=== PATIENT | male | born 1965 | race Caucasian/White ===

== ENCOUNTER 2020-08-02 10:52 | Inpatient (IN) ==
[2020-08-02] MEDS ORDERED: SODIUM CHLORIDE 0.9% 500 ML IV STA (11:39)
[2020-08-02 11:58] LABS: Appearance Urine Clear (Clear); Bilirubin Urine Negative (Negative); Blood Urine Negative (Negative); Color Urine Dark Yellow; Glucose Urine UA Negative (Negative); Ketones Urine Negative (Negative); Leukocyte Esterase Urine Negative (Negative); Nitrite Urine Negative (Negative); Protein Urine Negative (Negative); Specific Gravity Urine 1.018 (1.000-1.030); Urobilinogen Urine Positive (Negative); pH Urine 6.5 (4.5-7.5)
[2020-08-02 12:01] LABS: Basophils # (auto) 0.01 K/uL (0-0.2); Basophils % (auto) 0.1 %; Eosinophils # (auto) 0.05 K/uL (0-0.5); Eosinophils % (auto) 0.7 %; Hematocrit (blood only) 42.9 % (42-52); Hemoglobin 14.7 g/dL (14.0-18.0); Immature Granulocytes # (auto) 0.01 K/uL (0.00-0.02); Immature Granulocytes % (auto) 0.1 %; Lymphocytes # (auto) 0.59 K/uL (1.2-3.4); Lymphocytes % (auto) 8.8 %; Mean Corpuscular Hemoglobin 34.9 pg (25-34); Mean Corpuscular Hgb Conc 34.3 g/dL (32-36); Mean Corpuscular Volume 101.9 fL (80-100); Mean Platelet Volume 9.6 fL (7.4-10.4); Monocytes # (auto) 0.62 K/uL (0.11-0.59); Monocytes % (auto) 9.2 %; Neutrophils # (auto) 5.43 K/uL (1.4-6.5); Neutrophils % (auto) 81.1 %; Platelet Count 249 K/uL (130-400); RDW Standard Deviation 48.5 fL (36.4-46.3); Red Blood Count 4.21 M/uL (4.7-6.1); White Blood Count 6.71 K/uL (4.8-10.8)
[2020-08-02] MEDS ORDERED: HYDROmorphone INJ 0.5 MG/0.5 ML SYR IV STA ×2 (12:11→12:48)
[2020-08-02] MEDS ORDERED: ONDANSETRON INJ 2 MG/ML 2 ML VIAL IV STA (12:11)
[2020-08-02 12:12] LABS: Albumin Level 3.7 gm/dl (3.4-5.0); BUN Creatinine Ratio 13.7 (10-20); Calcium 9.8 mg/dl (8.5-10.1); Creatinine Clr Calc Pharmacy 85.6 ml/min; Est GFR (African American) 90.1; Est GFR (Non-African American) 77.7; Potassium 3.7 mmol/L (3.5-5.1)
[2020-08-02 12:15] LABS: Bilirubin,Total 2.7 mg/dl (0.2-1); Globulin 3.6 gm/dl (2.5-4.0); Total Protein 7.3 gm/dl (6.4-8.2)
[2020-08-02] MEDS ORDERED: OPTIRAY 300 100mL IV ONE (13:16)
--- NOTE | 2020-08-02 13:40 | CT Scan Report ---
CT abd pelvis IV con only CLINICAL HISTORY: Epigastric pain COMPARISON STUDY: None. TECHNIQUE: Patient was scanned in a dynamic helical fashion during intravenous administration of 89 c c of Optiray 300 A dose lowering technique was utilized adhering to the principles of ALARA. CT DOSE: 511.12 mGy.cm FINDINGS: Lower chest: There are bibasilar atelectatic changes. Liver: There is mild hepatic steatosis. No focal hepatic masses are visualized. There is minimal duct al prominence. Gallbladder: Mildly distended. There is mild gallbladder wall thickening. No calculi are visualized o n CT scanning. There is borderline common bile duct enlargement. There is borderline common bile duct wall thickening. Spleen: Normal in size and attenuation. Pancreas: Unremarkable. Adrenal glands: Unremarkable. Kidneys: There is symmetric renal cortical enhancement. The kidneys are normal in size without hydron ephrosis. Bowel: There are no transition zones indicate bowel obstruction. There is no evidence of acute divert iculitis. The appendix is not visualized with certainty. There are no findings to indicate acute appe ndicitis. Peritoneum: There is trace free pelvic fluid. There is no free intraperitoneal air. Vasculature: The abdominal aorta is normal in course and caliber. Adenopathy: None. Pelvic viscera: The bladder, and pelvic viscera are unremarkable. Skeletal structures: No destructive osseous lesions are seen. IMPRESSION: 1. No evidence of bowel obstruction. No evidence of free air 2. Mild gallbladder distention, and mild gallbladder wall thickening. Borderline common bile duct enl argement and wall thickening. Minimally prominent central intrahepatic biliary ducts. Clinical correl ation with regards to cholecystitis is recommended. A biliary ultrasound should be considered in foll ow-up. ACT 112: Negative or not required by law. Electronically signed by: Jacob Jose M.D. 08/02/2020 1:38 PM
--- NOTE | 2020-08-02 15:36 | Electrocardiogram Report ---
Test Reason : Blood Pressure : / mmHG Vent. Rate : 049 BPM Atrial Rate : 049 BPM P-R Int : 156 ms QRS Dur : 092 ms QT Int : 432 ms P-R-T Axes : 060 011 004 degrees QTc Int : 390 ms Sinus bradycardia Prominent U waves(consider hypokalemia,drug effect, etc.) Abnormal ECG No previous ECGs available Confirmed by Montez Eden ([id number]) on 08/02/2020 3:35:41 PM Referred By: Confirmed By:Montez Eden
--- NOTE | 2020-08-02 15:43 | Ultrasound Report ---
ULTRASOUND RIGHT UPPER QUADRANT ABDOMEN CLINICAL HISTORY: Right upper quadrant abdominal pain. COMPARISON STUDY: Abdominal CT performed the same day 08/02/2020. TECHNIQUE: Real-time, grayscale, and color flow sonography of the right upper quadrant of the abdomen was performed. Images are reviewed in the transverse and longitudinal planes. FINDINGS: Liver: The liver is mildly enlarged and demonstrates heterogeneously increased echotexture consistent with hepatic steatosis. There is no intrahepatic biliary ductal dilatation. The main portal vein is patent. Gallbladder: The gallbladder is is distended. The gallbladder wall is mildly thickened and edematous, measuring up to 4 mm. No shadowing gallstones are identified. A sonographic Gastelum's sign is reporte dly absent; however, the patient received analgesia. The common bile duct measures up to 0.3 cm in di ameter. Pancreas: Visualized portions of the pancreatic head and body are normal in appearance. Right kidney: Survey images of the right kidney demonstrate normal size and echotexture. There is no hydronephrosis. Ascites: There is trace prostatic ascites. IMPRESSION: 1. Abnormal gallbladder as above. Although no shadowing gallstones are identified, findings are emmie rning for acute cholecystitis. Clinical and laboratory correlation will be required. If clinically wa rranted a nuclear hepatobiliary scan could be considered for further assessment. 2. Hepatomegaly and hepatic steatosis. 3. Trace perihepatic ascites. ACT 112: Negative or not required by law. Electronically signed by: Leif Granda M.D. 08/02/2020 3:42 PM
[2020-08-02] MEDS ORDERED: PIPERACILLIN/TAZOBACTAM 4.5 GM/120 ML BAG IV ONE (15:56)
[2020-08-02] MEDS ORDERED: PIPERACILL/TAZOBAC CONSULT ACTIVE PRN ×2 (15:56→19:19)
--- NOTE | 2020-08-02 16:49 | History & Physical Report ---
Date of Service August 02, 2020 Assessment & Plan (1) Acute cholecystitis: Presents with acute right upper quadrant pain, elevated LFTs and obstructive pattern, and borderline dilated CBD and dilated intrahepatic biliary ducts With evidence of acute cholecystitis both on CT abdomen/pelvis and RUQ US. -Admit to medical/surgical floor for further evaluation and treatment -Check MRCP to rule out choledocholithiasis which is suspected -Continue IV Zosyn -Consult GI as may need ERCP-not emergent at this time as there is no signs of ascending cholangitis-GI was notified personally by me -Consult surgery to evaluate for cholecystectomy -Follow LFTs, CBC, BMP -Pain control with IV Dilaudid as needed -Keep n.p.o. -Start maintenance fluids with LR at 100 mL's per hour He is typically very active, walks many miles per week and can easily go up and down flight of stairs without any chest pain or shortness of breath. 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 Initially, he waited to see if it would go away and tried to eat some breakfast but then it got much worse and became severe. Pain is nonradiating, feels like a fist punching into his gut, and was associated with sweating, but no nausea or vomiting. He had a bowel movement this morning that he reports was "dry" and unusual for him but no blood. He denies any fevers or chills. He has no prior history of gallbladder or pancreas problems. He does drink 2 or 3 alcoholic drinks every day. In the ER, he was found to have elevated LFTs and an obstructive pattern, normal lipase, and CT of the abdomen/pelvis showed mildly distended gallbladder with mild gallbladder wall thickening and borderline CBD enlargement with borderline CBD wall thickening, no cholelithiasis noted, and mildly prominent central intrahepatic biliary ducts. Gallbladder ultrasound showed distended gallbladder with gallbladder wall thickening, no gallstones, and CBD was only 3 mm in diameter, and trace perihepatic ascites. In the ER, he received IV Dilaudid x2 doses, 1 L normal saline, and IV Zofran, as well as IV Zosyn. He will be admitted for acute cholecystitis with suspected choledocholithiasis. Allergies Allergy/AdvReac Type Severity Reaction Status Date / Time No Known Allergies Allergy Unverified 08/02/20 14:15 Home Medications Medication Instructions Recorded Confirmed Type atorvastatin 40 mg PO HS 08/02/20 08/02/20 History loratadine 10 mg PO DAILY PRN 08/02/20 08/02/20 History milk thistle 0 mg PO DAILY 08/02/20 08/02/20 History multivitamin 1 tab PO DAILY 08/02/20 08/02/20 History selenium 100 mcg PO DAILY 08/02/20 08/02/20 History turmeric 400 mg PO DAILY 08/02/20 08/02/20 History valacyclovir 500 mg PO UD 08/02/20 08/02/20 History Past Med/Surg History Medical History (Updated 08/02/20 @ 18:10 by Melba Berkowitz MD) Hyperlipidemia Recurrent cold sores Seasonal allergies Surgical History History of ankle surgery Family History Mother , Age 64 Cirrhosis with alcoholism Social History (Updated 08/02/20 @ 18:05 by Melba Berkowitz MD) Smoking Status: Never smoker Hx Alcohol Use: Yes Alcohol type: beer and hard liquor Alcohol type Comment: 2- 3 drinks daily Alcohol Intake Frequency: 4 or More x per/Week Hx Substance Use: No marital status: Feels Safe at Home: Yes Review of Systems Review of Systems: All systems reviewed & are unremarkable except as noted in HPI & below Physical Exam Constitutional: WD/WN, vitals as above Eyes: + anicteric sclerae ENMT: external ear and nose normal, oropharynx normal Neck: trachea midline, no thyromegaly Respiratory: normal respiratory effort, lungs clear to auscultation Cardiovascular: RRR, no murmur, no edema Chest (Breasts): Chest: normal inspection of chest Gastrointestinal (Abdomen): Inspection/Auscultation: abdomen normal to inspection and normal bowel sounds; abdomen not distended Percussion/Palpation: + abdomen tender (in RUQ w/o guarding or rebound) and abdo men soft; no guarding and abdomen not rigid Musculoskeletal: Extremities: extremities normal to inspection; no cyanosis and no clubbing Skin: no rashes, warm and dry Neurologic: moves all extremities and awake; no focal motor deficits Psychiatric: A+Ox3, euthymic affect Lymphatic: no lymphedema Results & Data Results & Data ([facility]) Vital Signs (Past 12 Hours) Vital Signs Temp Pulse Resp BP Pulse Ox 08/02/20 14:31 51 L 17 136/92 99 08/02/20 14:30 63 22 98 08/02/20 14:01 54 L 16 96 08/02/20 14:00 51 L 22 141/93 H 96 08/02/20 13:31 52 L 15 93 08/02/20 13:30 51 L 16 129/88 94 08/02/20 13:01 46 L 10 L 99 08/02/20 13:00 44 L 10 L 170/96 H 100 08/02/20 12:31 46 L 20 169/109 H 94 08/02/20 12:30 46 L 17 100 08/02/20 12:25 54 L 14 178/102 H 99 08/02/20 12:24 54 L 27 H 175/108 H 100 08/02/20 12:00 52 L 14 100 08/02/20 11:38 54 L 16 92 08/02/20 11:00 36.4 C L 57 L 16 154/91 H 99 Laboratory Results 08/02/20 08/02/20 08/02/20 Range/Units 16:22 16:22 11:30 WBC (4.8-10.8) K/uL RBC (4.7-6.1) M/uL Hgb (14.0-18.0) g/dL Hct (42-52) % MCV (80-100) fL MCH (25-34) pg MCHC (32-36) g/dL RDW Std Deviation (36.4-46.3) fL RDW Coeff of Chris (11.5-14.5) % Plt Count (130-400) K/uL MPV (7.4-10.4) fL Immature Gran % (Auto) % Neut % (Auto) % Lymph % (Auto) % Ada % (Auto) % Eos % (Auto) % Baso % (Auto) % Neut # (Auto) (1.4-6.5) K/uL Lymph # (Auto) (1.2-3.4) K/uL Ada # (Auto) (0.11-0.59) K/uL Eos # (Auto) (0-0.5) K/uL Baso # (Auto) (0-0.2) K/uL Immature Gran # (Auto) (0.00-0.02) K/uL Sodium (136-145) mmol/L Potassium (3.5-5.1) mmol/L Chloride (98-107) mmol/L Carbon Dioxide (21-32) mmol/L Anion Gap (3-11) BUN (7-18) mg/dl Creatinine (0.6-1.4) mg/dl Est Cr Clr Drug Dosing ml/min Est GFR ( Amer) Est GFR (Non-Af Amer) BUN/Creatinine Ratio (10-20) Glucose (70-99) mg/dl Calcium (8.5-10.1) mg/dl Total Bilirubin (0.2-1) mg/dl AST (15-37) U/L ALT (12-78) U/L Alkaline Phosphatase (45-117) U/L Troponin I < 0.015 (0-0.045) ng/ml Total Protein (6.4-8.2) gm/dl Albumin (3.4-5.0) gm/dl Globulin (2.5-4.0) gm/dl Albumin/Globulin Ratio (0.9-2) Lipase (73-393) U/L Urine Color Urine Appearance (Clear) Urine pH (4.5-7.5) Ur Specific Irving (1.000-1.030) Urine Protein (Negative) Urine Glucose (UA) (Negative) Urine Ketones (Negative) Urine Blood (Negative) Urine Nitrite (Negative) Urine Bilirubin (Negative) Urine Urobilinogen (Negative) Ur Leukocyte Esterase (Negative) COVID-19 Eval Order CovFluRsv at [facility] SARS-CoV-2 (PCR) Pending Influenza Type A (PCR) Pending Influenza Type B (PCR) Pending RSV (RT-PCR) Pending 08/02/20 08/02/20 08/02/20 Range/Units 11:30 11:30 11:20 WBC 6.71 (4.8-10.8) K/uL RBC 4.21 L (4.7-6.1) M/uL Hgb 14.7 (14.0-18.0) g/dL Hct 42.9 (42-52) % MCV 101.9 H (80-100) fL MCH 34.9 H (25-34) pg MCHC 34.3 (32-36) g/dL RDW Std Deviation 48.5 H (36.4-46.3) fL RDW Coeff of Chris 13.0 (11.5-14.5) % Plt Count 249 (130-400) K/uL MPV 9.6 (7.4-10.4) fL Immature Gran % (Auto) 0.1 % Neut % (Auto) 81.1 % Lymph % (Auto) 8.8 % Ada % (Auto) 9.2 % Eos % (Auto) 0.7 % Baso % (Auto) 0.1 % Neut # (Auto) 5.43 (1.4-6.5) K/uL Lymph # (Auto) 0.59 L (1.2-3.4) K/uL Ada # (Auto) 0.62 H (0.11-0.59) K/uL Eos # (Auto) 0.05 (0-0.5) K/uL Baso # (Auto) 0.01 (0-0.2) K/uL Immature Gran # (Auto) 0.01 (0.00-0.02) K/uL Sodium 139 (136-145) mmol/L Potassium 3.7 (3.5-5.1) mmol/L Chloride 103 (98-107) mmol/L Carbon Dioxide 31 (21-32) mmol/L Anion Gap 5.0 (3-11) BUN 15 (7-18) mg/dl Creatinine 1.07 (0.6-1.4) mg/dl Est Cr Clr Drug Dosing 85.6 ml/min Est GFR ( Amer) 90.1 Est GFR (Non-Af Amer) 77.7 BUN/Creatinine Ratio 13.7 (10-20) Glucose 151 H (70-99) mg/dl Calcium 9.8 (8.5-10.1) mg/dl Total Bilirubin 2.7 H (0.2-1) mg/dl AST 496 H (15-37) U/L ALT 520 H (12-78) U/L Alkaline Phosphatase 308 H (45-117) U/L Troponin I (0-0.045) ng/ml Total Protein 7.3 (6.4-8.2) gm/dl Albumin 3.7 (3.4-5.0) gm/dl Globulin 3.6 (2.5-4.0) gm/dl Albumin/Globulin Ratio 1.0 (0.9-2) Lipase 75 (73-393) U/L Urine Color Dark Yellow Urine Appearance Clear (Clear) Urine pH 6.5 (4.5-7.5) Ur Specific Irving 1.018 (1.000-1.030) Urine Protein Negative (Negative) Urine Glucose (UA) Negative (Negative) Urine Ketones Negative (Negative) Urine Blood Negative (Negative) Urine Nitrite Negative (Negative) Urine Bilirubin Negative (Negative) Urine Urobilinogen Positive H (Negative) Ur Leukocyte Esterase Negative (Negative) COVID-19 Eval Order SARS-CoV-2 (PCR) Influenza Type A (PCR) Influenza Type B (PCR) RSV (RT-PCR) Diagnostic Findings Abdomen/Pelvis CT 08/02/20 12:12 CT abd pelvis IV con only CLINICAL HISTORY: Epigastric pain COMPARISON STUDY: None. TECHNIQUE: Patient was scanned in a dynamic helical fashion during intravenous administration of 89 cc of Optiray 300 A dose lowering technique was utilized adhering to the principles of ALARA. CT DOSE: 511.12 mGy.cm FINDINGS: Lower chest: There are bibasilar atelectatic changes. Liver: There is mild hepatic steatosis. No focal hepatic masses are visualized. There is minimal ductal prominence. Gallbladder: Mildly distended. There is mild gallbladder wall thickening. No calculi are visualized on CT scanning. There is borderline common bile duct enlargement. There is borderline common bile duct wall thickening. Spleen: Normal in size and attenuation. Pancreas: Unremarkable. Adrenal glands: Unremarkable. Kidneys: There is symmetric renal cortical enhancement. The kidneys are normal in size without hydronephrosis. Bowel: There are no transition zones indicate bowel obstruction. There is no evidence of acute diverticulitis. The appendix is not visualized with certainty. There are no findings to indicate acute appendicitis. Peritoneum: There is trace free pelvic fluid. There is no free intraperitoneal air. Vasculature: The abdominal aorta is normal in course and caliber. Adenopathy: None. Pelvic viscera: The bladder, and pelvic viscera are unremarkable. Skeletal structures: No destructive osseous lesions are seen. IMPRESSION: 1. No evidence of bowel obstruction. No evidence of free air 2. Mild gallbladder distention, and mild gallbladder wall thickening. Borderline common bile duct enlargement and wall thickening. Minimally prominent central intrahepatic biliary ducts. Clinical correlation with regards to cholecystitis is recommended. A biliary ultrasound should be considered in follow-up. ACT 112: Negative or not required by law. Electronically signed by: Jacob Jose M.D. 08/02/2020 1:38 PM Gallbladder Ultrasound 08/02/20 13:45 ULTRASOUND RIGHT UPPER QUADRANT ABDOMEN CLINICAL HISTORY: Right upper quadrant abdominal pain. COMPARISON STUDY: Abdominal CT performed the same day 08/02/2020. TECHNIQUE: Real-time, grayscale, and color flow sonography of the right upper quadrant of the abdomen was performed. Images are reviewed in the transverse and longitudinal planes. FINDINGS: Liver: The liver is mildly enlarged and demonstrates heterogeneously increased echotexture consistent with hepatic steatosis. There is no intrahepatic biliary ductal dilatation. The main portal vein is patent. Gallbladder: The gallbladder is is distended. The gallbladder wall is mildly thickened and edematous, measuring up to 4 mm. No shadowing gallstones are identified. A sonographic Gastelum's sign is reportedly absent; however, the patient received analgesia. The common bile duct measures up to 0.3 cm in diameter. Pancreas: Visualized portions of the pancreatic head and body are normal in appearance. Right kidney: Survey images of the right kidney demonstrate normal size and echotexture. There is no hydronephrosis. Ascites: There is trace prostatic ascites. IMPRESSION: 1. Abnormal gallbladder as above. Although no shadowing gallstones are identified, findings are concerning for acute cholecystitis. Clinical and laboratory correlation will be required. If clinically warranted a nuclear hepatobiliary scan could be considered for further assessment. 2. Hepatomegaly and hepatic steatosis. 3. Trace perihepatic ascites. ACT 112: Negative or not required by law. Electronically signed by: Leif Granda M.D. 08/02/2020 3:42 PM ECG Additional Comments: ECG on 08/02/2020 at 1135 with sinus bradycardia, rate 49, prominent U waves Code Status & VTE Plan Code Status Full code VTE Prophylaxis Plan VTE Prophylaxis will be ordered: Yes PG Care Time/CCT Total # of Minutes Spent Total Time Spent with Patient: Total time spent is greater than 50% in coordination of care (as documented) at patient's floor/unit and/or counseling patient: Coding Level of Care Code 38389 Initial Inpt Care Lvl 3 Diagnoses Acute cholecystitis K81.0 Elevated LFTs R79.89 Abdominal pain R10.9 Hyperlipidemia E78.5 DVT prophylaxis Z29.9
[2020-08-02 17:10] LABS: Influenza A virus by PCR Negative (Neg); Influenza B virus by PCR Negative (Neg); RSV by PCR Negative (Neg); SARS CoV2 RNA(COVID-19) InHosp NEGATIVE (Negative)
--- NOTE | 2020-08-02 19:24 | Emergency Department Note ---
History of Present Illness General Chief complaint: Abdominal Pain Stated complaint: SEVERE ABDOMINAL PAIN SINCE 6AM Time Seen by Provider: 08/02/20 11:47 History of Present Illness Maximum Pain Intensity: 1 54-year-old male who presents to emergency department with complaint of intermittent and sharp epigastric pain that started this morning at the time of awakening. The patient reports that the pain does occasionally radiate into the back. He denies any pain extending into the chest, shoulder, neck or lower abdomen. The patient reports that he did drink a moderate amount of alcohol last night. He also admits to a history of significant alcohol use. He has a sister who has a history of cirrhosis. The patient denies any personal history of GERD, pancreatitis, hepatitis, kidney stones or other bowel disease. The patient reports that the pain feels better when laying on his back, worse when laying on his stomach. He denies any shortness of breath, significant nausea, f ever, constipation, diarrhea or urinary symptoms. The patient rates his discomfort an 8 out of 10. Home Medications Medication Instructions Recorded Confirmed Type atorvastatin 40 mg PO HS 08/02/20 08/02/20 History loratadine 10 mg PO DAILY PRN 08/02/20 08/02/20 History milk thistle 0 mg PO DAILY 08/02/20 08/02/20 History multivitamin 1 tab PO DAILY 08/02/20 08/02/20 History selenium 100 mcg PO DAILY 08/02/20 08/02/20 History turmeric 400 mg PO DAILY 08/02/20 08/02/20 History valacyclovir 500 mg PO UD 08/02/20 08/02/20 History Allergies Allergy/AdvReac Type Severity Reaction Status Date / Time No Known Allergies Allergy Unverified 08/02/20 14:15 Past Med/Surg History Medical History Acute arthritis Hyperlipidemia Recurrent cold sores Seasonal allergies Surgical History History of ankle surgery Family History Mother , Age 64 Cirrhosis with alcoholism Social History Smoking Status: Never smoker Second Hand Exposure: No; Do You Dip or Chew Tobacco: No; Tobacco Cessation Education Requested by Patient: No Hx Alcohol Use: Yes Alcohol type: wine and hard liquor Alcohol type Comment: 2- 3 drinks daily Alcohol Intake Frequency: 4 or More x per/Week Hx Substance Use: No Preferred Language: Persian Communication Ability: Effective Dispatcher Electric Power Required: No Beliefs That Will Affect Care: None marital status: Current Living Situation: Spouse Other Information That Helps Us Care for You: No Feels Safe at Home: Yes Assistive Devices: Glasses Review of Systems 10 system review was performed and was negative except for pertinent positives and negatives as indicated in history of present illness Physical Exam Vital Signs Vital Signs - 24 hr 08/02/20 11:00 08/02/20 11:38 08/02/20 12:00 Temperature 36.4 C L Temperature Source Temporal Artery Scan Pulse Rate 57 L 54 L 52 L Pulse Rate from SpO2 Sensor 51 L 56 L Respiratory Rate 16 16 14 Blood Pressure 154/91 H Blood Pressure Mean 112 Pulse Oximetry 99 92 100 Sepsis Recent Fever Within 48 Hours No Sepsis New/Unexplained Change in Mental Status N/A Sepsis Action Taken by Nursing No Action Required 08/02/20 12:24 08/02/20 12:25 08/02/20 12:30 Temperature Temperature Source Pulse Rate 54 L 54 L 46 L Pulse Rate from SpO2 Sensor 54 L 54 L 47 L Respiratory Rate 27 H 14 17 Blood Pressure 175/108 H 178/102 H Blood Pressure Mean 130 127 Pulse Oximetry 100 99 100 Sepsis Recent Fever Within 48 Hours Sepsis New/Unexplained Change in Mental Status Sepsis Action Taken by Nursing 08/02/20 12:31 08/02/20 13:00 08/02/20 13:01 Temperature Temperature Source Pulse Rate 46 L 44 L 46 L Pulse Rate from SpO2 Sensor 47 L 44 L 46 L Respiratory Rate 20 10 L 10 L Blood Pressure 169/109 H 170/96 H Blood Pressure Mean 129 120 Pulse Oximetry 94 100 99 Sepsis Recent Fever Within 48 Hours Sepsis New/Unexplained Change in Mental Status Sepsis Action Taken by Nursing 08/02/20 13:30 08/02/20 13:31 08/02/20 14:00 Temperature Temperature Source Pulse Rate 51 L 52 L 51 L Pulse Rate from SpO2 Sensor 50 L 52 L 51 L Respiratory Rate 16 15 22 Blood Pressure 129/88 141/93 H Blood Pressure Mean 101 109 Pulse Oximetry 94 93 96 Sepsis Recent Fever Within 48 Hours Sepsis New/Unexplained Change in Mental Status Sepsis Action Taken by Nursing 08/02/20 14:01 08/02/20 14:30 08/02/20 14:31 Temperature Temperature Source Pulse Rate 54 L 63 51 L Pulse Rate from SpO2 Sensor 56 L 63 51 L Respiratory Rate 16 22 17 Blood Pressure 136/92 Blood Pressure Mean 106 Pulse Oximetry 96 98 99 Sepsis Recent Fever Within 48 Hours Sepsis New/Unexplained Change in Mental Status Sepsis Action Taken by Nursing 08/02/20 14:32 08/02/20 16:21 08/02/20 16:22 Temperature Temperature Source Pulse Rate 50 L 46 L 48 L Pulse Rate from SpO2 Sensor 51 L Respiratory Rate 17 15 13 Blood Pressure 129/92 Blood Pressure Mean 104 Pulse Oximetry 97 Sepsis Recent Fever Within 48 Hours Sepsis New/Unexplained Change in Mental Status Sepsis Action Taken by Nursing 08/02/20 16:30 08/02/20 16:31 08/02/20 17:00 Temperature Temperature Source Pulse Rate 49 L 53 L 46 L Pulse Rate from SpO2 Sensor Respiratory Rate 19 19 27 H Blood Pressure 130/89 Blood Pressure Mean 102 Pulse Oximetry Sepsis Recent Fever Within 48 Hours Sepsis New/Unexplained Change in Mental Status Sepsis Action Taken by Nursing 08/02/20 17:01 08/02/20 17:02 08/02/20 17:30 Temperature Temperature Source Pulse Rate 53 L 45 L 47 L Pulse Rate from SpO2 Sensor Respiratory Rate 21 20 24 Blood Pressure 136/96 138/89 Blood Pressure Mean 109 105 Pulse Oximetry Sepsis Recent Fever Within 48 Hours Sepsis New/Unexplained Change in Mental Status Sepsis Action Taken by Nursing 08/02/20 17:31 Temperature Temperature Source Pulse Rate 44 L Pulse Rate from SpO2 Sensor Respiratory Rate 17 Blood Pressure Blood Pressure Mean Pulse Oximetry Sepsis Recent Fever Within 48 Hours Sepsis New/Unexplained Change in Mental Status Sepsis Action Taken by Nursing CONSTITUTIONAL: Healthy and well nourished. Alert and oriented X 3. Patient appears in moderately severe discomfort. HEENT: Normocephalic, atraumatic. Pupils equal, round and reactive. No scleral icterus or conjunctival injection/pallor. NECK: Full active range of motion without discomfort. LYMPHATICS: No cervical chain adenopathy. RESPIRATORY: Clear to auscultation bilaterally with no wheezing, crackles, rhonchi or stridor. CARDIOVASCULAR: Regular rate and rhythm with no murmurs, rubs or gallops. GASTROINTESTINAL: Bowel sounds present in all quadrants. Examination shows epigastric tenderness to palpation. Negative McBurney's point tenderness. Negative Gastelum sign. Negative CVA tenderness. No abdominal rigidity, guarding or rebound. No fluid wave. MUSCULOSKELETAL: Full range of motion of all joints without discomfort. INTEGUMENTARY: No rash or other significant dermatologic conditions noted. HEMATOLOGIC: No ecchymosis or petechiae. PSYCHIATRIC: Positive affect. NEUROLOGIC: No focal neurologic deficits noted. Course Course Patient history and physical exam were performed. Nurses notes were reviewed. Vital signs were reviewed, showing a triage blood pressure of 169/109. Patient is also bradycardic at 46 bpm. IV access was established, and labs were drawn. The patient was hydrated with a liter normal saline, and administered IV Dilau did and Zofran. An ECG was performed showing a sinus bradycardia. The patient was placed on security monitor while in the emergency department. Review of labs shows a relatively normal CBC, BMP, lipase and troponin. Further review shows elevated liver transaminases with an AST of 496, ALT 520, alkaline phosphatase of 308 and total bilirubin of 2.7. An initial CT with IV contrast of the abdomen and pelvis showed evidence for mild gallbladder distention and wall thickening, along with borderline, bile duct enlargement and wall thickening. No other acute intra-abdominal findings such as bowel obstruction or free air was noted. After returning from CT, the patient did request additional an algesics, and was administered additional IV Dilaudid which significantly helped to control his pain. At this point, I did recommend gallbladder ultrasound, with the patient in agreement. Ultrasound was suggestive of acute cholecystitis. Findings were discussed with the patient. At this point, I did discuss the case with general surgery (Dr. Franklin), who recommended hospitalist admission for MRCP. The patient was in agreement with admission. He was ordered and administered IV Zosyn. He reported continued adequate pain control [facility] Please see further dictations for further treatment and final disposition. Administered Medications Piperacillin Sod/Tazobactam (Sod 3.375 gm/ Dextrose) 115 mls @ 28.75 mls/hr IV Q8H [facility]; Protocol Stop: 08/12/20 20:59 Last Admin: 08/02/20 20:15 Dose: 28.8 mls/hr Documented by: [id number] Lactated Ringer's (Lr) 1,000 mls @ 100 mls/hr IV .Q10H JAY Stop: 09/01/20 19:18 Last Admin: 08/02/20 20:13 Dose: 100 mls/hr Documented by: [id number] Discontinued Medications Hydromorphone HCl (Hydromorphone Inj 0.5 Mg/0.5 Ml Syr) 0.5 mg IV NOW STA Stop: 08/02/20 12:12 Last Admin: 08/02/20 12:21 Dose: 0.5 mg Documented by: [id number] Hydromorphone HCl (Hydromorphone Inj 0.5 Mg/0.5 Ml Syr) 0.5 mg IV NOW STA Stop: 08/02/20 12:49 Last Admin: 08/02/20 12:51 Dose: 0.5 mg Documented by: [id number] Sodium Chloride (Nss) 500 mls @ 999 mls/hr IV .Q31M STA Stop: 08/02/20 12:09 Last Infusion: 08/02/20 12:22 Dose: 0 mls/hr Documented by: [id number] Admin: 08/02/20 11:49 Dose: 999 mls/hr Documented by: [id number] Piperacillin Sod/Tazobactam Sod (Zosyn) 4.5 gm in 120 mls @ 240 mls/hr IV NOW ONE Stop: 08/02/20 16:25 Last Infusion: 08/02/20 17:09 Dose: 0 mls/hr Documented by: [id number] Admin: 08/02/20 16:22 Dose: 240 mls/hr Documented by: [id number] Ioversol (Optiray 300 100ml) 89 ml IV ONCE ONE Stop: 08/02/20 13:17 Last Admin: 08/02/20 13:18 Dose: 89 ml Documented by: [id number] Ondansetron HCl (Ondansetron Inj 2 Mg/Ml 2 Ml Vial) 4 mg IV NOW STA Stop: 08/02/20 12:12 Last Admin: 08/02/20 12:20 Dose: 4 mg Documented by: [id number] Medical Decision Making Medical Records Attestation: I reviewed the patient's medical records. Home Medications Current Medication List: was personally reviewed by me Laboratory Data Attestation: I reviewed the patient's lab results. Result diagrams: 08/02/20 11:30 08/02/20 11:30 Lab Results 08/02/20 08/02/20 08/02/20 Range/Units 11:20 11:30 11:30 WBC 6.71 (4.8-10.8) K/uL RBC 4.21 L (4.7-6.1) M/uL Hgb 14.7 (14.0-18.0) g/dL Hct 42.9 (42-52) % MCV 101.9 H (80-100) fL MCH 34.9 H (25-34) pg MCHC 34.3 (32-36) g/dL RDW Std Deviation 48.5 H (36.4-46.3) fL RDW Coeff of Chris 13.0 (11.5-14.5) % Plt Count 249 (130-400) K/uL MPV 9.6 (7.4-10.4) fL Immature Gran % (Auto) 0.1 % Neut % (Auto) 81.1 % Lymph % (Auto) 8.8 % [place] % (Auto) 9.2 % Eos % (Auto) 0.7 % Baso % (Auto) 0.1 % Neut # (Auto) 5.43 (1.4-6.5) K/uL Lymph # (Auto) 0.59 L (1.2-3.4) K/uL [place] # (Auto) 0.62 H (0.11-0.59) K/uL Eos # (Auto) 0.05 (0-0.5) K/uL Baso # (Auto) 0.01 (0-0.2) K/uL Immature Gran # (Auto) 0.01 (0.00-0.02) K/uL Sodium 139 (136-145) mmol/L Potassium 3.7 (3.5-5.1) mmol/L Chloride 103 (98-107) mmol/L Carbon Dioxide 31 (21-32) mmol/L Anion Gap 5.0 (3-11) BUN 15 (7-18) mg/dl Creatinine 1.07 (0.6-1.4) mg/dl Est Cr Clr Drug Dosing 85.6 ml/min Est GFR ( Amer) 90.1 Est GFR (Non-Af Amer) 77.7 BUN/Creatinine Ratio 13.7 (10-20) Glucose 151 H (70-99) mg/dl Calcium 9.8 (8.5-10.1) mg/dl Total Bilirubin 2.7 H (0.2-1) mg/dl AST 496 H (15-37) U/L ALT 520 H (12-78) U/L Alkaline Phosphatase 308 H (45-117) U/L Troponin I (0-0.045) ng/ml Total Protein 7.3 (6.4-8.2) gm/dl Albumin 3.7 (3.4-5.0) gm/dl Globulin 3.6 (2.5-4.0) gm/dl Albumin/Globulin Ratio 1.0 (0.9-2) Lipase 75 (73-393) U/L Urine Color Dark Yellow Urine Appearance Clear (Clear) Urine pH 6.5 (4.5-7.5) Ur Specific Sage 1.018 (1.000-1.030) Urine Protein Negative (Negative) Urine Glucose (UA) Negative (Negative) Urine Ketones Negative (Negative) Urine Blood Negative (Negative) Urine Nitrite Negative (Negative) Urine Bilirubin Negative (Negative) Urine Urobilinogen Positive H (Negative) Ur Leukocyte Esterase Negative (Negative) COVID-19 Eval Order SARS-CoV-2 (PCR) (Negative) Influenza Type A (PCR) (Neg) Influenza Type B (PCR) (Neg) RSV (RT-PCR) (Neg) 08/02/20 08/02/20 08/02/20 Range/Units 11:30 16:22 16:22 WBC (4.8-10.8) K/uL RBC (4.7-6.1) M/uL Hgb (14.0-18.0) g/dL Hct (42-52) % MCV (80-100) fL MCH (25-34) pg MCHC (32-36) g/dL RDW Std Deviation (36.4-46.3) fL RDW Coeff of Chris (11.5-14.5) % Plt Count (130-400) K/uL MPV (7.4-10.4) fL Immature Gran % (Auto) % Neut % (Auto) % Lymph % (Auto) % [place] % (Auto) % Eos % (Auto) % Baso % (Auto) % Neut # (Auto) (1.4-6.5) K/uL Lymph # (Auto) (1.2-3.4) K/uL [place] # (Auto) (0.11-0.59) K/uL Eos # (Auto) (0-0.5) K/uL Baso # (Auto) (0-0.2) K/uL Immature Gran # (Auto) (0.00-0.02) K/uL Sodium (136-145) mmol/L Potassium (3.5-5.1) mmol/L Chloride (98-107) mmol/L Carbon Dioxide (21-32) mmol/L Anion Gap (3-11) BUN (7-18) mg/dl Creatinine (0.6-1.4) mg/dl Est Cr Clr Drug Dosing ml/min Est GFR ( Amer) Est GFR (Non-Af Amer) BUN/Creatinine Ratio (10-20) Glucose (70-99) mg/dl Calcium (8.5-10.1) mg/dl Total Bilirubin (0.2-1) mg/dl AST (15-37) U/L ALT (12-78) U/L Alkaline Phosphatase (45-117) U/L Troponin I < 0.015 (0-0.045) ng/ml Total Protein (6.4-8.2) gm/dl Albumin (3.4-5.0) gm/dl Globulin (2.5-4.0) gm/dl Albumin/Globulin Ratio (0.9-2) Lipase (73-393) U/L Urine Color Urine Appearance (Clear) Urine pH (4.5-7.5) Ur Specific Sage (1.000-1.030) Urine Protein (Negative) Urine Glucose (UA) (Negative) Urine Ketones (Negative) Urine Blood (Negative) Urine Nitrite (Negative) Urine Bilirubin (Negative) Urine Urobilinogen (Negative) Ur Leukocyte Esterase (Negative) COVID-19 Eval Order CovFluRsv at [facility] SARS-CoV-2 (PCR) NEGATIVE (Negative) Influenza Type A (PCR) Negative (Neg) Influenza Type B (PCR) Negative (Neg) RSV (RT-PCR) Negative (Neg) Imaging Data Attestation: I personally reviewed and interpreted this imaging study as fol lows: My Impression: My interpretation of a CT with IV contrast of the abdomen and pelvis does show an abnormal gallbladder and common bile duct, concerning for possible acute cholecystitis. Additional findings on CT imaging does not suggest or free air. Gallbladder ultrasound is concerning for acute cholecystitis. Radiologist reports were also reviewed. Radiologist's Impression: Abdomen/Pelvis CT 08/02/20 12:12 CT abd pelvis IV con only CLINICAL HISTORY: Epigastric pain COMPARISON STUDY: None. TECHNIQUE: Patient was scanned in a dynamic helical fashion during intravenous administration of 89 cc of Optiray 300 A dose lowering technique was utilized adhering to the principles of ALARA. CT DOSE: 511.12 mGy.cm FINDINGS: Lower chest: There are bibasilar atelectatic changes. Liver: There is mild hepatic steatosis. No focal hepatic masses are visualized. There is minimal ductal prominence. Gallbladder: Mildly distended. There is mild gallbladder wall thickening. No calculi are visualized on CT scanning. There is borderline common bile duct enlargement. There is borderline common bile duct wall thickening. Spleen: Normal in size and attenuation. Pancreas: Unremarkable. Adrenal glands: Unremarkable. Kidneys: There is symmetric renal cortical enhancement. The kidneys are normal in size without hydronephrosis. Bowel: There are no transition zones indicate bowel obstruction. There is no evidence of acute diverticulitis. The appendix is not visualized with certainty. There are no findings to indicate acute appendicitis. Peritoneum: There is trace free pelvic fluid. There is no free intraperitoneal air. Vasculature: The abdominal aorta is normal in course and caliber. Adenopathy: None. Pelvic viscera: The bladder, and pelvic viscera are unremarkable. Skeletal structures: No destructive osseous lesions are seen. IMPRESSION: 1. No evidence of bowel obstruction. No evidence of free air 2. Mild gallbladder distention, and mild gallbladder wall thickening. Borderline common bile duct enlargement and wall thickening. Minimally prominent central intrahepatic biliary ducts. Clinical correlation with regards to cholecystitis is recommended. A biliary ultrasound should be considered in follow-up. ACT 112: Negative or not required by law. Electronically signed by: Jacob Jose M.D. 08/02/2020 1:38 PM Gallbladder Ultrasound 08/02/20 13:45 ULTRASOUND RIGHT UPPER QUADRANT ABDOMEN CLINICAL HISTORY: Right upper quadrant abdominal pain. COMPARISON STUDY: Abdominal CT performed the same day 08/02/2020. TECHNIQUE: Real-time, grayscale, and color flow sonography of the right upper quadrant of the abdomen was performed. Images are reviewed in the transverse and longitudinal planes. FINDINGS: Liver: The liver is mildly enlarged and demonstrates heterogeneously increased echotexture consistent with hepatic steatosis. There is no intrahepatic biliary ductal dilatation. The main portal vein is patent. Gallbladder: The gallbladder is is distended. The gallbladder wall is mildly thickened and edematous, measuring up to 4 mm. No shadowing gallstones are identified. A sonographic Gastelum's sign is reportedly absent; however, the patient received analgesia. The common bile duct measures up to 0.3 cm in diameter. Pancreas: Visualized portions of the pancreatic head and body are normal in appearance. Right kidney: Survey images of the right kidney demonstrate normal size and echotexture. There is no hydronephrosis. Ascites: There is trace prostatic ascites. IMPRESSION: 1. Abnormal gallbladder as above. Although no shadowing gallstones are identified, findings are concerning for acute cholecystitis. Clinical and laboratory correlation will be required. If clinically warranted a nuclear hepatobiliary scan could be considered for further assessment. 2. Hepatomegaly and hepatic steatosis. 3. Trace perihepatic ascites. ACT 112: Negative or not required by law. Electronically signed by: Leif Granda M.D. 08/02/2020 3:42 PM Blood Pressure Blood Pressure Findings: Elevated blood pressure MDM Narrative Patient presents to the emergency department with complaint of epigastric pain that started earlier this morning. Work-up today is highly suggestive of acute cholecystitis. MRCP will need to be performed to rule out common bile duct obstruction. The patient is afebrile and has no leukocytosis to suggest overwhelming infection. Additional laboratory studies are not suggestive of pancreatitis. CT imaging also does not show evidence for diverticulitis, obvious appendicitis or bowel obstruction. No obstructive uropathy is appreciated, and urinalysis is not suggestive of infection. Impression & Plan Acute cholecystitis, Epigastric abdominal pain, History of alcohol use Discharge Plan Visit Data Chief Complaint: Abdominal Pain Stated Complaint: SEVERE ABDOMINAL PAIN SINCE 6AM ED Provider: Cirilo [place] ED Midlevel Provider: Roberto Medel Discharge Problem: Acute cholecystitis, Epigastric abdominal pain, History of alcohol use Patient Disposition: Admitted As Inpatient Discharge Instructions Interventions: ED Discharge Assessment Last Done: 08/02/20 18:37
--- NOTE | 2020-08-02 19:42 | Surgery Consultation ---
Date of Consultation August 02, 2020 Assessment & Plan (1) Epigastric abdominal pain: (2) Acute cholecystitis: pt is a 54 year-old male who was admitted to hospital for acute abdominal with acute cholecystitis and abdominal LFTs, IMP: acute cholecystitis, abnormal LFTS, plan, I agree with that hospitalist treatment plan, MRCP, Consult GI for possible ERCP,repeat labs in morning, will F/U for possible laparoscopic cholecystectomy, pt agrees with the plan, I answered all questions, Present on Admission?: Yes History of Present Illness Attending Physician: Melba Berkowitz MD History of Present Illness Chief Complaint: Abdominal pain Primary Care Provider: NO PCP This patient is a 54-year-old male with a history of hyperlipidemia who traveled here from [place] to supervisor opening and picking his son at [facility] who presents to the ER with right upper quadrant abdominal pain that came on acutely this morning. Initially, he waited to see if it would go away and tried to eat some breakfast but then it got much worse and became severe. Pain is nonradiating, feels like a fist punching into his gut, and was associated with sweating, but no nausea or vomiting. He had a bowel movement this morning that he reports was "dry" and unusual for him but no blood. He denies any fevers or chills. He has no prior history of gallbladder or pancreas problems. He does drink 2 or 3 alcoholic drinks every day. In the ER, he was found to have elevated LFTs and an obstructive pattern, normal lipase, and CT of the abdomen/pelvis showed mildly distended gallbladder with mild gallbladder wall thickening and borderline CBD enlargement with borderline CBD wall thickening, no cholelithiasis noted, and mildly prominent central intrahepatic biliary ducts. Gallbladder ultrasound showed distended gallbladder with gallbladder wall thickening, no gallstones, and CBD was only 3 mm in diameter, and trace perihepatic ascites. In the ER, he received IV Dilaudid x2 doses, 1 L normal saline, and IV Zofran, as well as IV Zosyn. He will be admitted for acute cholecystitis with suspected choledocholithiasis. I ( Jose M Franklin mD ) got a call for consult cholecystitis, I reviewed pt's H/P, labs, CT scan and U/S study with pt, pt is still have some pain on RUQ,pt is going to do MRCP , Allergies Allergy/AdvReac Type Severity Reaction Status Date / Time No Known Allergies Allergy Unverified 08/02/20 14:15 Home Medications Medication Instructions Recorded Confirmed Type atorvastatin 40 mg PO HS 08/02/20 08/02/20 History loratadine 10 mg PO DAILY PRN 08/02/20 08/02/20 History milk thistle 0 mg PO DAILY 08/02/20 08/02/20 History multivitamin 1 tab PO DAILY 08/02/20 08/02/20 History selenium 100 mcg PO DAILY 08/02/20 08/02/20 History turmeric 400 mg PO DAILY 08/02/20 08/02/20 History valacyclovir 500 mg PO UD 08/02/20 08/02/20 History Past Med/Surg History Medical History (Updated 08/02/20 @ 18:10 by Melba Berkowitz MD) Hyperlipidemia Recurrent cold sores Seasonal allergies Surgical History History of ankle surgery Family History Mother , Age 64 Cirrhosis with alcoholism Social History (Updated 08/02/20 @ 18:05 by Melba Berkowitz MD) Smoking Status: Never smoker Hx Alcohol Use: Yes Alcohol type: beer and hard liquor Alcohol type Comment: 2- 3 drinks daily Alcohol Intake Frequency: 4 or More x per/Week Hx Substance Use: No marital status: Feels Safe at Home: Yes Review of Systems Review of Systems: All systems reviewed & are unremarkable except as noted in HPI & below Allergies Allergy/AdvReac Type Severity Reaction Status Date / Time No Known Allergies Allergy Unverified 08/02/20 14:15 Home Medications Medication Instructions Recorded Confirmed Type atorvastatin 40 mg PO HS 08/02/20 08/02/20 History loratadine 10 mg PO DAILY PRN 08/02/20 08/02/20 History milk thistle 0 mg PO DAILY 08/02/20 08/02/20 History multivitamin 1 tab PO DAILY 08/02/20 08/02/20 History selenium 100 mcg PO DAILY 08/02/20 08/02/20 History turmeric 400 mg PO DAILY 08/02/20 08/02/20 History valacyclovir 500 mg PO UD 08/02/20 08/02/20 History Patient History Medical History (Updated 08/02/20 @ 19:29 by Katiuska Wilson RN) Acute arthritis Hyperlipidemia Recurrent cold sores Seasonal allergies Surgical History History of ankle surgery Family History Mother , Age 64 Cirrhosis with alcoholism Social History Smoking Status: Never smoker Second Hand Exposure: No; Do You Dip or Chew Tobacco: No; Tobacco Cessation Education Requested by Patient: No Hx Alcohol Use: Yes Alcohol type: wine and hard liquor Alcohol type Comment: 2- 3 drinks daily Alcohol Intake Frequency: 4 or More x per/Week Hx Substance Use: No Preferred Language: Angolan Communication Ability: Effective E D Tech Required: No Beliefs That Will Affect Care: None marital status: Current Living Situation: Spouse Other Information That Helps Us Care for You: No Feels Safe at Home: Yes Assistive Devices: Glasses Review of Systems Review of Systems: All systems reviewed & are unremarkable except as noted in HPI & below Constitutional: as per Subjective / HPI Eyes: as per Subjective / HPI Ear, Nose, Mouth, Throat: as per Subjective / HPI Respiratory: as per Subjective / HPI Cardiovascular: as per Subjective / HPI Additional Comments: hyperlipidemia Gastrointestinal: as per Subjective / HPI history of alcohol use Genitourinary: + as per Subjective / HPI Musculoskeletal: as per Subjective / HPI Integumentary: as per Subjective / HPI Neurologic: as per Subjective / HPI Psychiatric: as per Subjective / HPI Endocrine: as per Subjective / HPI Hematologic / Lymphatic: as per Subjective / HPI Physical Exam Constitutional: WD/WN, vitals as above well developed and well nourished Eyes: PERRL, conjunctivae normal, anicteric sclerae ENMT: external ear and nose normal, oropharynx normal Neck: trachea midline, no thyromegaly Respiratory: normal respiratory effort, lungs clear to auscultation Cardiovascular: RRR, no murmur, no edema Rate/Rhythm: regular rate and regular rhythm Gastrointestinal (Abdomen): Percussion/Palpation: + abdomen tender and abdomen soft mild tenderness at RUQ, no rebound pain, no distendBS + Musculoskeletal: no cyanosis or clubbing, extremities motor strength 5/5 Skin: no rashes, warm and dry Neurologic: awake Psychiatric: Orientation: alert and oriented x 3 Results & Data ([facility]) Vital Signs (Past 12 Hours) Vital Signs Temp Pulse Pulse Resp BP BP Pulse Ox 08/02/20 19:19 36.8 C 48 L 16 149/95 H 98 08/02/20 18:31 54 L 17 141/92 H 08/02/20 18:30 54 L 23 08/02/20 18:01 45 L 13 08/02/20 18:00 46 L 17 136/89 08/02/20 17:31 44 L 17 08/02/20 17:30 47 L 24 138/89 08/02/20 17:02 45 L 20 08/02/20 17:01 53 L 21 136/96 08/02/20 17:00 46 L 27 H 08/02/20 16:31 53 L 19 130/89 08/02/20 16:30 49 L 19 08/02/20 16:22 48 L 13 08/02/20 16:21 46 L 15 129/92 08/02/20 14:32 50 L 17 97 08/02/20 14:31 51 L 17 136/92 99 08/02/20 14:30 63 22 98 08/02/20 14:01 54 L 16 96 08/02/20 14:00 51 L 22 141/93 H 96 08/02/20 13:31 52 L 15 93 08/02/20 13:30 51 L 16 129/88 94 08/02/20 13:01 46 L 10 L 99 08/02/20 13:00 44 L 10 L 170/96 H 100 08/02/20 12:31 46 L 20 169/109 H 94 08/02/20 12:30 46 L 17 100 08/02/20 12:25 54 L 14 178/102 H 99 08/02/20 12:24 54 L 27 H 175/108 H 100 08/02/20 12:00 52 L 14 100 08/02/20 11:38 54 L 16 92 08/02/20 11:00 36.4 C L 57 L 16 154/91 H 99 Laboratory Results Abnormal lab results 08/02/20 08/02/20 08/02/20 Range/Units 11:20 11:30 11:30 RBC 4.21 L (4.7-6.1) M/uL MCV 101.9 H (80-100) fL MCH 34.9 H (25-34) pg RDW Std Deviation 48.5 H (36.4-46.3) fL Lymph # (Auto) 0.59 L (1.2-3.4) K/uL [place] # (Auto) 0.62 H (0.11-0.59) K/uL Glucose 151 H (70-99) mg/dl Total Bilirubin 2.7 H (0.2-1) mg/dl AST 496 H (15-37) U/L ALT 520 H (12-78) U/L Alkaline Phosphatase 308 H (45-117) U/L Urine Urobilinogen Positive H (Negative) Diagnostic Findings ULTRASOUND RIGHT UPPER QUADRANT ABDOMEN CLINICAL HISTORY: Right upper quadrant abdominal pain. COMPARISON STUDY: Abdominal CT performed the same day 08/02/2020. TECHNIQUE: Real-time, grayscale, and color flow sonography of the right upper quadrant of the abdomen was performed. Images are reviewed in the transverse and longitudinal planes. FINDINGS: Liver: The liver is mildly enlarged and demonstrates heterogeneously increased echotexture consistent with hepatic steatosis. There is no intrahepatic biliary ductal dilatation. The main portal vein is patent. Gallbladder: The gallbladder is is distended. The gallbladder wall is mildly thickened and edematous, measuring up to 4 mm. No shadowing gallstones are identified. A sonographic Gastelum's sign is reportedly absent; however, the patient received analgesia. The common bile duct measures up to 0.3 cm in diameter. Pancreas: Visualized portions of the pancreatic head and body are normal in appearance. Right kidney: Survey images of the right kidney demonstrate normal size and echotexture. There is no hydronephrosis. Ascites: There is trace prostatic ascites. IMPRESSION: 1. Abnormal gallbladder as above. Although no shadowing gallstones are identified, findings are concerning for acute cholecystitis. Clinical and laboratory correlation will be required. If clinically warranted a nuclear hepatobiliary scan could be considered for further assessment. 2. Hepatomegaly and hepatic steatosis. 3. Trace perihepatic ascites. CT abd pelvis IV con only CLINICAL HISTORY: Epigastric pain COMPARISON STUDY: None. TECHNIQUE: Patient was scanned in a dynamic helical fashion during intravenous administration of 89 cc of Optiray 300 A dose lowering technique was utilized adhering to the principles of ALARA. CT DOSE: 511.12 mGy.cm FINDINGS: Lower chest: There are bibasilar atelectatic changes. Liver: There is mild hepatic steatosis. No focal hepatic masses are visualized. There is minimal ductal prominence. Gallbladder: Mildly distended. There is mild gallbladder wall thickening. No calculi are visualized on CT scanning. There is borderline common bile duct enlargement. There is borderline common bile duct wall thickening. Spleen: Normal in size and attenuation. Pancreas: Unremarkable. Adrenal glands: Unremarkable. Kidneys: There is symmetric renal cortical enhancement. The kidneys are normal in size without hydronephrosis. Bowel: There are no transition zones indicate bowel obstruction. There is no evidence of acute diverticulitis. The appendix is not visualized with certainty. There are no findings to indicate acute appendicitis. Peritoneum: There is trace free pelvic fluid. There is no free intraperitoneal air. Vasculature: The abdominal aorta is normal in course and caliber. Adenopathy: None. Pelvic viscera: The bladder, and pelvic viscera are unremarkable. Skeletal structures: No destructive osseous lesions are seen. IMPRESSION: 1. No evidence of bowel obstruction. No evidence of free air 2. Mild gallbladder distention, and mild gallbladder wall thickening. Borderline common bile duct enlargement and wall thickening. Minimally prominent central intrahepatic biliary ducts. Clinical correlation with regards to cholecystitis is recommended. A biliary ultrasound should be considered in follow-up.
[2020-08-02] MEDS: LACTATED RINGER'S 1,000 ML IV SCH (20:13)
[2020-08-02] MEDS: PIPERACILLIN/TAZOBACTAM 3.375 GM in DEXTROSE 5% 100 ML IV SCH (20:15)
--- NOTE | 2020-08-02 20:22 | Magnetic Resonance Report ---
MRCP CLINICAL HISTORY: Right upper quadrant abdominal pain. Abnormal CT and ultrasound. COMPARISON STUDY: Abdominal CT and abdominal ultrasound performed the same day 08/02/2020. TECHNIQUE: Abdominal MRCP is performed utilizing various T2-weighted sequences in the axial and coron al planes. IV contrast was not administered for this examination. 3-D reformats are created and asses sed. FINDINGS: The gallbladder is distended. The gallbladder wall is thickened and edematous and there is trace cecilia cholecystic fluid. No gallstones are identified within the gallbladder lumen. There is mild intrahepa tic biliary ductal dilatation. The common bile duct at the hepatic hilum measures up to [address] There is an apparent filling defect within the midportion of the common bile duct (coronal image #72). The distal common duct appears normal in caliber at the ampulla. This could represent choledoc holithiasis or stricture. The intra and extrahepatic bile ducts demonstrate a mildly beaded appearanc e. The pancreatic duct is normal in caliber. The liver is mildly enlarged and steatotic. The unenhanced spleen, adrenal glands, kidneys, and pancr eas are grossly normal. The abdominal aorta is normal in caliber. There is no evidence of bowel obstr uction. There is trace perihepatic ascites. The bony structures are intact as imaged. No pleural effu alyssia is identified. IMPRESSION: 1. Abnormal gallbladder, typical in appearance for acute cholecystitis. 2. There is mild intra and extrahepatic biliary ductal dilatation. 3. There is an apparent filling defect within the midportion of the common bile duct which could repr esent choledocholithiasis or stricture. Choledocholithiasis is favored. Surgical or endoscopic assess ment is recommended. 4. The intra and extrahepatic bile ducts are slightly beaded in appearance. This is nonspecific and o f indeterminant significance. Electronically signed by: Leif Granda M.D. 08/02/2020 8:21 PM
[2020-08-03] MEDS: PIPERACILLIN/TAZOBACTAM 3.375 GM in DEXTROSE 5% 100 ML IV SCH ×3 (06:00→22:29)
[2020-08-03] MEDS: LACTATED RINGER'S 1,000 ML IV SCH ×3 (06:01→22:30)
[2020-08-03] MEDS ORDERED: MIDAZOLAM HCL 1 MG/ML 2ML VIAL ONE (07:07)
[2020-08-03] MEDS ORDERED: LIDOCAINE HCL 2% 2 ML VIAL/AMP(20MG/ML) INFIL ONE (07:07)
[2020-08-03] MEDS ORDERED: SUCCINYLCHOLINE CHLORIDE 20 MG/ML 10 ML VIAL IV ONE (07:07)
[2020-08-03] MEDS ORDERED: fentaNYL citrate 100 MCG/2 ML VIAL ONE (07:07)
[2020-08-03] MEDS ORDERED: PROPOFOL IV EMULSION 10 MG/ML 20 ML VIAL IV ONE (07:07)
[2020-08-03] MEDS ORDERED: ONDANSETRON INJ 2 MG/ML 2 ML VIAL ONE (07:07)
[2020-08-03] MEDS ORDERED: ROCURONIUM BROMIDE 10 MG/ML 5 ML VIAL IV ONE (07:07)
--- NOTE | 2020-08-03 07:27 | Gastrointestinal Consultation ---
Date of Consultation August 03, 2020 Assessment & Plan (1) Epigastric abdominal pain: (2) Elevated LFTs: (3) Choledocholithiasis: ERCP today to further evaluate the MRCP findings. Patient was explained in detail regarding risks, benefits, limitations and alternatives of the above endoscopic procedure. Risks of intravenous sedation used for procedure were also explained. Risks include, but not limited to perforation, bleeding, infection, respiratory distress, cardiac arrest and . Patient is also aware about the possibility of missed lesion. Patient's questions were answered. The patient verbalized understanding the information and agreed to undergo the procedure. History of Present Illness Attending Physician: Melba Berkowitz MD 54 years old male patient presented to the hospital with epigastric abdominal pain, sharp, radiates to his back, constant, associated with nausea but no vomiting. No diarrhea or constipation. No fever. Reports alcohol use. Denies fever or chills. Imaging showed findings of acute cholecystitis but no clear stones. MRCP showed ?choledocholithiasis Vs stricture. Labs showed elevated LFTs, ALT>AST and obstructive jaundice. Allergies Allergy/AdvReac Type Severity Reaction Status Date / Time No Known Allergies Allergy Unverified 08/02/20 14:15 Home Medications Medication Instructions Recorded Confirmed Type atorvastatin 40 mg PO HS 08/02/20 08/02/20 History loratadine 10 mg PO DAILY PRN 08/02/20 08/02/20 History milk thistle 0 mg PO DAILY 08/02/20 08/02/20 History multivitamin 1 tab PO DAILY 08/02/20 08/02/20 History selenium 100 mcg PO DAILY 08/02/20 08/02/20 History turmeric 400 mg PO DAILY 08/02/20 08/02/20 History valacyclovir 500 mg PO UD 08/02/20 08/02/20 History Patient History Medical History Acute arthritis Hyperlipidemia Recurrent cold sores Seasonal allergies Surgical History History of ankle surgery Family History Mother , Age 64 Cirrhosis with alcoholism Social History Smoking Status: Never smoker Second Hand Exposure: No; Do You Dip or Chew Tobacco: No; Tobacco Cessation Education Requested by Patient: No Hx Alcohol Use: Yes Alcohol type: wine and hard liquor Alcohol type Comment: 2- 3 drinks daily Alcohol Intake Frequency: 4 or More x per/Week Hx Substance Use: No Preferred Language: Senegalese Communication Ability: Effective Computer Bookkeeper Required: No Beliefs That Will Affect Care: None marital status: Current Living Situation: Spouse Other Information That Helps Us Care for You: No Feels Safe at Home: Yes Assistive Devices: Glasses Review of Systems Constitutional: no fever, no chills, no fatigue and no weight loss Eyes: no eye pain and no worsening vision Ear, Nose, Mouth, Throat: no tinnitus, no dizziness, no nasal discharge and no epistaxis Respiratory: no cough, no dyspnea, no dyspnea on exertion and no wheezing Cardiovascular: no chest pain, no orthopnea, no palpitations and no edema Gastrointestinal: as per Subjective / HPI Musculoskeletal: no stiffness and no myalgia Neurologic: no localized weakness, no paralysis, no tremor(s) and no headache(s) Endocrine: no polydipsia and no polyuria Hematologic / Lymphatic: no easy bleeding and no night sweats Physical Exam Constitutional: + well hydrated, cooperative and comfortable Eyes: PERRL, conjunctivae normal, anicteric sclerae ENMT: external ear and nose normal, oropharynx normal Neck: normal visual inspection and trachea midline Respiratory: normal respiratory effort, lungs clear to auscultation Auscultation: no wheezes Cardiovascular: RRR, no murmur, no edema Gastrointestinal (Abdomen): normal bowel sounds, soft, nontender, no hepatosplenomegaly Musculoskeletal: no cyanosis or clubbing, extremities motor strength 5/5 Skin: no rashes, warm and dry Neurologic: awake; no focal motor deficits Motor/Sensory: no tremor Results & Data ([facility]) Vital Signs (Past 12 Hours) Vital Signs Temp Pulse Resp BP Pulse Ox 08/02/20 23:20 36.8 C 49 L 16 142/84 H 97 Laboratory Results Laboratory Results - last 24 hr 08/02/20 08/02/20 08/02/20 11:20 11:30 11:30 WBC 6.71 RBC 4.21 L Hgb 14.7 Hct 42.9 MCV 101.9 H MCH 34.9 H MCHC 34.3 RDW Std Deviation 48.5 H RDW Coeff of Chris 13.0 Plt Count 249 MPV 9.6 Immature Gran % (Auto) 0.1 Neut % (Auto) 81.1 Lymph % (Auto) 8.8 [place] % (Auto) 9.2 Eos % (Auto) 0.7 Baso % (Auto) 0.1 Neut # (Auto) 5.43 Lymph # (Auto) 0.59 L [place] # (Auto) 0.62 H Eos # (Auto) 0.05 Baso # (Auto) 0.01 Immature Gran # (Auto) 0.01 Sodium 139 Potassium 3.7 Chloride 103 Carbon Dioxide 31 Anion Gap 5.0 BUN 15 Creatinine 1.07 Est Cr Clr Drug Dosing 85.6 Est GFR ( Amer) 90.1 Est GFR (Non-Af Amer) 77.7 BUN/Creatinine Ratio 13.7 Glucose 151 H Calcium 9.8 Total Bilirubin 2.7 H AST 496 H ALT 520 H Alkaline Phosphatase 308 H Troponin I Total Protein 7.3 Albumin 3.7 Globulin 3.6 Albumin/Globulin Ratio 1.0 Lipase 75 Urine Color Dark Yellow Urine Appearance Clear Urine pH 6.5 Ur Specific [place] 1.018 Urine Protein Negative Urine Glucose (UA) Negative Urine Ketones Negative Urine Blood Negative Urine Nitrite Negative Urine Bilirubin Negative Urine Urobilinogen Positive H Ur Leukocyte Esterase Negative COVID-19 Eval Order SARS-CoV-2 (PCR) Influenza Type A (PCR) Influenza Type B (PCR) RSV (RT-PCR) 08/02/20 08/02/20 08/02/20 11:30 16:22 16:22 WBC RBC Hgb Hct MCV MCH MCHC RDW Std Deviation RDW Coeff of Chris Plt Count MPV Immature Gran % (Auto) Neut % (Auto) Lymph % (Auto) [place] % (Auto) Eos % (Auto) Baso % (Auto) Neut # (Auto) Lymph # (Auto) [place] # (Auto) Eos # (Auto) Baso # (Auto) Immature Gran # (Auto) Sodium Potassium Chloride Carbon Dioxide Anion Gap BUN Creatinine Est Cr Clr Drug Dosing Est GFR ( Amer) Est GFR (Non-Af Amer) BUN/Creatinine Ratio Glucose Calcium Total Bilirubin AST ALT Alkaline Phosphatase Troponin I < 0.015 Total Protein Albumin Globulin Albumin/Globulin Ratio Lipase Urine Color Urine Appearance Urine pH Ur Specific [place] Urine Protein Urine Glucose (UA) Urine Ketones Urine Blood Urine Nitrite Urine Bilirubin Urine Urobilinogen Ur Leukocyte Esterase COVID-19 Eval Order CovFluRsv at [facility] SARS-CoV-2 (PCR) NEGATIVE Influenza Type A (PCR) Negative Influenza Type B (PCR) Negative RSV (RT-PCR) Negative
--- NOTE | 2020-08-03 07:27 | Anesthesiology Consultation ---
Date of Service August 03, 2020 Assessment & Plan Chart Review Chart Review: Acceptable Risk for Surgery Consults Requested none ASA ASA2 Proposed Anesthesia Anesthesia Type: General Risk / Benefits Reviewed With: PT / POA / Parent / Guardian, Accepts Plan and Informed Consent Obtained History Surgery Operation Date: 08/03/20 07:30 Proposed Procedures p Endoscopic Retrograde Cholangiopancreato - Asuncion Menendez MD Height/Weight Height: 6 ft Weight: 87.5 kg Allergies Allergy/AdvReac Type Severity Reaction Status Date / Time No Known Allergies Allergy Unverified 08/02/20 14:15 Medications Home Medications Medication Instructions Recorded Confirmed Last Taken atorvastatin 40 mg PO HS 08/02/20 08/02/20 08/01/20 loratadine 10 mg PO DAILY PRN 08/02/20 08/02/20 08/02/20 milk thistle 0 mg PO DAILY 08/02/20 08/02/20 08/02/20 multivitamin 1 tab PO DAILY 08/02/20 08/02/20 08/02/20 selenium 100 mcg PO DAILY 08/02/20 08/02/20 08/02/20 turmeric 400 mg PO DAILY 08/02/20 08/02/20 08/02/20 valacyclovir 500 mg PO UD 08/02/20 08/02/20 07/31/20 Active Medications Generic Name Dose Route Start Last Admin Trade Name Freq PRN Reason Stop Dose Admin Piperacillin Sod/Tazobactam 115 mls @ 28.75 mls/hr 08/02/20 21:00 08/03/20 06:00 Sod 3.375 gm/ Dextrose IV 08/12/20 20:59 28.8 mls/hr Q8H JAY Administration Protocol Lactated Ringer's 1,000 mls @ 100 mls/hr 08/02/20 19:19 08/03/20 06:01 Lr IV 09/01/20 19:18 100 mls/hr .Q10H JAY Administration Past Medical History Medical History Acute arthritis Hyperlipidemia Recurrent cold sores Seasonal allergies Exercise / Class Metabolic Activity II 4-5 Yardwork/Stairs/Walk up hill Past Family History Family History Mother , Age 64 Cirrhosis with alcoholism Past Surgical History Surgical History History of ankle surgery Past Anesthesia History No Hx of Anesthesia Complications and No Family Hx of Anesthesia Complications History of PONV No Hx of PONV and No Hx of Motion Sickness Social History Smoking Status: Never smoker Do You Dip or Chew Tobacco: No Hx Alcohol Use: Yes Alcohol type: wine and hard liquor alcohol intake frequency: 0-2 drinks per day Hx Substance Use: No Physical Exam Vital Signs Last Vital Signs Temp 98.2 F 08/02/20 23:20 Pulse 49 L 08/02/20 23:20 Resp 16 08/02/20 23:20 BP 142/84 H 08/02/20 23:20 Pulse Ox 97 08/02/20 23:20 ENMT Mouth: no dentition abnormality Thyromental Distance: > or= 3.5 Finger Breadths Mallampati Class: II Neck normal visual inspection Respiratory normal respiratory effort Auscultation: lungs clear to auscultation bilaterally Cardiovascular Rate/Rhythm: regular rate and regular rhythm Testing Laboratory Results 08/02/20 11:30 08/02/20 11:30 Urine Color Dark Yellow 08/02/20 11:20 Urine Appearance Clear (Clear) 08/02/20 11:20 Urine pH 6.5 (4.5-7.5) 08/02/20 11:20 Ur Specific [place] 1.018 (1.000-1.030) 08/02/20 11:20 Urine Protein Negative (Negative) 08/02/20 11:20 Urine Glucose (UA) Negative (Negative) 08/02/20 11:20 Urine Ketones Negative (Negative) 08/02/20 11:20 Urine Nitrite Negative (Negative) 08/02/20 11:20 Ur Leukocyte Esterase Negative (Negative) 08/02/20 11:20
[2020-08-03] MEDS ORDERED: ONDANSETRON INJ 2 MG/ML 2 ML VIAL IV PRN (07:29)
[2020-08-03] MEDS ORDERED: ePHEDrine sulfate 50 MG/ML AMP IV PRN (07:29)
[2020-08-03] MEDS ORDERED: ATROPINE SULFATE 0.1 MG/ML 10ML SYR IV PRN (07:29)
[2020-08-03] MEDS ORDERED: fentaNYL citrate 100 MCG/2 ML VIAL IV PRN (07:29)
[2020-08-03] MEDS ORDERED: INDOMETHACIN 50 MG SUPP PR ONE (07:38)
--- NOTE | 2020-08-03 08:58 | Operative Report ---
Post Operative Report Pre & Post Diagnosis Operation Date: 08/03/20 07:30 Pre-Op Diagnosis: Epigastric abdominal pain, Elevated LFTs, Choledocholithiasis Post-Op Diagnosis: Epigastric abdominal pain, Elevated LFTs, Choledocholithiasis I identified the patient and participated in the time-out.: Yes Procedure Operation Date: 08/03/20 07:30 Actual Procedures p Endoscopic Retrograde Cholangiopancreatography(Not Applicable) - Asuncion Menendez MD Surgeon Asuncion Menendez MD Proofsheet Corrector None Estimated Blood Loss 0 Findings See Below (Biliary strictures suggestive of PSC) Specimens Biliary cytology brush Description of Procedure ERCP I attest to the content of the Intraoperative Record and any orders documented therein. Any exceptions are noted below.
--- NOTE | 2020-08-03 09:17 | Anesthesiology Progress Note ---
Date of Service August 03, 2020 Anesthesia Post Procedure Vital Signs Vital Signs: Temp Pulse Pulse Resp BP BP Pulse Ox 08/02/20 23:20 98.2 F 49 L 16 142/84 H 97 08/02/20 19:19 98.2 F 48 L 16 149/95 H 98 08/02/20 18:31 54 L 17 141/92 H 08/02/20 18:30 54 L 23 08/02/20 18:01 45 L 13 08/02/20 18:00 46 L 17 136/89 08/02/20 17:31 44 L 17 08/02/20 17:30 47 L 24 138/89 08/02/20 17:02 45 L 20 08/02/20 17:01 53 L 21 136/96 08/02/20 17:00 46 L 27 H 08/02/20 16:31 53 L 19 130/89 08/02/20 16:30 49 L 19 08/02/20 16:22 48 L 13 08/02/20 16:21 46 L 15 129/92 08/02/20 14:32 50 L 17 97 08/02/20 14:31 51 L 17 136/92 99 08/02/20 14:30 63 22 98 08/02/20 14:01 54 L 16 96 08/02/20 14:00 51 L 22 141/93 H 96 08/02/20 13:31 52 L 15 93 08/02/20 13:30 51 L 16 129/88 94 08/02/20 13:01 46 L 10 L 99 08/02/20 13:00 44 L 10 L 170/96 H 100 08/02/20 12:31 46 L 20 169/109 H 94 08/02/20 12:30 46 L 17 100 08/02/20 12:25 54 L 14 178/102 H 99 08/02/20 12:24 54 L 27 H 175/108 H 100 08/02/20 12:00 52 L 14 100 08/02/20 11:38 54 L 16 92 08/02/20 11:00 97.5 F L 57 L 16 154/91 H 99 Pain Intensity Abdomen: Pain Intensity: 7 Transfer of Care Handoff Completed per policy Notes Mental Status: alert / awake / arousable and participated in evaluation Patient Amnestic to Procedure: Yes Nausea / Vomiting: adequately controlled Pain: adequately controlled Airway Patency, RR, SpO2: stable & adequate BP & HR: stable & adequate Hydration State: stable & adequate Anesthetic Complications: no major complications apparent and Pt Satisfied with anesthetic care
--- NOTE | 2020-08-03 09:24 | GI REPORT ---
Patient Name: Prem Anna Procedure Date: 08/03/2020 7:34 AM Date of : 1965 Admit Type: Inpatient Age: 54 Gender: Male Attending MD: Asuncion Menendez MD Procedure: ERCP Providers: Asuncion Menendez MD Referring MD: Melba Berkowitz Md Indications: Abnormal MRCP, Jaundice Medicines: General Anesthesia Complications: No immediate complications. Estimated Blood Loss: Estimated blood loss: none. Procedure: Pre-Anesthesia Assessment: - Prior to the procedure, a History and Physical was performed, and patient medications, allergies and sensitivities were reviewed. The patient's tolerance of previous anesthesia was reviewed. - The risks and benefits of the procedure and the sedation options and risks were discussed with the patient. All questions were answered and informed consent was obtained. - Patient identification and proposed procedure were verified prior to the procedure by the physician and the nurse. The procedure was verified in the procedure room. - Pre-procedure physical examination revealed no contraindications to sedation. After obtaining informed consent, the scope was passed under direct vision. Throughout the procedure, the patient's blood pressure, pulse, and oxygen saturations were monitored continuously. The Scope was introduced through the mouth, and advanced to the duodenum and used to inject contrast into the bile duct. The ERCP was accomplished without difficulty. The patient tolerated the procedure well. Findings: The director of consumer marketing film was normal. The esophagus was successfully intubated under direct vision. The scope was advanced to a normal major papilla in the descending duodenum without detailed examination of the pharynx, larynx and associated structures, and upper GI tract. The upper GI tract was grossly normal. The ventral pancreatic duct was inadvertently cannulated. The guidewire was kept in place to utilize a double wire technique for biliary cannulation. A 0.025 inch x 270 cm angled Visiglide wire was passed into the biliary tree. The Fusion OMNI sphincterotome was passed over the guidewire and the bile duct was then deeply cannulated. Contrast was injected. I personally interpreted the bile duct images. Ductal flow of contrast was adequate. Image quality was adequate. Contrast extended to the main bile duct. Opacification of the entire biliary tree was successful. The maximum diameter of the ducts was 6 mm. The lower third of the main bile duct and the left main hepatic duct contained dominant strictures. The entire left and right intrahepatic branches contained multiple stenoses with beading pattern. Biliary sphincterotomy was made with a monofilament traction (standard) sphincterotome using ERBE electrocautery. There was no post-sphincterotomy bleeding. Cells for cytology were obtained by brushing in the lower third of the main bile duct. The lower third of the main bile duct was successfully dilated with a 4 mm balloon and a 6 mm balloon dilator. The left main duct could not be cannulated despite using an angled Visiglide 2 guidewire. The biliary tree was swept with a 12 mm balloon starting at the bifurcation. A few small black stones were removed. No stones remained. The biliary tree was irrigated with saline and contrast was flushed out of the ducts. Indomethacin 100 mg was given via suppository to decrease the risk of post-ERCP pancreatitis (PEP). No stents were placed. 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 Cells for cytology obtained by brushing. The stricture was dilated with a 6 mm dilation balloon. - Choledocholithiasis was found. Complete removal was accomplished by biliary sphincterotomy and balloon extraction. Recommendation: - [facility] care. - Await cytology results. - Repeat ERCP in 2 months to treat the left main duct stricture, may consider a spyglass exam or EUS based on the results of the cytology from today. - Perform a colonoscopy electively as OP. - Proceed with cholecystectomy as the stricture is likely involving the cystic duct take off which explains his cholecystitis. - Complete a 10 days course of PO ABx. - Monitor LFTs. Asuncion Menendez MD 08/03/2020 9:24:23 AM This report has been signed electronically. Note Initiated On: 08/03/2020 7:34 AM Number of Addenda: 0 I attest to the content of the Intraoperative Record and orders documented therein, exceptions below {[id number]}
--- NOTE | 2020-08-03 09:37 | Fluoroscopy Report ---
[place] ERCP biliary ductal CLINICAL HISTORY: ERCP TO BE DONE COMPARISON STUDY: CT of the abdomen and pelvis, MRCP and right upper quadrant ultrasound August 02, 2020 . FLUOROSCOPY TIME: 4 minutes and 5 seconds. FLUOROSCOPIC IMAGES: 19 FINDINGS: Fluoroscopy was provided during ERCP. There is cannulation of the common bile duct. Multipl e filling defects within the common bile duct reflect choledocholithiasis. Balloon sweep through the common bile duct was performed. Note is made of multifocal irregularity of the intra and extra hepati c bile ducts with a beaded appearance. IMPRESSION: 1. Fluoroscopy provided during ERCP. 2. Choledocholithiasis. In addition, multifocal irregularity of the intra and extrahepatic bile ducts suggestive of strictures with associated dilatation of intrahepatic bile ducts. The findings raise t he possibility of primary sclerosing cholangitis. ACT 112: Negative or not required by law. Electronically signed by: Ladarius Donohue M.D. 08/03/2020 9:35 AM
[2020-08-03 10:27] LABS: Basophils # (auto) 0.01 K/uL (0-0.2); Basophils % (auto) 0.2 %; Eosinophils # (auto) 0.04 K/uL (0-0.5); Eosinophils % (auto) 0.9 %; Hematocrit (blood only) 43.2 % (42-52); Hemoglobin 14.7 g/dL (14.0-18.0); Immature Granulocytes # (auto) 0.01 K/uL (0.00-0.02); Immature Granulocytes % (auto) 0.2 %; Lymphocytes # (auto) 0.44 K/uL (1.2-3.4); Lymphocytes % (auto) 9.5 %; Mean Corpuscular Hemoglobin 35.8 pg (25-34); Mean Corpuscular Volume 105.1 fL (80-100); Mean Platelet Volume 9.6 fL (7.4-10.4); Monocytes # (auto) 0.21 K/uL (0.11-0.59); Monocytes % (auto) 4.5 %; Neutrophils # (auto) 3.93 K/uL (1.4-6.5); Neutrophils % (auto) 84.7 %; Platelet Count 243 K/uL (130-400); RDW Coefficient of Variation 12.9 % (11.5-14.5); RDW Standard Deviation 49.6 fL (36.4-46.3); Red Blood Count 4.11 M/uL (4.7-6.1); White Blood Count 4.64 K/uL (4.8-10.8)
[2020-08-03 11:08] LABS: Albumin Level 3.3 gm/dl (3.4-5.0); BUN Creatinine Ratio 9.8 (10-20); Bilirubin Direct 4.8 mg/dl (0-0.2); Creatinine Clr Calc Pharmacy 81.8 ml/min; Est GFR (African American) 85.3; Est GFR (Non-African American) 73.6; Magnesium 2.1 mg/dl (1.8-2.4); Potassium 4.6 mmol/L (3.5-5.1)
[2020-08-03 11:19] LABS: Bilirubin,Total 6.4 mg/dl (0.2-1); Total Protein 6.6 gm/dl (6.4-8.2)
--- NOTE | 2020-08-03 12:11 | Communication Note ---
Date of Service: August 03, 2020 I spoke to the patient's and updated her about the findings and plan of care.
--- NOTE | 2020-08-03 12:24 | Hospitalist Progress Note ---
Date of Service August 03, 2020 Assessment & Plan (1) Acute cholecystitis: Presents with acute right upper quadrant pain, elevated LFTs in obstructive pattern, and borderline dilated CBD and dilated intrahepatic biliary ducts With evidence of acute cholecystitis both on CT abdomen/pelvis and RUQ US. No evidence of cholangitis on admission -Admitted to medical/surgical floor for further evaluation and treatment -MRCP suspicious for filling defects in the CBD, and confirms acute cholecystitis -Now status post ERCP-shows multiple biliary tree strictures, main duct dilated and 2 small black stones were removed GI suspects possible PSC, also with cystic duct stricture likely cause of acute cholecystitis -Continue IV Zosyn and convert to p.o. antibiotics after cholecystectomy for total of 10 days-we will use Cipro and Flagyl -Consult surgery to evaluate for cholecystectomy-tentatively planned for Wednesday -LFTs significantly up today with bilirubin up to 6, mostly direct-expect this will trend down tomorrow now that obstruction has improved He remains afebrile -Follow LFTs, CBC, BMP -Pain control with IV Dilaudid as needed-no longer having pain -Clear liquids diet today and n.p.o. after midnight -Continue maintenance fluids with LR at 100 mL's per hour He is typically very active, walks many miles per week and can easily go up and down flight of stairs without any chest pain or shortness of breath. He is at average risk for perioperative cardiovascular complications and should proceed with surgery if needed (2) Biliary stricture: As above, GI suspects PSC Will need close outpatient follow-up with GI and PCP once he is discharged as he lives in [place] CD burned for him which has all of his imaging studies including the fluoroscopy from the ERCP on it Need to rule out secondary causes of cholangitis as well, may need liver biopsy -Also recommended he discontinue all outpatient supplements at this time including milk thistle (3) Choledocholithiasis: As above (4) Elevated LFTs: As above, in obstructive pattern Follow LFTs in the morning (5) Abdominal pain: As above, IV Dilaudid as needed Now resolved (6) Hyperlipidemia: Continue to hold home statin (7) DVT prophylaxis: SCDs only for now because of need for procedure tomorrow Disposition-continued stay medical/surgical floor Full code Admission and Anticipated Discharge Date Admission Date: August 02, 2020 Subjective Patient had ERCP this morning which showed multiple strictures in the biliary tract which was dilated in the main duct and also a couple small stones were swept out. GI physician called me and stated that the appearance of what he saw is consistent with PSC. The patient had concerns about this and we discussed the possibility of this diagnosis and the need for outpatient GI follow-up. He is agreeable to staying for cholecystectomy. He denies any abdominal pain, no nausea. No blood in the stool. He has had a colonoscopy in the past which she was told was normal. He denies any chest pains or shortness of breath. Review of Systems Review of Systems: All systems reviewed & are unremarkable except as noted in HPI & below Physical Exam Constitutional: WD/WN, vitals as above Eyes: + scleral abnormality (Scleral icterus) Neck: trachea midline, no thyromegaly Respiratory: normal respiratory effort, lungs clear to auscultation Cardiovascular: RRR, no murmur, no edema Chest (Breasts): Chest: normal inspection of chest Gastrointestinal (Abdomen): Inspection/Auscultation: abdomen normal to ins pection and normal bowel sounds; abdomen not distended Musculoskeletal: Extremities: extremities normal to inspection; no cyanosis and no clubbing Skin: no rashes, warm and dry + jaundice Neurologic: moves all extremities and awake; no focal motor deficits Psychiatric: A+Ox3, euthymic affect Lymphatic: no lymphedema Results & Data Results & Data ([facility]) Vital Signs (Past 12 Hours) Vital Signs Temp Pulse Pulse Resp BP Pulse Ox 08/03/20 10:55 36.8 C 46 L 16 138/90 94 08/03/20 10:29 36.8 C 46 L 16 140/90 94 08/03/20 10:00 36.7 C 41 L 16 151/90 H 98 08/03/20 09:41 43 L 16 151/94 H 99 08/03/20 09:32 43 L 16 145/96 H 94 08/03/20 09:25 43 L 16 152/94 H 96 08/03/20 09:15 42 L 14 154/94 H 100 08/03/20 09:06 36.3 C L 68 16 129/94 98 Laboratory Results 08/03/20 08/03/20 08/03/20 Range/Units 10:01 10:01 10:01 WBC 4.64 L (4.8-10.8) K/uL RBC 4.11 L (4.7-6.1) M/uL Hgb 14.7 (14.0-18.0) g/dL Hct 43.2 (42-52) % MCV 105.1 H (80-100) fL MCH 35.8 H (25-34) pg MCHC 34.0 (32-36) g/dL RDW Std Deviation 49.6 H (36.4-46.3) fL RDW Coeff of Chris 12.9 (11.5-14.5) % Plt Count 243 (130-400) K/uL MPV 9.6 (7.4-10.4) fL Immature Gran % (Auto) 0.2 % Neut % (Auto) 84.7 % Lymph % (Auto) 9.5 % [place] % (Auto) 4.5 % Eos % (Auto) 0.9 % Baso % (Auto) 0.2 % Neut # (Auto) 3.93 (1.4-6.5) K/uL Lymph # (Auto) 0.44 L (1.2-3.4) K/uL [place] # (Auto) 0.21 (0.11-0.59) K/uL Eos # (Auto) 0.04 (0-0.5) K/uL Baso # (Auto) 0.01 (0-0.2) K/uL Immature Gran # (Auto) 0.01 (0.00-0.02) K/uL Sodium 140 (136-145) mmol/L Potassium 4.6 D (3.5-5.1) mmol/L Chloride 105 (98-107) mmol/L Carbon Dioxide 33 H (21-32) mmol/L Anion Gap 2.0 L (3-11) BUN 11 (7-18) mg/dl Creatinine 1.12 (0.6-1.4) mg/dl Est Cr Clr Drug Dosing 81.8 ml/min Est GFR ( Amer) 85.3 Est GFR (Non-Af Amer) 73.6 BUN/Creatinine Ratio 9.8 L (10-20) Glucose 132 H (70-99) mg/dl Calcium 9.0 (8.5-10.1) mg/dl Magnesium 2.1 (1.8-2.4) mg/dl Total Bilirubin 6.4 H D (0.2-1) mg/dl Direct Bilirubin 4.8 H (0-0.2) mg/dl AST 915 H (15-37) U/L ALT 1025 H (12-78) U/L Alkaline Phosphatase 307 H (45-117) U/L Troponin I (0-0.045) ng/ml Total Protein 6.6 (6.4-8.2) gm/dl Albumin 3.3 L (3.4-5.0) gm/dl Lipase 170 (73-393) U/L COVID-19 Eval Order SARS-CoV-2 (PCR) (Negative) Hepatitis C Ab Screen Pending Influenza Type A (PCR) (Neg) Influenza Type B (PCR) (Neg) RSV (RT-PCR) (Neg) 08/02/20 08/02/20 08/02/20 Range/Units 16:22 16:22 11:30 WBC (4.8-10.8) K/uL RBC (4.7-6.1) M/uL Hgb (14.0-18.0) g/dL Hct (42-52) % MCV (80-100) fL MCH (25-34) pg MCHC (32-36) g/dL RDW Std Deviation (36.4-46.3) fL RDW Coeff of Chris (11.5-14.5) % Plt Count (130-400) K/uL MPV (7.4-10.4) fL Immature Gran % (Auto) % Neut % (Auto) % Lymph % (Auto) % [place] % (Auto) % Eos % (Auto) % Baso % (Auto) % Neut # (Auto) (1.4-6.5) K/uL Lymph # (Auto) (1.2-3.4) K/uL [place] # (Auto) (0.11-0.59) K/uL Eos # (Auto) (0-0.5) K/uL Baso # (Auto) (0-0.2) K/uL Immature Gran # (Auto) (0.00-0.02) K/uL Sodium (136-145) mmol/L Potassium (3.5-5.1) mmol/L Chloride (98-107) mmol/L Carbon Dioxide (21-32) mmol/L Anion Gap (3-11) BUN (7-18) mg/dl Creatinine (0.6-1.4) mg/dl Est Cr Clr Drug Dosing ml/min Est GFR ( Amer) Est GFR (Non-Af Amer) BUN/Creatinine Ratio (10-20) Glucose (70-99) mg/dl Calcium (8.5-10.1) mg/dl Magnesium (1.8-2.4) mg/dl Total Bilirubin (0.2-1) mg/dl Direct Bilirubin (0-0.2) mg/dl AST (15-37) U/L ALT (12-78) U/L Alkaline Phosphatase (45-117) U/L Troponin I < 0.015 (0-0.045) ng/ml Total Protein (6.4-8.2) gm/dl Albumin (3.4-5.0) gm/dl Lipase (73-393) U/L COVID-19 Eval Order CovFluRsv at [facility] SARS-CoV-2 (PCR) NEGATIVE (Negative) Hepatitis C Ab Screen Influenza Type A (PCR) Negative (Neg) Influenza Type B (PCR) Negative (Neg) RSV (RT-PCR) Negative (Neg) PG Care Time/CCT Total # of Minutes Spent Total Time Spent with Patient: Total time spent is greater than 50% in coordination of care (as documented) at patient's floor/unit and/or counseling patient: Coding Level of Care Code 16419 Subseq Hosp Care Lvl 3 Diagnoses Acute cholecystitis K81.0 Biliary stricture K83.1 Choledocholithiasis K80.50 Elevated LFTs R79.89 Abdominal pain R10.9 Hyperlipidemia E78.5 DVT prophylaxis Z29.9
[2020-08-03] MEDS: HYDROmorphone INJ 0.5 MG/0.5 ML SYR IV PRN ×3 (14:21→23:34)
--- NOTE | 2020-08-03 15:51 | Progress Note ---
Date of Service S/P ERCP, pt is still have some epigastric pain, no nausea, no vomiting, no fever, I reviewed ERCP finding, (T) bilirubin 6 today, August 03, 2020 Assessment & Plan (1) Epigastric abdominal pain: (2) Acute cholecystitis: pt is a 54 year-old male who was admitted to hospital for acute abdominal with acute cholecystitis and abdominal LFTs, IMP: acute cholecystitis, abnormal LFTS, plan, I agree with that hospitalist treatment plan, MRCP, Consult GI for possible ERCP,repeat labs in morning, will F/U for possible laparoscopic cholecystectomy, pt agrees with the plan, I answered all questions, 08/03/2020 3:52PM S/P ERCP, (t)bilirubin 6.4, I recommend to do laparoscopic cholecystectomy possible open or cholangiogram on 08/05/2020, base pt has many years use alcohol history possible early cirrhosis, D/W benefits, risks and alternatives of the surgery, the risks- infection, bleeding, injury CBD, or bowel, biliary leak, pt understood, he agrees with the surgery,he signed consent, I answered all questions, NPO after MN on Wednesday, Admission and Anticipated Discharge Date Admission Date: August 02, 2020 Subjective Patient had ERCP this morning which showed multiple strictures in the biliary tract which was dilated in the main duct and also a couple small stones were swept out. GI physician called me and stated that the appearance of what he saw is consistent with PSC. The patient had concerns about this and we discussed the possibility of this diagnosis and the need for outpatient GI follow-up. He is agreeable to staying for cholecystectomy. He denies any abdominal pain, no nausea. No blood in the stool. He has had a colonoscopy in the past which she was told was normal. He denies any chest pains or shortness of breath. Review of Systems Constitutional: as per Subjective / HPI Eyes: as per Subjective / HPI Ear, Nose, Mouth, Throat: as per Subjective / HPI Respiratory: as per Subjective / HPI Cardiovascular: as per Subjective / HPI Additional Comments: hyperlipidemia Gastrointestinal: as per Subjective / HPI history of alcohol use Genitourinary: + as per Subjective / HPI Musculoskeletal: as per Subjective / HPI Integumentary: as per Subjective / HPI Neurologic: as per Subjective / HPI Psychiatric: as per Subjective / HPI Endocrine: as per Subjective / HPI Hematologic / Lymphatic: as per Subjective / HPI Physical Exam Constitutional: WD/WN, vitals as above well developed and well nourished Eyes: PERRL, conjunctivae normal, anicteric sclerae ENMT: external ear and nose normal, oropharynx normal Neck: trachea midline, no thyromegaly Respiratory: normal respiratory effort, lungs clear to auscultation Cardiovascular: RRR, no murmur, no edema Rate/Rhythm: regular rate and regular rhythm Gastrointestinal (Abdomen): Percussion/Palpation: + abdomen tender and abdomen soft Musculoskeletal: no cyanosis or clubbing, extremities motor strength 5/5 Skin: no rashes, warm and dry Neurologic: awake Psychiatric: Orientation: alert and oriented x 3 Results & Data ([facility]) Vital Signs (Past 12 Hours) Vital Signs Temp Pulse Pulse Resp BP Pulse Ox 08/03/20 13:21 36.6 C 55 L 16 130/79 96 08/03/20 10:55 36.8 C 46 L 16 138/90 94 08/03/20 10:29 36.8 C 46 L 16 140/90 94 08/03/20 10:00 36.7 C 41 L 16 151/90 H 98 08/03/20 09:41 43 L 16 151/94 H 99 08/03/20 09:32 43 L 16 145/96 H 94 08/03/20 09:25 43 L 16 152/94 H 96 08/03/20 09:15 42 L 14 154/94 H 100 08/03/20 09:06 36.3 C L 68 16 129/94 98 Laboratory Results Abnormal lab results 08/03/20 08/03/20 Range/Units 10:01 10:01 WBC 4.64 L (4.8-10.8) K/uL RBC 4.11 L (4.7-6.1) M/uL MCV 105.1 H (80-100) fL MCH 35.8 H (25-34) pg RDW Std Deviation 49.6 H (36.4-46.3) fL Lymph # (Auto) 0.44 L (1.2-3.4) K/uL Carbon Dioxide 33 H (21-32) mmol/L Anion Gap 2.0 L (3-11) BUN/Creatinine Ratio 9.8 L (10-20) Glucose 132 H (70-99) mg/dl Total Bilirubin 6.4 H D (0.2-1) mg/dl Direct Bilirubin 4.8 H (0-0.2) mg/dl AST 915 H (15-37) U/L ALT 1025 H (12-78) U/L Alkaline Phosphatase 307 H (45-117) U/L Albumin 3.3 L (3.4-5.0) gm/dl Diagnostic Findings ERCP:Impression: - Cholangiogram findings suggestive of PSC with dominant stricture at lower third of the main bile duct. Cells for cytology obtained by brushing. The stricture was dilated with a 6 mm dilation balloon. - Choledocholithiasis was found. Complete removal was accomplished by biliary sphincterotomy and balloon extraction. Recommendation: - Return patient to [facility] for ongoing care. - Await cytology results. - Repeat ERCP in 2 months to treat the left main duct stricture, may consider a spyglass exam or EUS based on the results of the cytology from today. - Perform a colonoscopy electively as OP. - Proceed with cholecystectomy as the stricture is likely involving the cystic duct take off which explains his cholecystitis. - Complete a 10 days course of PO ABx. - Monitor LFTs.
[2020-08-03] MEDS ORDERED: HYDROmorphone INJ 0.5 MG/0.5 ML SYR IV STA (16:20)
[2020-08-03] MEDS ORDERED: HYDROmorphone INJ 1 MG/ML SYRINGE IV STA (20:16)
--- NOTE | 2020-08-03 20:24 | Communication Note ---
Date of Service: August 03, 2020 Messaged by nursing to see patient at bedside. Complaining of 12/10 abdominal pain uncontrolled with 0.5 mg IV dilaudid Q4. Says previously pain medication was helping pain but has not improved after last dose given about half an hour ago. Describing pain as sharp epigastric/RUQ, radiating to back, expanding across more abdominal space than previously. No pain after eating breakfast or lunch earlier today. Unable to find comfortable position, all movement causes pain,unable to deeply inspire due to pain. PE: Abd: taught due to pain, no bowel sounds, grossly TTP, +rebound, - guarding, pain improved with laying on back and bending knees to decrease abdominal pressure Card: RRR, no MRG. EKG at bedside sinus mireya w/o ST segment changes, minimal change from previous. Nursing communicated with surgeon Dr. Franklin who said it may be post-ERCP complication and recommended CT be ordered by hospitalist. Stat CT A/P with IV con ordered, 1 mg IV dilaudid for pain control.
[2020-08-03] MEDS ORDERED: OPTIRAY 300 100mL IV ONE (20:32)
[2020-08-03] MEDS ORDERED: LACTATED RINGER'S 1,000 ML IV ONE (20:51)
[2020-08-03 20:56] LABS: Eosinophils # (auto) 0.01 K/uL (0-0.5); Eosinophils % (auto) 0.1 %; Hematocrit (blood only) 44.2 % (42-52); Hemoglobin 15.2 g/dL (14.0-18.0); Immature Granulocytes # (auto) 0.02 K/uL (0.00-0.02); Immature Granulocytes % (auto) 0.2 %; Lymphocytes # (auto) 0.59 K/uL (1.2-3.4); Lymphocytes % (auto) 7.3 %; Mean Corpuscular Hemoglobin 35.1 pg (25-34); Mean Corpuscular Volume 102.1 fL (80-100); Mean Platelet Volume 9.5 fL (7.4-10.4); Monocytes # (auto) 0.59 K/uL (0.11-0.59); Monocytes % (auto) 7.3 %; Neutrophils # (auto) 6.82 K/uL (1.4-6.5); Neutrophils % (auto) 85.1 %; Platelet Count 231 K/uL (130-400); RDW Coefficient of Variation 12.7 % (11.5-14.5); RDW Standard Deviation 47.6 fL (36.4-46.3); Red Blood Count 4.33 M/uL (4.7-6.1); White Blood Count 8.03 K/uL (4.8-10.8)
[2020-08-03 21:03] LABS: Mean Corpuscular Hgb Conc 34.4 g/dL (32-36)
[2020-08-03] MEDS: HYDROmorphone INJ 1 MG/ML SYRINGE IV SCH (21:48)
[2020-08-03] MEDS: ONDANSETRON INJ 2 MG/ML 2 ML VIAL IV PRN (22:40)
[2020-08-04] MEDS: HYDROmorphone INJ 1 MG/ML SYRINGE IV SCH ×5 (00:14→08:03)
[2020-08-04] MEDS: LACTATED RINGER'S 1,000 ML IV SCH ×4 (03:33→21:33)
[2020-08-04] MEDS: PIPERACILLIN/TAZOBACTAM 3.375 GM in DEXTROSE 5% 100 ML IV SCH ×3 (05:07→21:33)
[2020-08-04] MEDS: HYDROmorphone INJ 0.5 MG/0.5 ML SYR IV PRN (05:12)
[2020-08-04 06:35] LABS: Basophils # (auto) 0.01 K/uL (0-0.2); Basophils % (auto) 0.1 %; Hematocrit (blood only) 45.1 % (42-52); Hemoglobin 15.3 g/dL (14.0-18.0); Immature Granulocytes # (auto) 0.01 K/uL (0.00-0.02); Immature Granulocytes % (auto) 0.1 %; Lymphocytes # (auto) 0.39 K/uL (1.2-3.4); Mean Corpuscular Hemoglobin 35.7 pg (25-34); Mean Corpuscular Hgb Conc 33.9 g/dL (32-36); Mean Corpuscular Volume 105.4 fL (80-100); Mean Platelet Volume 9.5 fL (7.4-10.4); Monocytes # (auto) 0.68 K/uL (0.11-0.59); Monocytes % (auto) 8.8 %; Neutrophils # (auto) 6.65 K/uL (1.4-6.5); Platelet Count 231 K/uL (130-400); RDW Coefficient of Variation 12.9 % (11.5-14.5); RDW Standard Deviation 50.1 fL (36.4-46.3); Red Blood Count 4.28 M/uL (4.7-6.1); White Blood Count 7.74 K/uL (4.8-10.8)
--- NOTE | 2020-08-04 06:59 | Progress Note ---
Date of Service pt had epigastric pain yesterday, pt had CT scan -finding- acute pancreatitis, lipase 10,000. now pt feels better, less abdominal pain, no nausea, no vomiting, no fever, August 04, 2020 Assessment & Plan (1) Epigastric abdominal pain: (2) Acute cholecystitis: pt is a 54 year-old male who was admitted to hospital for acute abdominal with acute cholecystitis and abdominal LFTs, IMP: acute cholecystitis, abnormal LFTS, plan, I agree with that hospitalist treatment plan, MRCP, Consult GI for possible ERCP,repeat labs in morning, will F/U for possible laparoscopic cholecystectomy, pt agrees with the plan, I answered all questions, 08/03/2020 3:52PM S/P ERCP, (t)bilirubin 6.4, I recommend to do laparoscopic cholecystectomy possible open or cholangiogram on 08/05/2020, base pt has many years use alcohol history possible early cirrhosis, D/W benefits, risks and alternatives of the surgery, the risks- infection, bleeding, injury CBD, or bowel, biliary leak, pt understood, he agrees with the surgery,he signed consent, I answered all questions, NPO after MN on 08/04/2020 7:00AM acute pancreatitis, conservative treatment, NPO, iv fluid, control pain, cancer cholecystectomy surgery now, wait until lipase close normal, may resume surgery other option transfer pt to his [place] hospital for further treatment, repeat labs in morning, will F/U Admission and Anticipated Discharge Date Admission Date: August 02, 2020 Subjective Patient had ERCP this morning which showed multiple strictures in the biliary tract which was dilated in the main duct and also a couple small stones were swept out. GI physician called me and stated that the appearance of what he saw is consistent with PSC. The patient had concerns about this and we discussed the possibility of this diagnosis and the need for outpatient GI follow-up. He is agreeable to staying for cholecystectomy. He denies any abdominal pain, no nausea. No blood in the stool. He has had a colonoscopy in the past which she was told was normal. He denies any chest pains or shortness of breath. Review of Systems Constitutional: as per Subjective / HPI Eyes: as per Subjective / HPI Ear, Nose, Mouth, Throat: as per Subjective / HPI Respiratory: as per Subjective / HPI Cardiovascular: as per Subjective / HPI Additional Comments: hyperlipidemia Gastrointestinal: as per Subjective / HPI history of alcohol use Genitourinary: + as per Subjective / HPI Musculoskeletal: as per Subjective / HPI Integumentary: as per Subjective / HPI Neurologic: as per Subjective / HPI Psychiatric: as per Subjective / HPI Endocrine: as per Subjective / HPI Hematologic / Lymphatic: as per Subjective / HPI Physical Exam Constitutional: WD/WN, vitals as above well developed and well nourished Eyes: PERRL, conjunctivae normal, anicteric sclerae ENMT: external ear and nose normal, oropharynx normal Neck: trachea midline, no thyromegaly Respiratory: normal respiratory effort, lungs clear to auscultation Cardiovascular: RRR, no murmur, no edema Rate/Rhythm: regular rate and regular rhythm Gastrointestinal (Abdomen): Percussion/Palpation: + abdomen tender and abdomen soft mild tenderness at epigastric area, no rebound pain, no distend Musculoskeletal: no cyanosis or clubbing, extremities motor strength 5/5 Skin: no rashes, warm and dry Neurologic: awake Psychiatric: Orientation: alert and oriented x 3 Results & Data ([facility]) Vital Signs (Past 12 Hours) Vital Signs Temp Pulse Resp BP Pulse Ox 08/04/20 00:10 37.1 C 96 H 18 103/65 92 08/03/20 19:31 36.7 C 59 L 22 157/102 H 94 Laboratory Results Abnormal lab results 08/03/20 08/03/20 08/03/20 Range/Units 10:01 10:01 20:40 WBC 4.64 L (4.8-10.8) K/uL RBC 4.11 L (4.7-6.1) M/uL MCV 105.1 H (80-100) fL MCH 35.8 H (25-34) pg RDW Std Deviation 49.6 H (36.4-46.3) fL Neut # (Auto) (1.4-6.5) K/uL Lymph # (Auto) 0.44 L (1.2-3.4) K/uL [place] # (Auto) (0.11-0.59) K/uL Carbon Dioxide 33 H (21-32) mmol/L Anion Gap 2.0 L (3-11) BUN/Creatinine Ratio 9.8 L (10-20) Glucose 132 H (70-99) mg/dl Total Bilirubin 6.4 H D (0.2-1) mg/dl Direct Bilirubin 4.8 H (0-0.2) mg/dl AST 915 H (15-37) U/L ALT 1025 H (12-78) U/L Alkaline Phosphatase 307 H (45-117) U/L Lactate Dehydrogenase 276 H (87-241) U/L Albumin 3.3 L (3.4-5.0) gm/dl Lipase (73-393) U/L 08/03/20 08/03/20 08/04/20 Range/Units 20:43 20:43 06:25 WBC (4.8-10.8) K/uL RBC 4.33 L 4.28 L (4.7-6.1) M/uL MCV 102.1 H 105.4 H (80-100) fL MCH 35.1 H 35.7 H (25-34) pg RDW Std Deviation 47.6 H 50.1 H (36.4-46.3) fL Neut # (Auto) 6.82 H 6.65 H (1.4-6.5) K/uL Lymph # (Auto) 0.59 L 0.39 L (1.2-3.4) K/uL [place] # (Auto) 0.68 H (0.11-0.59) K/uL Carbon Dioxide (21-32) mmol/L Anion Gap (3-11) BUN/Creatinine Ratio (10-20) Glucose (70-99) mg/dl Total Bilirubin (0.2-1) mg/dl Direct Bilirubin (0-0.2) mg/dl AST (15-37) U/L ALT (12-78) U/L Alkaline Phosphatase (45-117) U/L Lactate Dehydrogenase (87-241) U/L Albumin (3.4-5.0) gm/dl Lipase 48443 H (73-393) U/L Diagnostic Findings CT scan 08/03/2020, acute pancreatitis,
[2020-08-04 07:04] LABS: BUN Creatinine Ratio 13.5 (10-20); Bilirubin Direct 3.1 mg/dl (0-0.2); Calcium 9.1 mg/dl (8.5-10.1); Creatinine Clr Calc Pharmacy 105.3 ml/min; Est GFR (African American) 112.6; Est GFR (Non-African American) 97.2; Potassium 4.2 mmol/L (3.5-5.1)
[2020-08-04 07:17] LABS: Bilirubin,Total 4.3 mg/dl (0.2-1)
--- NOTE | 2020-08-04 07:37 | CT Scan Report ---
CT SCAN OF THE ABDOMEN AND PELVIS WITH IV CONTRAST CLINICAL HISTORY: Generalized abdominal pain status post ERCP. COMPARISON STUDY: Abdominal CT dated 08/02/2020. MRCP dated 08/02/2020. TECHNIQUE: Following the IV administration of 84 cc of Optiray 300, CT scan of the abdomen and pelvi s is performed from the lung bases to the proximal femora. Images are reviewed in the axial, sagittal , and coronal planes. IV contrast was administered without complication. A dose lowering technique wa s utilized adhering to the principles of ALARA. CT DOSE: 472.26 mGy.cm FINDINGS: Lung bases: The heart is normal in size and without pericardial effusion. The lung bases are clear no ting dependent atelectasis. Liver: The contrast-enhanced liver is normal in size, contour, and attenuation. There is mild intrahe patic biliary ductal dilatation. The hepatic veins and portal veins are patent. Gallbladder: The gallbladder is mildly distended and filled with IV contrast. Noting scattered foci o f atherosclerotic calcification there is mild wall thickening and enhancement of the common bile duct . Spleen: Normal in size and attenuation. Pancreas: The pancreas is mildly enlarged and edematous. There is peripancreatic stranding and fluid consistent with acute pancreatitis. The gland enhances homogeneously. The splenic vein is patent. No organized peripancreatic fluid collection is identified. Adrenal glands: Unremarkable. Kidneys: The contrast enhanced kidneys are normal in size and without hydronephrosis. The kidneys enh ance symmetrically. Abdominal vasculature: The abdominal aorta is normal in course and caliber. Bowel: There is no bowel obstruction. The appendix is normal as visualized. Peritoneum: There is a small volume of abdominopelvic ascites. No intraperitoneal free air is identif ied. Lymphadenopathy: None. Pelvic viscera: The bladder wall appears mildly thickened. The prostate and seminal vesicles are norm al as imaged. Skeletal structures: There is mild lumbosacral spondylosis. A benign-appearing and expansile fat atte nuation lesion in the right iliac wing is unchanged and may resent a hemangioma. A hemangioma is also seen in the body of L1. No lytic or blastic lesions are seen. IMPRESSION: 1. Findings are consistent with acute pancreatitis. Correlate with clinical findings and serum amylas e/lipase levels. 2. The pancreas enhances homogeneously. No organized peripancreatic fluid collection is identified. 3. The gallbladder is mildly distended and filled with contrast consistent with recent ERCP. 4. Mild wall thickening and enhancement of the wall of the common bile duct is nonspecific and may be related to recent procedure. 5. Mild intrahepatic biliary ductal dilatation persists. 6. Small volume of abdominopelvic ascites. 7. The bladder wall appears mildly thickened. Correlate with clinical findings and urinalysis. 8. Additional findings as above. ACT 112: Negative or not required by law. Electronically signed by: Leif Granda M.D. 08/04/2020 7:36 AM
--- NOTE | 2020-08-04 09:56 | Hospitalist Progress Note ---
Date of Service August 04, 2020 Assessment & Plan (1) Acute cholecystitis: Presents with acute right upper quadrant pain, elevated LFTs in obstructive pattern, and borderline dilated CBD and dilated intrahepatic biliary ducts With evidence of acute cholecystitis both on CT abdomen/pelvis and RUQ US. No evidence of cholangitis on admission -Admitted to medical/surgical floor for further evaluation and treatment -MRCP suspicious for filling defects in the CBD, and confirms acute cholecystitis -Now status post ERCP-shows multiple biliary tree strictures, main duct dilated and 2 small black stones were removed GI suspects possible PSC, also with cystic duct stricture likely cause of acute cholecystitis -Continue IV Zosyn and convert to p.o. antibiotics after cholecystectomy for total of 10 days-we will use Cipro and Flagyl on discharge -Consult surgery to evaluate for cholecystectomy-tentatively planned for Wednesday -LFTs were significantly up with bilirubin up to 6, and now all trending downward now that CBD duct dilated and stones removed He remains afebrile -Follow LFTs, CBC, BMP in AM -Pain control with IV Dilaudid as needed -NPO today for pancreatitis as below and keep n.p.o. after midnight -Continue IV fluids with LR at 125 mL's per hour-decrease rate as below for decreasing BS at bases He is typically very active, walks many miles per week and can easily go up and down flight of stairs without any chest pain or shortness of breath. He is at average risk for perioperative cardiovascular complications and should proceed with surgery (2) Biliary stricture: As above, GI suspects PSC Will need close outpatient follow-up with GI and PCP once he is discharged as he lives in [place] CD burned for him which has all of his imaging studies including the fluoroscopy from the ERCP on it Need to rule out secondary causes of cholangitis as well, may need liver biopsy -Also recommended he discontinue all outpatient supplements at this time including milk thistle -check CHRISTOPHER, Anti-smooth muscle AB, Anti-mitochondrial AB in AM (3) Choledocholithiasis: As above (4) Post-ERCP acute pancreatitis: Had severe epigastric pain and found to have post-ERCP pancreatitis on evening of 08/03 Improving continue IV dilaudid prn Was on LR at 200mLs/hr all night, now with diminished BS at bases--> decrease LR to 125mLs lipase 10k--> 6k today, follow lipase, LFTs in AM (5) Elevated LFTs: As above, in obstructive pattern, now improving Follow LFTs in the morning (6) Abdominal pain: As above, secondary to acute aissatou, choledocholithiasis, and now pancreatitis -continue IV Dilaudid as needed (7) Hyperlipidemia: Continue to hold home statin until LFTs normalized as outpt (8) Macrocytosis without anemia: MCV 105 but not anemic COuld be due to EtOH use-has 2-3 drinks daily COuld be liver disease as above check B12, folate in AM (9) DVT prophylaxis: SCDs only for now because of need for procedure tomorrow Disposition-continued stay medical/surgical floor Full code Admission and Anticipated Discharge Date Admission Date: August 02, 2020 Subjective Pt had episode of severe abd pain last night in upper abdomen and was down on his hands and knees on floor in severe pain and couldn't get up, couldn't speak. He also had urinary retention last night and again currently when I saw him and was about to get straight cathed for the second time. He reports being fearful that the pain will return. He had repeat urgent CT scan which showed pancreatitis, secondary to ERCP. Currently feels like it's hard to take a deep breath because it causes pain and hiccups. But denies SOB. Has not moved his bowels since the day of admission. Review of Systems Review of Systems: All systems reviewed & are unremarkable except as noted in HPI & below Physical Exam Constitutional: WD/WN, vitals as above Eyes: + scleral abnormality (Scleral icterus) Neck: trachea midline, no thyromegaly Respiratory: normal respiratory effort Auscultation: + diminished lung sounds (at bases); no crackles and no wheezes Cardiovascular: RRR, no murmur, no edema Extremities: no calf tenderness Chest (Breasts): Chest: normal inspection of chest Gastrointestinal (Abdomen): Inspection/Auscultation: abdomen normal to inspection and normal bowel sounds; abdomen not distended Percussion/Palpation: + abdomen tender (in RUQ w/o guarding or rebound) and abdomen soft; no guarding and abdomen not rigid Musculoskeletal: Extremities: extremities normal to inspection; no cyanosis and no clubbing Skin: no rashes, warm and dry + jaundice Neurologic: moves all extremities and awake; no focal motor deficits Psychiatric: A+Ox3, euthymic affect Lymphatic: no lymphedema Results & Data Results & Data ([facility]) Vital Signs (Past 12 Hours) Vital Signs Temp Pulse Resp BP Pulse Ox 08/04/20 07:42 37.1 C 74 16 147/99 H 93 08/04/20 00:10 37.1 C 96 H 18 103/65 92 Laboratory Results 08/04/20 08/04/20 08/04/20 Range/Units 06:53 06:25 06:25 WBC (4.8-10.8) K/uL RBC (4.7-6.1) M/uL Hgb (14.0-18.0) g/dL Hct (42-52) % MCV (80-100) fL MCH (25-34) pg MCHC (32-36) g/dL RDW Std Deviation (36.4-46.3) fL RDW Coeff of Chris (11.5-14.5) % Plt Count (130-400) K/uL MPV (7.4-10.4) fL Immature Gran % (Auto) % Neut % (Auto) % Lymph % (Auto) % Bowie % (Auto) % Eos % (Auto) % Baso % (Auto) % Neut # (Auto) (1.4-6.5) K/uL Lymph # (Auto) (1.2-3.4) K/uL Bowie # (Auto) (0.11-0.59) K/uL Eos # (Auto) (0-0.5) K/uL Baso # (Auto) (0-0.2) K/uL Immature Gran # (Auto) (0.00-0.02) K/uL Sodium 138 (136-145) mmol/L Potassium 4.2 (3.5-5.1) mmol/L Chloride 102 (98-107) mmol/L Carbon Dioxide 31 (21-32) mmol/L Anion Gap 5.0 (3-11) BUN 12 (7-18) mg/dl Creatinine 0.87 (0.6-1.4) mg/dl Est Cr Clr Drug Dosing 105.3 ml/min Est GFR ( Amer) 112.6 Est GFR (Non-Af Amer) 97.2 BUN/Creatinine Ratio 13.5 (10-20) Glucose 136 H (70-99) mg/dl Lactate 1.0 (0.4-2.0) mmol/L Calcium 9.1 (8.5-10.1) mg/dl Total Bilirubin 4.3 H (0.2-1) mg/dl Direct Bilirubin 3.1 H (0-0.2) mg/dl AST 457 H (15-37) U/L ALT 809 H (12-78) U/L Alkaline Phosphatase 238 H (45-117) U/L Total Protein 6.0 L (6.4-8.2) gm/dl Albumin 3.0 L (3.4-5.0) gm/dl Lipase 6444 H (73-393) U/L 08/04/20 Range/Units 06:25 WBC 7.74 (4.8-10.8) K/uL RBC 4.28 L (4.7-6.1) M/uL Hgb 15.3 (14.0-18.0) g/dL Hct 45.1 (42-52) % MCV 105.4 H (80-100) fL MCH 35.7 H (25-34) pg MCHC 33.9 (32-36) g/dL RDW Std Deviation 50.1 H (36.4-46.3) fL RDW Coeff of Chris 12.9 (11.5-14.5) % Plt Count 231 (130-400) K/uL MPV 9.5 (7.4-10.4) fL Immature Gran % (Auto) 0.1 % Neut % (Auto) 86.0 % Lymph % (Auto) 5.0 % Bowie % (Auto) 8.8 % Eos % (Auto) 0.0 % Baso % (Auto) 0.1 % Neut # (Auto) 6.65 H (1.4-6.5) K/uL Lymph # (Auto) 0.39 L (1.2-3.4) K/uL Bowie # (Auto) 0.68 H (0.11-0.59) K/uL Eos # (Auto) 0.00 (0-0.5) K/uL Baso # (Auto) 0.01 (0-0.2) K/uL Immature Gran # (Auto) 0.01 (0.00-0.02) K/uL Sodium (136-145) mmol/L Potassium (3.5-5.1) mmol/L Chloride (98-107) mmol/L Carbon Dioxide (21-32) mmol/L Anion Gap (3-11) BUN (7-18) mg/dl Creatinine (0.6-1.4) mg/dl Est Cr Clr Drug Dosing ml/min Est GFR ( Amer) Est GFR (Non-Af Amer) BUN/Creatinine Ratio (10-20) Glucose (70-99) mg/dl Lactate (0.4-2.0) mmol/L Calcium (8.5-10.1) mg/dl Total Bilirubin (0.2-1) mg/dl Direct Bilirubin (0-0.2) mg/dl AST (15-37) U/L ALT (12-78) U/L Alkaline Phosphatase (45-117) U/L Total Protein (6.4-8.2) gm/dl Albumin (3.4-5.0) gm/dl Lipase (73-393) U/L PG Care Time/CCT Total # of Minutes Spent Total Time Spent with Patient: Total time spent is greater than 50% in coordination of care (as documented) at patient's floor/unit and/or counseling patient: Coding Level of Care Code 26355 Subseq Hosp Care Lvl 3 Diagnoses Acute cholecystitis K81.0 Biliary stricture K83.1 Choledocholithiasis K80.50 Post-ERCP acute pancreatitis K91.89; K85.90 Elevated LFTs R79.89 Abdominal pain R10.9 Hyperlipidemia E78.5 Macrocytosis without anemia D75.89 DVT prophylaxis Z29.9
[2020-08-04] MEDS: HYDROmorphone INJ 1 MG/ML SYRINGE IV PRN ×5 (10:43→22:25)
--- NOTE | 2020-08-04 11:47 | Electrocardiogram Report ---
Test Reason : Blood Pressure : / mmHG Vent. Rate : 053 BPM Atrial Rate : 053 BPM P-R Int : 152 ms QRS Dur : 092 ms QT Int : 458 ms P-R-T Axes : 002 020 009 degrees QTc Int : 429 ms Sinus bradycardia U-waves present; r/o electrolyte imbalance Otherwise normal ECG When compared with ECG of 02-AUG-2020 11:35, No significant change was found Confirmed by Chace Ospina [id number]) on 08/04/2020 11:46:33 AM Referred By: REFERRED SELF Confirmed By:Chace Ospina
--- NOTE | 2020-08-04 11:48 | Gastroenterology Progress Note ---
Date of Service August 04, 2020 Assessment & Plan Admission and Anticipated Discharge Date Admission Date: August 02, 2020 Subjective Patient was bulmaro and examined today, developed sharp abdominal pain last night and labd and CT scan suggestive of mild post ERCP pancreatitis. Today he feels much better, pain is well controlled and feels slightly hungry. Vitals normal with no SIRS. Labs: LFTs improving and trending down. Recommend: Continue IV Hydration, decrease to 175 cc/hr for now and may decrease the rate further if any signs of respiratory changes. Pain control. Lap aissatou once pancreatitis resolved. Patient will follow up at [place] once discharged . Results & Data ([facility]) Vital Signs (Past 12 Hours) Vital Signs Temp Pulse Resp BP Pulse Ox 08/04/20 07:42 37.1 C 74 16 147/99 H 93 08/04/20 00:10 37.1 C 96 H 18 103/65 92
[2020-08-05] MEDS: ACETAMINOPHEN 325 MG TAB PO PRN ×3 (00:08→21:54)
[2020-08-05] MEDS: HYDROmorphone INJ 0.5 MG/0.5 ML SYR IV PRN ×2 (00:41→03:50)
[2020-08-05] MEDS ORDERED: FUROSEMIDE 20 MG in SYRINGE 0 ML IV ONE (01:45)
[2020-08-05] MEDS: PIPERACILLIN/TAZOBACTAM 3.375 GM in DEXTROSE 5% 100 ML IV SCH ×3 (05:25→20:57)
[2020-08-05] MEDS: LACTATED RINGER'S 1,000 ML IV SCH ×3 (05:26→20:37)
[2020-08-05] MEDS: HYDROmorphone INJ 1 MG/ML SYRINGE IV PRN ×5 (05:49→21:54)
[2020-08-05 06:22] LABS: Basophils # (auto) 0.01 K/uL (0-0.2); Basophils % (auto) 0.1 %; Eosinophils # (auto) 0.01 K/uL (0-0.5); Eosinophils % (auto) 0.1 %; Hematocrit (blood only) 45.8 % (42-52); Hemoglobin 15.7 g/dL (14.0-18.0); Immature Granulocytes # (auto) 0.02 K/uL (0.00-0.02); Immature Granulocytes % (auto) 0.2 %; Lymphocytes # (auto) 0.65 K/uL (1.2-3.4); Lymphocytes % (auto) 6.5 %; Mean Corpuscular Hgb Conc 34.3 g/dL (32-36); Mean Platelet Volume 9.9 fL (7.4-10.4); Monocytes # (auto) 1.19 K/uL (0.11-0.59); Monocytes % (auto) 11.9 %; Neutrophils # (auto) 8.16 K/uL (1.4-6.5); Neutrophils % (auto) 81.2 %; Platelet Count 212 K/uL (130-400); RDW Standard Deviation 49.2 fL (36.4-46.3); Red Blood Count 4.49 M/uL (4.7-6.1); White Blood Count 10.04 K/uL (4.8-10.8)
[2020-08-05 07:03] LABS: BUN Creatinine Ratio 13.8 (10-20); Bilirubin Direct 4.8 mg/dl (0-0.2); Bilirubin,Total 7.3 mg/dl (0.2-1); Calcium 9.2 mg/dl (8.5-10.1); Creatinine Clr Calc Pharmacy 99.6 ml/min; Est GFR (African American) 108.1; Est GFR (Non-African American) 93.3; Magnesium 1.7 mg/dl (1.8-2.4); Phosphorus 2.8 mg/dl (2.5-4.9); Potassium 3.5 mmol/L (3.5-5.1); Total Protein 6.4 gm/dl (6.4-8.2)
[2020-08-05] MEDS: ONDANSETRON INJ 2 MG/ML 2 ML VIAL IV PRN ×2 (07:59→18:30)
--- NOTE | 2020-08-05 08:28 | Gastroenterology Progress Note ---
Date of Service August 05, 2020 Assessment & Plan (1) Biliary stricture: 54 year old male admitted with acute cholecystitis, biliary obstruction s/p ERCP w/ exam concerning for PSC with dominant stricture at lower third of the main bile duct (cytology pending), choledocholithiasis s/p biliary sphincterotomy and balloon extraction, post-procedure imaging concerning for peripancreatic stranding and fluid consistent with acute pancreatitis w/o fluid collection - Treat the pancreatitis - LR 150/200 mL hr - Antiemetics PRN - Analgesia PRN - NPO for bowel rest - Biliary stricture, choledocholithiasis - Await cytology results - Complete a 10 days course of PO ABx. - Monitor LFTs. - Cholecystitis - Proceed with cholecystectomy as the stricture is likely involving the cystic duct take off which explains his cholecystitis. - Establish with GI and hepatology back home - Repeat ERCP in 2 months to treat the left main duct stricture, may consider a spyglass exam or EUS basedon the results of the cytology from today. - Perform a colonoscopy electively as OP. Admission and Anticipated Discharge Date Admission Date: August 02, 2020 Supervising Physician Co-Signing Physician Notes Attending attestation I have seen, examined this patient, and agree with the findings and above by our mid-level provider ADALI Chun, with the following additions - patient with acute onset of pain with obstructive jaundice - Choledocholithiasis identified with mild intra and extra hepatic concerns for PSC - Mild PEP - Continue IVF - Continue Pain control - Blood and urine Cx's given fever - Will follow - Avoid advancing diet while pain is signficant Subjective Pt was seen and evaluated, chart reviewed. Pain somewhat improved on scheduled analgesia. No nausea,vomiting. Last BM was about 2/3 days ago. Some gas. Fever overnight. Cytology pending. + family history of celiac in sister + family history of cirrhosis in mother etiology unknown - no reported family history of ulcerative colitis or crohns CTAP 2020: Findings are consistent with acute pancreatitis. Correlate with clinical findings and serum amylase/lipase levels.The pancreas enhances homogeneously. No organized peripancreatic fluid collection is identified. The gallbladder is mildly distended and filled with contrast consistent with recent ERCP. Mild wall thickening and enhancement of the wall of the common bile duct is nonspecific and may be related to recent procedure.Mild intrahepatic biliary ductal dilatation persists.Small volume of abdominopelvic ascites. The bladder wall appears mildly thickened. Correlate with clinical findings and urinalysis. Additional findings as above. MRCP 2020: . Abnormal gallbladder, typical in appearance for acute cholecystitis. There is mild intra and extrahepatic biliary ductal dilatation.There is an apparent filling defect within the midportion of the common bile duct which could represent choledocholithiasis or stricture. Choledocholithiasis is favored. Surgical or endoscopic assessment is recommended.The intra and extrahepatic bile ducts are slightly beaded in appearance. This is nonspecific and of indeterminant significance. ABD US 2020: Abnormal gallbladder as above. Although no shadowing gallstones are identified, findings are concerning for acute cholecystitis. Clinical and laboratory correlation will be required. If clinically warranted a nuclear hepatobiliary scan could be considered for further assessment.Hepatomegaly and hepatic steatosis.Trace perihepatic ascites. CTAP 2020: No evidence of bowel obstruction. No evidence of free air Mild gallbladder distention, and mild gallbladder wall thickening. Borderline common bile duct enlargement and wall thickening. Minimally prominent central intrahepatic biliary ducts. Clinical correlation with regards to cholecystitis is recommended. A biliary ultrasound should be considered in follow-up. ERCP 2020: Cholangiogram findings suggestive of PSC with dominant stricture at lower third of the main bile duct. Cells for cytology obtained by brushing. The stricture was dilated with a 6 mm dilation balloon. - Choledocholithiasis was found. Complete removal was accomplished by biliary sphincterotomy and balloon extraction. Review of Systems Review of Systems: All systems reviewed & are unremarkable except as noted in HPI & below Still reports generalized abdominal pain, improved on schedueld analgesia. No nausea/vomiting. No black or bloody stools. No BM in 2/3 days Physical Exam Constitutional: well developed, well nourished, average body habitus and healthy appearing; no acute distress Eyes: PERRL and reactive pupils; sclerae not anicteric Neck: trachea midline Respiratory: normal respiratory effort, lungs clear to auscultation normal respiratory effort; no respiratory distress, no labored breathing and no cough Auscultation: no diminished lung sounds, no crackles and no wheezes Cardiovascular: RRR, no murmur, no edema Heart Sounds: normal S1; no murmur and no cardiac rub Gastrointestinal (Abdomen): Inspection/Auscultation: abdomen normal to inspection and normal bowel sounds; abdomen not distended Percussion/Palpation: + abdomen tender and abdomen soft; no guarding, abdomen not rigid, no abdominal mass and no ascites Skin: no rashes, warm and dry + jaundice Results & Data ([facility]) Vital Signs (Past 12 Hours) Vital Signs Temp Pulse Resp BP Pulse Ox 08/05/20 07:38 37.5 C 93 H 16 132/85 92 08/05/20 05:40 96 08/05/20 03:46 37.4 C 08/05/20 01:36 38.2 C H 08/05/20 00:02 38.6 C H 92 08/05/20 00:00 83 L 08/04/20 23:17 37.9 C H 90 16 157/91 H 84 L Laboratory Results 08/05/20 08/05/20 08/05/20 Range/Units 06:00 06:00 06:00 WBC (4.8-10.8) K/uL RBC (4.7-6.1) M/uL Hgb (14.0-18.0) g/dL Hct (42-52) % MCV (80-100) fL MCH (25-34) pg MCHC (32-36) g/dL RDW Std Deviation (36.4-46.3) fL RDW Coeff of Chris (11.5-14.5) % Plt Count (130-400) K/uL MPV (7.4-10.4) fL Immature Gran % (Auto) % Neut % (Auto) % Lymph % (Auto) % [place] % (Auto) % Eos % (Auto) % Baso % (Auto) % Neut # (Auto) (1.4-6.5) K/uL Lymph # (Auto) (1.2-3.4) K/uL [place] # (Auto) (0.11-0.59) K/uL Eos # (Auto) (0-0.5) K/uL Baso # (Auto) (0-0.2) K/uL Immature Gran # (Auto) (0.00-0.02) K/uL Sodium 134 L (136-145) mmol/L Potassium 3.5 D (3.5-5.1) mmol/L Chloride 97 L (98-107) mmol/L Carbon Dioxide 31 (21-32) mmol/L Anion Gap 6.0 (3-11) BUN 13 (7-18) mg/dl Creatinine 0.92 (0.6-1.4) mg/dl Est Cr Clr Drug Dosing 99.6 ml/min Est GFR ( Amer) 108.1 Est GFR (Non-Af Amer) 93.3 BUN/Creatinine Ratio 13.8 (10-20) Glucose 115 H (70-99) mg/dl Calcium 9.2 (8.5-10.1) mg/dl Phosphorus 2.8 (2.5-4.9) mg/dl Magnesium 1.7 L (1.8-2.4) mg/dl Total Bilirubin 7.3 H D (0.2-1) mg/dl Direct Bilirubin 4.8 H D (0-0.2) mg/dl AST 230 H (15-37) U/L ALT 582 H (12-78) U/L Alkaline Phosphatase 204 H (45-117) U/L Total Protein 6.4 (6.4-8.2) gm/dl Albumin 3.0 L (3.4-5.0) gm/dl Lipase 2428 H (73-393) U/L Vitamin B12 Pending Folate Pending CHRISTOPHER Screen Pending Anti-Mitochondrial Ab Pending Anti-Smooth Muscle Ab Pending 08/05/20 Range/Units 06:00 WBC 10.04 (4.8-10.8) K/uL RBC 4.49 L (4.7-6.1) M/uL Hgb 15.7 (14.0-18.0) g/dL Hct 45.8 (42-52) % MCV 102.0 H (80-100) fL MCH 35.0 H (25-34) pg MCHC 34.3 (32-36) g/dL RDW Std Deviation 49.2 H (36.4-46.3) fL RDW Coeff of Chris 13.0 (11.5-14.5) % Plt Count 212 (130-400) K/uL MPV 9.9 (7.4-10.4) fL Immature Gran % (Auto) 0.2 % Neut % (Auto) 81.2 % Lymph % (Auto) 6.5 % [place] % (Auto) 11.9 % Eos % (Auto) 0.1 % Baso % (Auto) 0.1 % Neut # (Auto) 8.16 H (1.4-6.5) K/uL Lymph # (Auto) 0.65 L (1.2-3.4) K/uL [place] # (Auto) 1.19 H (0.11-0.59) K/uL Eos # (Auto) 0.01 (0-0.5) K/uL Baso # (Auto) 0.01 (0-0.2) K/uL Immature Gran # (Auto) 0.02 (0.00-0.02) K/uL Sodium (136-145) mmol/L Potassium (3.5-5.1) mmol/L Chloride (98-107) mmol/L Carbon Dioxide (21-32) mmol/L Anion Gap (3-11) BUN (7-18) mg/dl Creatinine (0.6-1.4) mg/dl Est Cr Clr Drug Dosing ml/min Est GFR ( Amer) Est GFR (Non-Af Amer) BUN/Creatinine Ratio (10-20) Glucose (70-99) mg/dl Calcium (8.5-10.1) mg/dl Phosphorus (2.5-4.9) mg/dl Magnesium (1.8-2.4) mg/dl Total Bilirubin (0.2-1) mg/dl Direct Bilirubin (0-0.2) mg/dl AST (15-37) U/L ALT (12-78) U/L Alkaline Phosphatase (45-117) U/L Total Protein (6.4-8.2) gm/dl Albumin (3.4-5.0) gm/dl Lipase (73-393) U/L Vitamin B12 Folate CHRISTOPHER Screen Anti-Mitochondrial Ab Anti-Smooth Muscle Ab
[2020-08-05] MEDS ORDERED: MAGNESIUM SULFATE / D5W 1 GM/100 ML BAG IV ONE (08:30)
[2020-08-05 08:39] LABS: Folate (Folic Acid) 17.7 ng/ml (>5.38)
--- NOTE | 2020-08-05 11:17 | Hospitalist Progress Note ---
Date of Service August 05, 2020 Assessment & Plan (1) Acute cholecystitis: Presents with acute right upper quadrant pain, elevated LFTs in obstructive pattern, and borderline dilated CBD and dilated intrahepatic biliary ducts With evidence of acute cholecystitis both on CT abdomen/pelvis and RUQ US. MRCP suspicious for filling defects in the CBD, and confirms acute cholecystitis. s/p ERCP 08/03 - shows multiple biliary tree strictures, main duct dilated and 2 small black stones were removed GI suspects possible PSC, also with cystic duct stricture likely cause of acute cholecystitis - Continue IV Zosyn and convert to p.o. antibiotics after cholecystectomy for total of 10 days - we will use Cipro and Flagyl on discharge - Discussed with Dr Franklin at bedside. NPO for pancreatitis and possible repeat ERCP vs. cholecystectomy tomorrow pending repeat LFTs in AM. If bilirubin uptrending may need repeat ERCP prior to cholecystectomy. - Continue IV fluids with LR at 125 mL's per hour-decrease rate as below for decreasing BS at bases He is typically very active, walks many miles per week and can easily go up and down flight of stairs without any chest pain or shortness of breath. He is at average risk for perioperative cardiovascular complications and should proceed with surgery (2) Biliary stricture: As above, GI suspects PSC Will need close outpatient follow-up with GI and PCP once he is discharged as he lives in [place] CD burned for him which has all of his imaging studies including the fluoroscopy from the ERCP on it -Also recommended he discontinue all outpatient supplements at this time including milk thistle - CHRISTOPHER, Anti-smooth muscle AB, Anti-mitochondrial AB pending (3) Choledocholithiasis: As above (4) Post-ERCP acute pancreatitis: Had severe epigastric pain and found to have post-ERCP pancreatitis on evening of 08/03 Improving continue IV dilaudid prn Decreased LR to 125mLs lipase 10k -> 2428 today, follow lipase, LFTs in AM (5) Urinary retention: Pike cath placed 08/04 due to urinary retention. Bladder scan recorded at 516 ml prior to this. Suspect related to opiate pain medication and will avoid tamsulosin at this time as likely can be successfully removed later in the hospitalization. (6) Hypoxia: Notably hypoxic overnight. Given Lasix 20mg IV. Will get CXR Chest CTAB today. Will get CXR as no baseline taken on admission however suspect any pulmonary edema was related to urinary retention. (7) Elevated LFTs: as above (8) Abdominal pain: As above, secondary to acute aissatou, choledocholithiasis, and now pancreatitis -continue IV Dilaudid as needed (9) Hyperlipidemia: Continue to hold home statin until LFTs normalized as outpt (10) Macrocytosis without anemia: MCV 105 but not anemic Suspect secondary to EtOH use-has 2-3 drinks daily B12 and folate levels normal (11) DVT prophylaxis: SCDs only for now because of need for procedure tomorrow Disposition-continued stay medical/surgical floor Full code Admission and Anticipated Discharge Date Admission Date: August 02, 2020 Subjective Continued abdominal pain, severity 4/10, febrile overnight 38.6 and hypoxic at 84% on room air. Concern for fluid overload although no CXR taken and patient given furosemide 20mg IV overnight. +ve 7343ml this admission. Bilirubin increased to 7.3 from 4.3 post ERCP performed on 08/03. Lipase continues to downtrend. Review of Systems Review of Systems: All systems reviewed & are unremarkable except as noted in HPI & below Physical Exam Constitutional: WD/WN, vitals as above Eyes: sclerae not anicteric and normal pupil size Neck: trachea midline Respiratory: normal respiratory effort, lungs clear to auscultation Cardiovascular: RRR, no murmur, no edema Gastrointestinal (Abdomen): Inspection/Auscultation: normal bowel sounds Percussion/Palpation: + abdomen tender (RUQ) and abdomen soft; no guarding and abdomen not rigid Musculoskeletal: no cyanosis or clubbing, extremities motor strength 5/5 Skin: no rashes, warm and dry Psychiatric: A+Ox3, euthymic affect Results & Data Results & Data ([facility]) Vital Signs (Past 12 Hours) Vital Signs Temp Pulse Resp BP Pulse Ox 08/05/20 07:38 37.5 C 93 H 16 132/85 92 08/05/20 05:40 96 08/05/20 03:46 37.4 C 08/05/20 01:36 38.2 C H 08/05/20 00:02 38.6 C H 92 08/05/20 00:00 83 L PG Care Time/CCT Total # of Minutes Spent Total Time Spent with Patient: Total time spent is greater than 50% in coordination of care (as documented) at patient's floor/unit and/or counseling patient: Coding Level of Care Code 12816 Subseq Hosp Care Lv 3 Diagnoses Acute cholecystitis K81.0 Biliary stricture K83.1 Choledocholithiasis K80.50 Post-ERCP acute pancreatitis K91.89; K85.90 Urinary retention R33.9 Hypoxia R09.02 Elevated LFTs R79.89 Abdominal pain R10.11 Abdominal location: right upper quadrant Hyperlipidemia E78.5 Hyperlipidemia type: unspecified Macrocytosis without anemia D75.89 DVT prophylaxis Z29.9 (1) Abdominal pain Abdominal location: right upper quadrant Qualified Code(s): R10.11 - Right upper quadrant pain (2) Hyperlipidemia Hyperlipidemia type: unspecified Qualified Code(s): E78.5 - Hyperlipidemia, unspecified
--- NOTE | 2020-08-05 11:40 | Surgery Progress Note ---
Date of Service August 05, 2020 Assessment & Plan (1) Acute cholecystitis: pt is a 54 year-old male who was admitted to hospital for acute abdominal with acute cholecystitis and abdominal LFTs. S/p ERCO with biliary ductal baloon dilatation and stone extraction, NO STENT Placement, biopsies obtained (awaiting results) Concern for PSC given distal 1/3 of common duct stricture. Acute cholecystitis likely due to stricture of cystic duct T. bili up to 7.3 (4.3 yesterday) d. marion up to 4.8 (3.1 yesterday) Improvement of LFTS Lipase improved to 2428 (post ERCP pancreatitis , lipase 10,000 08/03/20) Plan: Given elevation of t. bili and lipase still elevated (but improved) would like to hold off on cholecystectomy today. Continue current IV antibiotics and pain management repeat am labs to evaluate t. bili, lfts, lipase Discussed with GI, plan is to repeat labs tomorrow, did not feel he was clinically ready for cholecystectomy today, awaiting biopsy results. Likely will not stent if biopsies still pending but will await repeat t.bili results tomorrow. Continue medical management Dr. Franklin has seen and examined pt, agrees with above. Admission and Anticipated Discharge Date Admission Date: August 02, 2020 Subjective feeling better in regards to pain but still present GI was concerned about increasing t. bili per patient but no plans for anything today Physical Exam Constitutional: well developed and well nourished; no acute distress Eyes: Icteric sclerae Respiratory: normal respiratory effort; no respiratory distress Gastrointestinal (Abdomen): Inspection/Auscultation: abdomen normal to inspection; abdomen not distended Percussion/Palpation: + abdomen tender (ruq/epigastric) and abdomen soft; no guarding and abdomen not rigid Skin: no rashes, warm and dry + jaundice Psychiatric: A+Ox3, euthymic affect Results & Data ([facility]) Vital Signs (Past 12 Hours) Vital Signs Temp Pulse Resp BP Pulse Ox 08/05/20 07:38 37.5 C 93 H 16 132/85 92 08/05/20 05:40 96 08/05/20 03:46 37.4 C 08/05/20 01:36 38.2 C H 08/05/20 00:02 38.6 C H 92 08/05/20 00:00 83 L Laboratory Results 08/05/20 08/05/20 08/05/20 Range/Units 06:00 06:00 06:00 WBC (4.8-10.8) K/uL RBC (4.7-6.1) M/uL Hgb (14.0-18.0) g/dL Hct (42-52) % MCV (80-100) fL MCH (25-34) pg MCHC (32-36) g/dL RDW Std Deviation (36.4-46.3) fL RDW Coeff of Chris (11.5-14.5) % Plt Count (130-400) K/uL MPV (7.4-10.4) fL Immature Gran % (Auto) % Neut % (Auto) % Lymph % (Auto) % [place] % (Auto) % Eos % (Auto) % Baso % (Auto) % Neut # (Auto) (1.4-6.5) K/uL Lymph # (Auto) (1.2-3.4) K/uL [place] # (Auto) (0.11-0.59) K/uL Eos # (Auto) (0-0.5) K/uL Baso # (Auto) (0-0.2) K/uL Immature Gran # (Auto) (0.00-0.02) K/uL Sodium 134 L (136-145) mmol/L Potassium 3.5 D (3.5-5.1) mmol/L Chloride 97 L (98-107) mmol/L Carbon Dioxide 31 (21-32) mmol/L Anion Gap 6.0 (3-11) BUN 13 (7-18) mg/dl Creatinine 0.92 (0.6-1.4) mg/dl Est Cr Clr Drug Dosing 99.6 ml/min Est GFR ( Amer) 108.1 Est GFR (Non-Af Amer) 93.3 BUN/Creatinine Ratio 13.8 (10-20) Glucose 115 H (70-99) mg/dl Calcium 9.2 (8.5-10.1) mg/dl Phosphorus 2.8 (2.5-4.9) mg/dl Magnesium 1.7 L (1.8-2.4) mg/dl Total Bilirubin 7.3 H D (0.2-1) mg/dl Direct Bilirubin 4.8 H D (0-0.2) mg/dl AST 230 H (15-37) U/L ALT 582 H (12-78) U/L Alkaline Phosphatase 204 H (45-117) U/L Total Protein 6.4 (6.4-8.2) gm/dl Albumin 3.0 L (3.4-5.0) gm/dl Lipase 2428 H (73-393) U/L Vitamin B12 953 (193-986) pg/ml Folate 17.70 (>5.38) ng/ml CHRISTOPHER Screen Pending Anti-Mitochondrial Ab Pending Anti-Smooth Muscle Ab Pending Hepatitis C Ab Screen (Neg) 08/05/20 08/03/20 Range/Units 06:00 10:01 WBC 10.04 (4.8-10.8) K/uL RBC 4.49 L (4.7-6.1) M/uL Hgb 15.7 (14.0-18.0) g/dL Hct 45.8 (42-52) % MCV 102.0 H (80-100) fL MCH 35.0 H (25-34) pg MCHC 34.3 (32-36) g/dL RDW Std Deviation 49.2 H (36.4-46.3) fL RDW Coeff of Chris 13.0 (11.5-14.5) % Plt Count 212 (130-400) K/uL MPV 9.9 (7.4-10.4) fL Immature Gran % (Auto) 0.2 % Neut % (Auto) 81.2 % Lymph % (Auto) 6.5 % [place] % (Auto) 11.9 % Eos % (Auto) 0.1 % Baso % (Auto) 0.1 % Neut # (Auto) 8.16 H (1.4-6.5) K/uL Lymph # (Auto) 0.65 L (1.2-3.4) K/uL [place] # (Auto) 1.19 H (0.11-0.59) K/uL Eos # (Auto) 0.01 (0-0.5) K/uL Baso # (Auto) 0.01 (0-0.2) K/uL Immature Gran # (Auto) 0.02 (0.00-0.02) K/uL Sodium (136-145) mmol/L Potassium (3.5-5.1) mmol/L Chloride (98-107) mmol/L Carbon Dioxide (21-32) mmol/L Anion Gap (3-11) BUN (7-18) mg/dl Creatinine (0.6-1.4) mg/dl Est Cr Clr Drug Dosing ml/min Est GFR ( Amer) Est GFR (Non-Af Amer) BUN/Creatinine Ratio (10-20) Glucose (70-99) mg/dl Calcium (8.5-10.1) mg/dl Phosphorus (2.5-4.9) mg/dl Magnesium (1.8-2.4) mg/dl Total Bilirubin (0.2-1) mg/dl Direct Bilirubin (0-0.2) mg/dl AST (15-37) U/L ALT (12-78) U/L Alkaline Phosphatase (45-117) U/L Total Protein (6.4-8.2) gm/dl Albumin (3.4-5.0) gm/dl Lipase (73-393) U/L Vitamin B12 (193-986) pg/ml Folate (>5.38) ng/ml CHRISTOPHER Screen Anti-Mitochondrial Ab Anti-Smooth Muscle Ab Hepatitis C Ab Screen Neg (Neg)
--- NOTE | 2020-08-05 20:33 | XRay Report ---
XR chest 1V portable CLINICAL HISTORY: hypoxia COMPARISON STUDY: No previous studies for comparison. FINDINGS: There is no pneumothorax. There is a small left pleural effusion with left basilar opacity. Right basilar opacity favors atelectasis. Cardiac size is at the upper limits of normal. There is no evidence for pulmonary edema. Lung volumes are mildly diminished. IMPRESSION: 1. Small left pleural effusion with left basilar opacity that favors atelectasis. Consolidation could appear similar although is considered less likely. 2. Right basilar opacity consistent with atelectasis. 3. Mildly diminished lung volumes. ACT 112: Negative or not required by law. Electronically signed by: Ladarius Donohue M.D. 08/05/2020 8:31 PM
[2020-08-06] MEDS: HYDROmorphone INJ 1 MG/ML SYRINGE IV PRN ×6 (00:29→20:45)
[2020-08-06] MEDS: LACTATED RINGER'S 1,000 ML IV SCH ×3 (04:28→19:15)
[2020-08-06] MEDS: PIPERACILLIN/TAZOBACTAM 3.375 GM in DEXTROSE 5% 100 ML IV SCH ×3 (04:28→20:45)
[2020-08-06] MEDS: ACETAMINOPHEN 325 MG TAB PO PRN (05:58)
[2020-08-06 06:00] LABS: Basophils # (auto) 0.01 K/uL (0-0.2); Basophils % (auto) 0.1 %; Hemoglobin 13.6 g/dL (14.0-18.0); Immature Granulocytes # (auto) 0.03 K/uL (0.00-0.02); Immature Granulocytes % (auto) 0.3 %; Lymphocytes # (auto) 0.51 K/uL (1.2-3.4); Lymphocytes % (auto) 5.5 %; Mean Corpuscular Volume 102.8 fL (80-100); Mean Platelet Volume 9.4 fL (7.4-10.4); Monocytes # (auto) 1.33 K/uL (0.11-0.59); Monocytes % (auto) 14.4 %; Neutrophils # (auto) 7.36 K/uL (1.4-6.5); Neutrophils % (auto) 79.7 %; Platelet Count 176 K/uL (130-400); RDW Coefficient of Variation 12.9 % (11.5-14.5); Red Blood Count 3.89 M/uL (4.7-6.1); White Blood Count 9.24 K/uL (4.8-10.8)
[2020-08-06 06:43] LABS: Albumin Level 2.4 gm/dl (3.4-5.0); BUN Creatinine Ratio 17.1 (10-20); Bilirubin Direct 2.7 mg/dl (0-0.2); Calcium 8.2 mg/dl (8.5-10.1); Creatinine Clr Calc Pharmacy 109.1 ml/min; Est GFR (African American) 114.2; Est GFR (Non-African American) 98.6; Potassium 3.6 mmol/L (3.5-5.1)
[2020-08-06 06:50] LABS: Bilirubin,Total 4.1 mg/dl (0.2-1); Total Protein 5.7 gm/dl (6.4-8.2)
[2020-08-06] MEDS ORDERED: HYDROCODONE/ACETAMOPHEN 5/325MG TAB PO PRN (10:26)
--- NOTE | 2020-08-06 10:55 | Surgery Progress Note ---
Date of Service August 06, 2020 Assessment & Plan (1) Acute cholecystitis: pt is a 54 year-old male who was admitted to hospital for acute abdominal pain with acute cholecystitis and abdominal LFTs. S/p ERCP with biliary ductal balloon dilatation and stone extraction, NO STENT Placement, biopsies obtained (awaiting results) Concern for PSC given stricture of distal 1/3 of common duct. Developed post ERCP pancreatitis as of note, CT scan with contrast post ERCP showing contrast in gall bladder which proves cystic duct is not obstructed. T. bili, LFTS, and lipase improved today T. bili 7.3--> 4.1 d. marion 4.0 --> 2.7 AST 230 --> 86 ALT 582 --> 320 ALK Phos 206 --> 139 Lipase 2428 --> 346 (post ERCP pancreatitis , lipase 10,000 08/03/20) Plan: Given that patient's pain has improved, clinically improving, and total bilirubin, wbc, and lfts improved do not feel that cholecystectomy is urgent at this time. Patient would like to get back home to [facility] and have further GI/surgery evaluation/management as appropriate. Will trial clear liquids Will add PO Maybeury as needed for pain to assess pain management without IV Pain medication and if pain can be controlled with oral meds for discharge Discontinue Pike catheter to see if patient can void on his own Continue IV antibiotics Continue medical management Dr. Anderson has seen and examined pt, agrees with above. Admission and Anticipated Discharge Date Admission Date: August 02, 2020 Subjective feeling much better today abdominal pain is less severe and more of a discomfort. Is able to move around better without pain and use incentive spirometer without much pain still has catheter in bladder thirsty and a little hungry would like to work towards discharge if gallbladder surgery is not urgent/requir ed to be able to get back home to [place] and have further management/work- up there Physical Exam Constitutional: well developed, well nourished and comfortable; no acute distress Eyes: icteric sclerae Respiratory: normal respiratory effort; no respiratory distress and no labored breathing Gastrointestinal (Abdomen): Inspection/Auscultation: abdomen normal to inspe ction; abdomen not distended and no abdominal wall ecchymosis Percussion/Palpation: abdomen soft; abdomen nontender, no guarding and abdomen not rigid Skin: no rashes, warm and dry Psychiatric: A+Ox3, euthymic affect Results & Data ([facility]) Vital Signs (Past 12 Hours) Vital Signs Temp Pulse Resp BP Pulse Ox 08/06/20 07:07 37.2 C 08/06/20 06:40 38.1 C H 89 18 154/94 H 91 08/06/20 00:36 37.1 C 08/05/20 23:30 37.7 C H 08/05/20 23:18 38.7 C H 91 H 16 144/93 H 91 Laboratory Results 08/06/20 08/06/20 Range/Units 05:45 05:45 WBC 9.24 (4.8-10.8) K/uL RBC 3.89 L (4.7-6.1) M/uL Hgb 13.6 L (14.0-18.0) g/dL Hct 40.0 L (42-52) % MCV 102.8 H (80-100) fL MCH 35.0 H (25-34) pg MCHC 34.0 (32-36) g/dL RDW Std Deviation 48.0 H (36.4-46.3) fL RDW Coeff of Chris 12.9 (11.5-14.5) % Plt Count 176 (130-400) K/uL MPV 9.4 (7.4-10.4) fL Immature Gran % (Auto) 0.3 % Neut % (Auto) 79.7 % Lymph % (Auto) 5.5 % [place] % (Auto) 14.4 % Eos % (Auto) 0.0 % Baso % (Auto) 0.1 % Neut # (Auto) 7.36 H (1.4-6.5) K/uL Lymph # (Auto) 0.51 L (1.2-3.4) K/uL [place] # (Auto) 1.33 H (0.11-0.59) K/uL Eos # (Auto) 0.00 (0-0.5) K/uL Baso # (Auto) 0.01 (0-0.2) K/uL Immature Gran # (Auto) 0.03 H (0.00-0.02) K/uL Sodium 136 (136-145) mmol/L Potassium 3.6 (3.5-5.1) mmol/L Chloride 98 (98-107) mmol/L Carbon Dioxide 33 H (21-32) mmol/L Anion Gap 5.0 (3-11) BUN 14 (7-18) mg/dl Creatinine 0.84 (0.6-1.4) mg/dl Est Cr Clr Drug Dosing 109.1 ml/min Est GFR ( Amer) 114.2 Est GFR (Non-Af Amer) 98.6 BUN/Creatinine Ratio 17.1 (10-20) Glucose 117 H (70-99) mg/dl Calcium 8.2 L (8.5-10.1) mg/dl Total Bilirubin 4.1 H (0.2-1) mg/dl Direct Bilirubin 2.7 H (0-0.2) mg/dl AST 86 H (15-37) U/L ALT 320 H (12-78) U/L Alkaline Phosphatase 139 H (45-117) U/L Total Protein 5.7 L (6.4-8.2) gm/dl Albumin 2.4 L (3.4-5.0) gm/dl Lipase 346 (73-393) U/L
--- NOTE | 2020-08-06 11:08 | Gastroenterology Progress Note ---
Date of Service August 06, 2020 Assessment & Plan (1) Biliary stricture: 54 year old male admitted with acute cholecystitis, biliary obstruction s/p ERCP w/ exam concerning for PSC with dominant stricture at lower third of the main bile duct (cytology pending), choledocholithiasis s/p biliary sphincterotomy and balloon extraction, post-procedure imaging concerning for peripancreatic stranding and fluid consistent with acute pancreatitis w/o fluid collection Clinically improving, discussed with surgery will consider dietary advancement of clear liquids and possible discharge mid-week. Will need close follow up at home with gen-surg and GI - Treat the pancreatitis - LR 150/200 mL hr - Antiemetics PRN - Analgesia PRN - clear liquids - Biliary stricture, choledocholithiasis - Cytology negative - Complete a 10 days course of PO ABX. - Monitor LFTs. - Cholecystitis - Will discuss with general surgery - Establish with GI and hepatology back home - Repeat ERCP in 2 months to treat the left main duct stricture, may consider a spyglass exam or EUS - Perform a colonoscopy electively as OP. Recall as neededThank you for allowing us to participate in the care of this patient. Please call with any acute changes, questions or concerns. Please see addendum below with additional recommendation from my supervising physician. Admission and Anticipated Discharge Date Admission Date: August 02, 2020 Supervising Physician Co-Signing Physician Notes Attending attestation I have seen, examined this patient, and agree with the findings and above by our mid-level provider ADALI Chun, with the following additions Patient improved, in regards to both pain as well as symptomatology. Labs have improved today. Would advance diet minimize analgesia. Will need prompt follow-up as an outpatient locally likely with [facility] for likely PSC. Agree with holding on of cholecystectomy. Subjective Feeling well this AM. Less abd pain. No nausea, vomiting. Passing gas. No bowel movements. LFTs this AM improving. Cytology negative. Common bile duct, endoscopic brushing: - No malignant cells seen. TB 2.7 --> 6.4 --> 4.3 --> 7.3 --> 4.3 AST 496 --> 915 --> 457 --> 230 --> 86 ALT 520 --> 1025 --> 809 --> 582 --> 320 ALKP 308 --> 307 --> 238 --> 204 --> 139 Review of Systems Review of Systems: All systems reviewed & are unremarkable except as noted in HPI & below Physical Exam Constitutional: WD/WN, vitals as above well developed and well nourished; no acute distress Neck: trachea midline Respiratory: normal respiratory effort Cardiovascular: Rate/Rhythm: regular rate and regular rhythm Gastrointestinal (Abdomen): normal bowel sounds, soft, nontender, no hepatosplenomegaly Skin: no rashes, warm and dry Results & Data [facility] Vital Signs (Past 12 Hours) Vital Signs Temp Pulse Resp BP Pulse Ox 08/06/20 07:07 37.2 C 08/06/20 06:40 38.1 C H 89 18 154/94 H 91 08/06/20 00:36 37.1 C 08/05/20 23:30 37.7 C H 08/05/20 23:18 38.7 C H 91 H 16 144/93 H 91
[2020-08-06] MEDS: HYDROCODONE/ACETAMOPHEN 5/325MG TAB PO PRN ×3 (13:37→23:27)
[2020-08-06] MEDS ORDERED: POLYETHYLENE (MIRALAX) 17 GM PACK PO ONE (13:39)
[2020-08-06 15:03] LABS: Anti Mitochondrial Antibody NEGATIVE (NEGATIVE); Anti Nuclear Antibody Screen NEGATIVE (NEGATIVE); Smooth Muscle Antibody NEGATIVE (NEGATIVE)
--- NOTE | 2020-08-06 19:25 | Hospitalist Progress Note ---
Date of Service August 06, 2020 Assessment & Plan (1) Acute cholecystitis: Presents with acute right upper quadrant pain, elevated LFTs in obstructive pattern, and borderline dilated CBD and dilated intrahepatic biliary ducts With evidence of acute cholecystitis both on CT abdomen/pelvis and RUQ US. MRCP suspicious for filling defects in the CBD, and confirms acute cholecystitis. s/p ERCP 08/03 - shows multiple biliary tree strictures, main duct dilated and 2 small black stones were removed GI suspects possible PSC, also with cystic duct stricture likely cause of acute cholecystitis - Continue IV Zosyn and convert to p.o. antibiotics when taking more consistent oral intake - Marko/LFTs downtrending therefore holding off further ERCP or cholecystectomy at this time. - Continue IV fluids with LR at 125 ml/hr He is typically very active, walks many miles per week and can easily go up and down flight of stairs without any chest pain or shortness of breath. He is at average risk for perioperative cardiovascular complications and should proceed with surgery (2) Choledocholithiasis: As above (3) Biliary stricture: As above, GI suspects PSC Will need close outpatient follow-up with GI and PCP once he is discharged as he lives in [place] CD burned for him which has all of his imaging studies including the fluoroscopy from the ERCP on it -Also recommended he discontinue all outpatient supplements at this time including milk thistle - CHRISTOPHER, Anti-smooth muscle AB, Anti-mitochondrial AB pending (4) Ileus: MiraLAX BID (5) Post-ERCP acute pancreatitis: Resolved- severe epigastric pain and found to have post-ERCP pancreatitis on evening of 08/03 continue IV dilaudid prn Decreased LR to 125mLs lipase 10k -> 346 today (6) Urinary retention: Caballero cath placed 08/04 due to urinary retention. Bladder scan recorded at 516 ml prior to this. Suspect related to opiate pain medication and will avoid tamsulosin at this time as likely can be successfully removed later in the hospitalization. Will treat lack of BM initially and remove caballero cath after he has a BM (7) Hypoxia: Notably hypoxic overnight on 08/05. Given Lasix 20mg IV. CXR with atelectasis only, incentive spirometry ordered. (8) Elevated LFTs: as above (9) Abdominal pain: As above, secondary to acute aissatou, choledocholithiasis, pancreatitis and ileus -continue IV Dilaudid as needed, discussed trying to reduce amount to patient to help with ileus (10) Hyperlipidemia: Continue to hold home statin until LFTs normalized as outpt (11) Macrocytosis without anemia: MCV 105 but not anemic Suspect secondary to EtOH use-has 2-3 drinks daily B12 and folate levels normal (12) DVT prophylaxis: SCDs, mobile, young age, low risk therefore will defer VTE prophylaxis currently Disposition-continued stay medical/surgical floor Full code Admission and Anticipated Discharge Date Admission Date: August 02, 2020 Subjective No BM since admission, reportedly not passing flatus. Abdominal pain generally improving but not has more generalized mild pain. No nausea or vomiting. No fever or chills. Review of Systems Review of Systems: All systems reviewed & are unremarkable except as noted in HPI & below Physical Exam Constitutional: WD/WN, vitals as above Eyes: sclerae not anicteric and normal pupil size Neck: trachea midline Respiratory: normal respiratory effort, lungs clear to auscultation Cardiovascular: RRR, no murmur, no edema Gastrointestinal (Abdomen): Inspection/Auscultation: + hypoactive bowel sounds Percussion/Palpation: + abdomen tender (mild generalized) and abdomen soft; no guarding and abdomen not rigid Musculoskeletal: no cyanosis or clubbing, extremities motor strength 5/5 Skin: no rashes, warm and dry Psychiatric: A+Ox3, euthymic affect Results & Data Results & Data ([facility]) Vital Signs (Past 12 Hours) Vital Signs Temp Pulse Resp BP Pulse Ox 08/06/20 14:58 36.7 C 81 17 142/85 H 95 PG Care Time/CCT Total # of Minutes Spent Total Time Spent with Patient: Total time spent is greater than 50% in coordination of care (as documented) at patient's floor/unit and/or counseling patient: Coding Level of Care Code 87254 Subseq Hosp Care Lvl 2 Diagnoses Acute cholecystitis K81.0 Choledocholithiasis K80.50 Biliary stricture K83.1 Ileus K56.7 Post-ERCP acute pancreatitis K91.89; K85.90 Urinary retention R33.9 Hypoxia R09.02 Elevated LFTs R79.89 Abdominal pain R10.11 Abdominal location: right upper quadrant Hyperlipidemia E78.5 Hyperlipidemia type: unspecified Macrocytosis without anemia D75.89 DVT prophylaxis Z29.9 (1) Hyperlipidemia Hyperlipidemia type: unspecified Qualified Code(s): E78.5 - Hyperlipidemia, unspecified (2) Abdominal pain Abdominal location: right upper quadrant Qualified Code(s): R10.11 - Right upper quadrant pain
[2020-08-06] MEDS: POLYETHYLENE (MIRALAX) 17 GM PACK PO SCH (20:45)
[2020-08-07] MEDS ORDERED: MELATONIN 3 MG TAB PO PRN (01:35)
[2020-08-07] MEDS ORDERED: SIMETHICONE 80 MG CHEW PO ONE (01:45)
[2020-08-07] MEDS: LACTATED RINGER'S 1,000 ML IV SCH (03:31)
[2020-08-07] MEDS: HYDROCODONE/ACETAMOPHEN 5/325MG TAB PO PRN ×2 (03:32→08:39)
[2020-08-07] MEDS: PIPERACILLIN/TAZOBACTAM 3.375 GM in DEXTROSE 5% 100 ML IV SCH ×3 (05:19→20:51)
[2020-08-07] MEDS: HYDROmorphone INJ 1 MG/ML SYRINGE IV PRN (05:38)
[2020-08-07 07:20] LABS: Basophils # (auto) 0.01 K/uL (0-0.2); Basophils % (auto) 0.1 %; Eosinophils # (auto) 0.03 K/uL (0-0.5); Eosinophils % (auto) 0.4 %; Hematocrit (blood only) 35.3 % (42-52); Immature Granulocytes # (auto) 0.01 K/uL (0.00-0.02); Immature Granulocytes % (auto) 0.1 %; Lymphocytes # (auto) 0.47 K/uL (1.2-3.4); Lymphocytes % (auto) 6.8 %; Mean Corpuscular Hemoglobin 35.1 pg (25-34); Mean Corpuscular Volume 103.2 fL (80-100); Mean Platelet Volume 9.9 fL (7.4-10.4); Monocytes # (auto) 1.35 K/uL (0.11-0.59); Monocytes % (auto) 19.4 %; Neutrophils # (auto) 5.09 K/uL (1.4-6.5); Neutrophils % (auto) 73.2 %; Platelet Count 214 K/uL (130-400); RDW Coefficient of Variation 12.4 % (11.5-14.5); RDW Standard Deviation 46.8 fL (36.4-46.3); Red Blood Count 3.42 M/uL (4.7-6.1); White Blood Count 6.96 K/uL (4.8-10.8)
[2020-08-07 08:24] LABS: Albumin Level 2.2 gm/dl (3.4-5.0); Bilirubin Direct 1.5 mg/dl (0-0.2); Bilirubin,Total 2.5 mg/dl (0.2-1); Calcium 8.1 mg/dl (8.5-10.1); Creatinine Clr Calc Pharmacy 135.7 ml/min; Est GFR (Non-African American) 104.4; Potassium 3.2 mmol/L (3.5-5.1); Total Protein 5.7 gm/dl (6.4-8.2)
[2020-08-07] MEDS: SIMETHICONE 80 MG CHEW PO PRN ×2 (08:38→17:21)
[2020-08-07] MEDS: POLYETHYLENE (MIRALAX) 17 GM PACK PO SCH ×2 (08:39→20:48)
--- NOTE | 2020-08-07 08:56 | Gastroenterology Progress Note ---
Date of Service August 07, 2020 Assessment & Plan (1) Biliary stricture: 54 year old male admitted with acute cholecystitis, biliary obstruction s/p ERCP w/ exam concerning for PSC with dominant stricture at lower third of the main bile duct (cytology pending), choledocholithiasis s/p biliary sphincterotomy and balloon extraction, post-procedure imaging concerning for peripancreatic stranding and fluid consistent with acute pancreatitis w/o fluid collection Clinically improving, discussed with surgery will consider dietary advancement of clear liquids and possible discharge mid-week. Will need close follow up at home with gen-surg and GI. He has some distention this AM, no BM despite bowel regimen for 3 days. - Constipation - KUB today - OOB to chair - OOB walking - Miralax 1 capful twice daily - Tap water enema - Treat the pancreatitis - Ok to stop IV fluids as tolerating clear liquids - Antiemetics PRN - Analgesia PRN - If doing well today, consider advance to low fat low residue - Biliary stricture, choledocholithiasis - Cytology negative - Complete a 10 days course of PO ABX. - Monitor LFTs. - Cholecystitis - Will discuss with general surgery - Establish with GI and hepatology back home - Repeat ERCP in 2 months to treat the left main duct stricture, may consider a spyglass exam or EUS - Perform a colonoscopy electively as OP. Recall as needed. Thank you for allowing us to participate in the care of this patient. Please call with any acute changes, questions or concerns. Please see addendum below with additional recommendation from my supervising physician. Admission and Anticipated Discharge Date Admission Date: August 02, 2020 Supervising Physician Co-Signing Physician Notes Attending attestation I have seen, examined this patient, and agree with the findings and above by our mid-level provider ADALI Chun, with the following additions Patient improved, in regards to both pain as well as symptomatology. Labs have improved today. Would advance diet minimize analgesia. Will need prompt follow-up as an outpatient locally likely with [facility] for likely PSC. Agree with holding on of cholecystectomy until discussed as outpt D/C ada [place] Pt was seen and evaluated, chart reviewed. Tolerating clear liquids this AM. Bloated. No BM but passing gas and good bowel sounds Has had miralax x 3 days. Started Senna last evening. No nausea/vomiting. No fever, chills, CP, SOB LFTs this AM improving. Review of Systems Review of Systems: All systems reviewed & are unremarkable except as noted in HPI & below Physical Exam Constitutional: WD/WN, vitals as above Eyes: PERRL, conjunctivae normal, anicteric sclerae Respiratory: normal respiratory effort, lungs clear to auscultation Cardiovascular: RRR, no murmur, no edema Gastrointestinal (Abdomen): normal bowel sounds, soft, nontender, no hepatosplenomegaly Inspection/Auscultation: + abdomen distended Skin: no rashes, warm and dry Results & Data ([facility]) Vital Signs (Past 12 Hours) Vital Signs Temp Pulse Resp BP Pulse Ox 08/07/20 06:23 37.2 C 72 17 154/93 H 92 08/06/20 23:04 37.5 C 83 19 145/97 H 93
[2020-08-07] MEDS ORDERED: SENNA 8.6 MG TAB PO SCH (09:00)
--- NOTE | 2020-08-07 10:04 | XRay Report ---
KUB HISTORY: Acute generalized abdominal pain with constipation constipation, hx pancreatitis COMPARISON: Chest radiograph 08/05/2020, CT abdomen pelvis 08/03/2020 FINDINGS: Small pleural effusions with bibasilar opacities. No significant fecal retention to suggest constipation. Nonobstructive bowel gas pattern. Mild distention of gas-filled small and large bowel. Large bowel loops measure up to 7.6 cm. Small bowel loops measure up to 3.2 cm. Pelvic basin phlebo liths. No renal calculi identified. No pneumoperitoneum or pneumatosis. No fracture. IMPRESSION: 1. Mild gaseous distention of the large and small bowel suggestive of ileus. 2. No pneumoperitoneum. 3. Small pleural effusions with bibasilar opacities. ACT 112: Negative or not required by law. The above report was generated using voice recognition software. It may contain grammatical, syntax o r spelling errors. Electronically signed by: Viral Vora M.D. 08/07/2020 10:03 AM
--- NOTE | 2020-08-07 14:45 | Hospitalist Progress Note ---
Date of Service August 07, 2020 Assessment & Plan (1) Acute cholecystitis: Presents with acute right upper quadrant pain, elevated LFTs in obstructive pattern, and borderline dilated CBD and dilated intrahepatic biliary ducts With evidence of acute cholecystitis both on CT abdomen/pelvis and RUQ US. MRCP suspicious for filling defects in the CBD, and confirms acute cholecystitis. s/p ERCP 08/03 - shows multiple biliary tree strictures, main duct dilated and 2 small black stones were removed GI suspects possible PSC, also with cystic duct stricture likely cause of acute cholecystitis - Continue IV Zosyn and convert to p.o. antibiotics when taking more consistent oral intake - Marko/LFTs continue to be downtrending therefore holding off on cholecystectomy at this time. Recommend following up with general surgery in [place] after he returns home -Discontinue IV fluids (2) Choledocholithiasis: Status post ERCP as above with stricture dilated and choledocholithiasis removed -Needs follow-up ERCP in 2 months as per GI Follow-up with GI as an outpatient for possible PSC (3) Biliary stricture: As above, GI suspects PSC Will need close outpatient follow-up with GI and PCP once he is discharged as he lives in [place] CD burned for him which has all of his imaging studies including the fluoroscopy from the ERCP on it; also, GI today contacted [facility] and forwarded all the remaining studies -Also recommended he discontinue all outpatient supplements at this time including milk thistle - CHRISTOPHER, Anti-smooth muscle AB, Anti-mitochondrial AB all tested and negative (4) Ileus: With ileus related to acute pancreatitis and also opioid induced KUB with gaseous distention He is now passing small months of stool and flatus but continues to have some lower abdominal pain from bowel distention -Continue MiraLAX BID and increase senna to twice daily -Encouraged ambulation GI advance his diet today to low-fat -Encouraged cessation of opioids and use Tylenol instead Simethicone as needed (5) Post-ERCP acute pancreatitis: Resolved- severe epigastric pain and found to have post-ERCP pancreatitis on evening of 08/03 Lipase back to normal, epigastric pain resolved IV fluids discontinued -Discontinue IV Dilaudid, higher dose hydrocodone (6) Urinary retention: Caballero cath placed 08/04 due to urinary retention. Bladder scan recorded at 516 ml prior to this. Suspect related to opiate pain medication and will avoid tamsulosin at this time as likely can be successfully removed later in the hospitalization. Will treat lack of BM initially and remove caballero cath today as he has had a bowel movement -Trial of void Continue tamsulosin (7) Hypoxia: Notably hypoxic overnight on 08/05. Given Lasix 20mg IV. CXR with atelectasis only, incentive spirometry ordered. Now resolved Courage ambulation Discontinued IV fluids (8) Elevated LFTs: as above, secondary to choledocholithiasis and acute cholecystitis (9) Abdominal pain: As above, secondary to acute aissatou, choledocholithiasis, pancreatitis and ileus Limit opioids and use Tylenol as needed (10) Hyperlipidemia: Continue to hold home statin until LFTs normalized as outpt (11) Macrocytosis without anemia: MCV 105 but not anemic Suspect secondary to EtOH use-has 2-3 drinks daily B12 and folate levels normal (12) DVT prophylaxis: SCDs, add Lovenox SQ 40 mg daily today given prolonged hospital stay and acute inflammation. This was discussed with GI who is okay with it Disposition-continued stay medical/surgical floor, but possible discharge to home tomorrow Full code Admission and Anticipated Discharge Date Admission Date: August 02, 2020 Anticipated date of discharge: 08/08/20 Subjective Patient had a small bowel movement this morning and passing flatus, was doing well all day until he moved around recently and is still having some lower abdominal and mild left flank pain. He has an ileus on x-ray. Caballero catheter is going to be removed here shortly. Denies any nausea or vomiting. He ate his first solid foods today and feels full after half the meal. Denies any chest pain or shortness of breath. He ambulated the halls once today. Review of Systems Review of Systems: All systems reviewed & are unremarkable except as noted in HPI & below Physical Exam Constitutional: WD/WN, vitals as above Neck: trachea midline, no thyromegaly Respiratory: normal respiratory effort, lungs clear to auscultation Cardiovascular: RRR, no murmur, no edema Extremities: no calf tenderness Chest (Breasts): Chest: normal inspection of chest Gastrointestinal (Abdomen): Inspection/Auscultation: abdomen normal to inspection and normal bowel sounds; abdomen not distended P ercussion/Palpation: + abdomen tender (mild, in lower abdomen, no guarding or rebound) and abdomen soft; no guarding and abdomen not rigid Musculoskeletal: Extremities: extremities normal to inspection; no cyanosis and no clubbing Skin: no rashes, warm and dry Neurologic: moves all extremities and awake; no focal motor deficits Psychiatric: A+Ox3, euthymic affect Lymphatic: no lymphedema Results & Data Results & Data ([facility]) Vital Signs (Past 12 Hours) Vital Signs Temp Pulse Resp BP Pulse Ox 08/07/20 06:23 37.2 C 72 17 154/93 H 92 Laboratory Results 08/07/20 08/07/20 08/05/20 Range/Units 06:55 06:55 06:00 WBC 6.96 (4.8-10.8) K/uL RBC 3.42 L (4.7-6.1) M/uL Hgb 12.0 L (14.0-18.0) g/dL Hct 35.3 L (42-52) % MCV 103.2 H (80-100) fL MCH 35.1 H (25-34) pg MCHC 34.0 (32-36) g/dL RDW Std Deviation 46.8 H (36.4-46.3) fL RDW Coeff of Chris 12.4 (11.5-14.5) % Plt Count 214 (130-400) K/uL MPV 9.9 (7.4-10.4) fL Immature Gran % (Auto) 0.1 % Neut % (Auto) 73.2 % Lymph % (Auto) 6.8 % [place] % (Auto) 19.4 % Eos % (Auto) 0.4 % Baso % (Auto) 0.1 % Neut # (Auto) 5.09 (1.4-6.5) K/uL Lymph # (Auto) 0.47 L (1.2-3.4) K/uL [place] # (Auto) 1.35 H (0.11-0.59) K/uL Eos # (Auto) 0.03 (0-0.5) K/uL Baso # (Auto) 0.01 (0-0.2) K/uL Immature Gran # (Auto) 0.01 (0.00-0.02) K/uL Sodium 135 L (136-145) mmol/L Potassium 3.2 L (3.5-5.1) mmol/L Chloride 98 (98-107) mmol/L Carbon Dioxide 33 H (21-32) mmol/L Anion Gap 4.0 (3-11) BUN 11 (7-18) mg/dl Creatinine 0.73 (0.6-1.4) mg/dl Est Cr Clr Drug Dosing 135.7 ml/min Est GFR ( Amer) 121.0 Est GFR (Non-Af Amer) 104.4 BUN/Creatinine Ratio 15.0 (10-20) Glucose 125 H (70-99) mg/dl Calcium 8.1 L (8.5-10.1) mg/dl Total Bilirubin 2.5 H (0.2-1) mg/dl Direct Bilirubin 1.5 H (0-0.2) mg/dl AST 48 H (15-37) U/L ALT 221 H (12-78) U/L Alkaline Phosphatase 133 H (45-117) U/L Total Protein 5.7 L (6.4-8.2) gm/dl Albumin 2.2 L (3.4-5.0) gm/dl CHRISTOPHER Screen NEGATIVE (NEGATIVE) Anti-Mitochondrial Ab NEGATIVE (NEGATIVE) Anti-Smooth Muscle Ab NEGATIVE (NEGATIVE) Diagnostic Findings KUB X-Ray 08/07/20 09:08 KUB HISTORY: Acute generalized abdominal pain with constipation constipation, hx pancreatitis COMPARISON: Chest radiograph 08/05/2020, CT abdomen pelvis 08/03/2020 FINDINGS: Small pleural effusions with bibasilar opacities. No significant fecal retention to suggest constipation. Nonobstructive bowel gas pattern. Mild distention of gas-filled small and large bowel. Large bowel loops measure up to 7.6 cm. Small bowel loops measure up to 3.2 cm. Pelvic basin phleboliths. No renal calculi identified. No pneumoperitoneum or pneumatosis. No fracture. IMPRESSION: 1. Mild gaseous distention of the large and small bowel suggestive of ileus. 2. No pneumoperitoneum. 3. Small pleural effusions with bibasilar opacities. ACT 112: Negative or not required by law. The above report was generated using voice recognition software. It may contain grammatical, syntax or spelling errors. Electronically signed by: Viral Vora M.D. 08/07/2020 10:03 AM PG Care Time/CCT Total # of Minutes Spent Total Time Spent with Patient: Total time spent is greater than 50% in coordination of care (as documented) at patient's floor/unit and/or counseling patient: Coding Level of Care Code 25830 Subseq Hosp Care Lvl 3 Diagnoses Acute cholecystitis K81.0 Choledocholithiasis K80.50 Biliary stricture K83.1 Ileus K56.7 Post-ERCP acute pancreatitis K91.89; K85.90 Urinary retention R33.9 Hypoxia R09.02 Elevated LFTs R79.89 Abdominal pain R10.11 Abdominal location: right upper quadrant Hyperlipidemia E78.5 Hyperlipidemia type: unspecified Macrocytosis without anemia D75.89 DVT prophylaxis Z29.9 (1) Abdominal pain Abdominal location: right upper quadrant Qualified Code(s): R10.11 - Right upper quadrant pain (2) Hyperlipidemia Hyperlipidemia type: unspecified Qualified Code(s): E78.5 - Hyperlipidemia, unspecified
[2020-08-07] MEDS ORDERED: POTASSIUM CHLORIDE CRTAB 20 MEQ TABCR PO STA (14:54)
[2020-08-07] MEDS ORDERED: ENOXAPARIN INJ 40 MG/0.4 ML SYR SQ SCH (15:00)
[2020-08-07] MEDS: ACETAMINOPHEN 500 MG TAB PO PRN ×2 (15:20→20:51)
--- NOTE | 2020-08-07 16:09 | Surgery Progress Note ---
Date of Service August 07, 2020 Assessment & Plan (1) Acute cholecystitis: pt is a 54 year-old male who was admitted to hospital for acute abdominal pain with acute cholecystitis and abdominal LFTs. S/p ERCP with biliary ductal balloon dilatation and stone extraction, NO STENT Placement, biopsies obtained (awaiting results) Concern for PSC given stricture of distal 1/3 of common duct. Developed post ERCP pancreatitis as of note, CT scan with contrast post ERCP showing contrast in gall bladder which proves cystic duct is not obstructed. T. bili, LFTS, and lipase continue to improve T. bili 7.3--> 4.1 --> 2.5 d. marion 4.0 --> 2.7 --> 1.5 AST 230 --> 86 --> 48 ALT 582 --> 320 --> 221 ALK Phos 206 --> 139 --> 133 Lipase 2428 --> 346 (post ERCP pancreatitis , lipase 10,000 08/03/20) KUB today showing distention of small bowel and colon consistent with ileus Plan: Given that patient's pain has improved, clinically improving, and total bilirubin, wbc, and lfts improved do not feel that cholecystectomy is urgent at this time. Patient would like to get back home to [place] and have further GI/surgery evaluation/management as appropriate. Given the ileus on KUB, would recommend clear liquids if continues to have pain instead of low fiber diet PO Tylenol and [place] as needed for pain, avoid IV dilaudid Bowel regimen as ordered by medicine and GI Discontinue Pike catheter to see if patient can void on his own Continue IV antibiotics, transition to oral once taking po well Continue medical management Discussed with Dr. Franklin who is to evaluate patient later today Admission and Anticipated Discharge Date Admission Date: August 02, 2020 Subjective having some abdominal pain and distention today felt good this morning, has small bowel movement and flatus feels full after eating low fiber diet for lunch ambulating hallway Physical Exam Constitutional: WD/WN, vitals as above Eyes: icteric Respiratory: normal respiratory effort; no respiratory distress and no labored breathing Gastrointestinal (Abdomen): Inspection/Auscultation: abdomen normal to inspection and + abdomen distended (mild) Percussion/Palpation: abdomen soft; abdomen nontender, no guarding and abdomen not rigid Skin: no rashes, warm and dry Psychiatric: A+Ox3, euthymic affect Results & Data ([facility]) Vital Signs (Past 12 Hours) Vital Signs Temp Pulse Resp BP Pulse Ox 08/07/20 15:51 36.9 C 82 18 153/91 H 95 08/07/20 06:23 37.2 C 72 17 154/93 H 92 Laboratory Results 08/07/20 08/07/20 Range/Units 06:55 06:55 WBC 6.96 (4.8-10.8) K/uL RBC 3.42 L (4.7-6.1) M/uL Hgb 12.0 L (14.0-18.0) g/dL Hct 35.3 L (42-52) % MCV 103.2 H (80-100) fL MCH 35.1 H (25-34) pg MCHC 34.0 (32-36) g/dL RDW Std Deviation 46.8 H (36.4-46.3) fL RDW Coeff of Chris 12.4 (11.5-14.5) % Plt Count 214 (130-400) K/uL MPV 9.9 (7.4-10.4) fL Immature Gran % (Auto) 0.1 % Neut % (Auto) 73.2 % Lymph % (Auto) 6.8 % [place] % (Auto) 19.4 % Eos % (Auto) 0.4 % Baso % (Auto) 0.1 % Neut # (Auto) 5.09 (1.4-6.5) K/uL Lymph # (Auto) 0.47 L (1.2-3.4) K/uL [place] # (Auto) 1.35 H (0.11-0.59) K/uL Eos # (Auto) 0.03 (0-0.5) K/uL Baso # (Auto) 0.01 (0-0.2) K/uL Immature Gran # (Auto) 0.01 (0.00-0.02) K/uL Sodium 135 L (136-145) mmol/L Potassium 3.2 L (3.5-5.1) mmol/L Chloride 98 (98-107) mmol/L Carbon Dioxide 33 H (21-32) mmol/L Anion Gap 4.0 (3-11) BUN 11 (7-18) mg/dl Creatinine 0.73 (0.6-1.4) mg/dl Est Cr Clr Drug Dosing 135.7 ml/min Est GFR ( Amer) 121.0 Est GFR (Non-Af Amer) 104.4 BUN/Creatinine Ratio 15.0 (10-20) Glucose 125 H (70-99) mg/dl Calcium 8.1 L (8.5-10.1) mg/dl Total Bilirubin 2.5 H (0.2-1) mg/dl Direct Bilirubin 1.5 H (0-0.2) mg/dl AST 48 H (15-37) U/L ALT 221 H (12-78) U/L Alkaline Phosphatase 133 H (45-117) U/L Total Protein 5.7 L (6.4-8.2) gm/dl Albumin 2.2 L (3.4-5.0) gm/dl Diagnostic Findings KUB HISTORY: Acute generalized abdominal pain with constipation constipation, hx pancreatitis COMPARISON: Chest radiograph 08/05/2020, CT abdomen pelvis 08/03/2020 FINDINGS: Small pleural effusions with bibasilar opacities. No significant fecal retention to suggest constipation. Nonobstructive bowel gas pattern. Mild distention of gas-filled small and large bowel. Large bowel loops measure up to 7.6 cm. Small bowel loops measure up to 3.2 cm. Pelvic basin phleboliths. No renal calculi identified. No pneumoperitoneum or pneumatosis. No fracture. IMPRESSION: 1. Mild gaseous distention of the large and small bowel suggestive of ileus. 2. No pneumoperitoneum. 3. Small pleural effusions with bibasilar opacities.
[2020-08-07] MEDS: SENNA 8.6 MG TAB PO SCH (20:48)
[2020-08-08] MEDS: ACETAMINOPHEN 500 MG TAB PO PRN (04:43)
[2020-08-08] MEDS: PIPERACILLIN/TAZOBACTAM 3.375 GM in DEXTROSE 5% 100 ML IV SCH (04:43)
[2020-08-08 06:01] LABS: Basophils # (auto) 0.01 K/uL (0-0.2); Basophils % (auto) 0.1 %; Eosinophils # (auto) 0.05 K/uL (0-0.5); Eosinophils % (auto) 0.6 %; Hemoglobin 12.1 g/dL (14.0-18.0); Immature Granulocytes # (auto) 0.02 K/uL (0.00-0.02); Immature Granulocytes % (auto) 0.3 %; Lymphocytes # (auto) 0.66 K/uL (1.2-3.4); Lymphocytes % (auto) 8.4 %; Mean Corpuscular Hemoglobin 34.6 pg (25-34); Mean Corpuscular Hgb Conc 34.6 g/dL (32-36); Mean Platelet Volume 9.4 fL (7.4-10.4); Monocytes # (auto) 1.51 K/uL (0.11-0.59); Monocytes % (auto) 19.3 %; Neutrophils # (auto) 5.57 K/uL (1.4-6.5); Neutrophils % (auto) 71.3 %; Platelet Count 258 K/uL (130-400); RDW Coefficient of Variation 12.3 % (11.5-14.5); RDW Standard Deviation 44.7 fL (36.4-46.3); White Blood Count 7.82 K/uL (4.8-10.8)
[2020-08-08 06:38] LABS: Albumin Level 2.3 gm/dl (3.4-5.0); BUN Creatinine Ratio 15.9 (10-20); Calcium 8.9 mg/dl (8.5-10.1); Creatinine Clr Calc Pharmacy 152.4 ml/min; Est GFR (African American) 126.9 ml/min; Est GFR (Non-African American) 109.5 ml/min; Magnesium 2.3 mg/dl (1.8-2.4); Potassium 3.3 mmol/L (3.5-5.1)
[2020-08-08 06:57] LABS: Bilirubin,Total 1.8 mg/dl (0.2-1); Phosphorus 2.4 mg/dl (2.5-4.9); Thyroid Stimulating Hormone 1.93 uIu/ml (0.300-4.500); Total Protein 6.2 gm/dl (6.4-8.2)
[2020-08-08] MEDS: POLYETHYLENE (MIRALAX) 17 GM PACK PO SCH (07:48)
[2020-08-08] MEDS: SENNA 8.6 MG TAB PO SCH (07:49)
--- NOTE | 2020-08-08 09:07 | Gastroenterology Progress Note ---
Date of Service August 08, 2020 Assessment & Plan (1) Biliary stricture: 54 year old male admitted with acute cholecystitis, biliary obstruction s/p ERCP w/ exam concerning for PSC with dominant stricture at lower third of the main bile duct (cytology without malignancy), choledocholithiasis s/p biliary sphincterotomy and balloon extraction, post-procedure imaging concerning for peripancreatic stranding and fluid consistent with acute pancreatitis w/o fluid collection Clinically improving, tolerating low fat diet, moving bowels well - No GI contraindication to discharge - Constipation - OOB to chair - OOB walking - Miralax 1 capful twice daily - Treat the pancreatitis - Ok to stop IV fluids as tolerating clear liquids - Antiemetics PRN - Analgesia PRN - Low fat diet as tolerated - Biliary stricture, choledocholithiasis - Cytology negative - Complete a 10 days course of PO ABX. - Monitor LFTs. - Cholecystitis - Will discuss with general surgery - Establish with GI and hepatology back home - Repeat ERCP in 2 months to treat the left main duct stricture, may consider a spyglass exam or EUS - Perform a colonoscopy electively as OP. Recall as needed. Thank you for allowing us to participate in the care of this patient. Please call with any acute changes, questions or concerns. Please see addendum below with additional recommendation from my supervising physician. Admission and Anticipated Discharge Date Admission Date: August 02, 2020 Supervising Physician Co-Signing Physician Notes Attending attestation I have seen, examined this patient, and agree with the findings and above by our mid-level provider ADALI Chun, with the following additions Patient improved, in regards to both pain as well as symptomatology. Labs have improved today. Will need prompt follow-up as an outpatient locally likely with [facility] for likely PSC. Agree with holding on of cholecystectomy until discussed as outpt Subjective Pt was seen and evaluated, chart reviewed. Moving bowels. Tolerating low fat, regular consistency diet. Abd pain is greatly improved. LFTs continue to improve. Review of Systems Review of Systems: All systems reviewed & are unremarkable except as noted in HPI & below Physical Exam Constitutional: WD/WN, vitals as above well nourished and average body habitus; no acute distress Neck: trachea midline Respiratory: normal respiratory effort, lungs clear to auscultation Cardiovascular: RRR, no murmur, no edema Gastrointestinal (Abdomen): normal bowel sounds, soft, nontender, no hepatosplenomegaly Skin: no rashes, warm and dry Results & Data ([facility]) Vital Signs (Past 12 Hours) Vital Signs Temp Pulse Resp BP Pulse Ox 08/08/20 07:50 37.0 C 62 16 150/97 H 96 08/07/20 23:23 37.1 C 59 L 18 150/96 H 95
--- NOTE | 2020-08-08 09:52 | Surgery Progress Note ---
Date of Service August 08, 2020 Assessment & Plan (1) Acute cholecystitis: pt is a 54 year-old male who was admitted to hospital for acute abdominal pain with acute cholecystitis and abdominal LFTs. S/p ERCP with biliary ductal balloon dilatation and stone extraction, NO STENT Placement, cytology washings showing no malignant cells, Concern for PSC given stricture of distal 1/3 of common duct. Developed post ERCP pancreatitis as of note, CT scan with contrast post ERCP showing contrast in gallbladder which proves cystic duct is not obstructed. T. bili, LFTS, and lipase continue to improve T. bili 7.3--> 4.1 --> 2.5 --> 1.8 d. marion 4.0 --> 2.7 --> 1.5 --> 1.0 AST 230 --> 86 --> 48 --> 37 ALT 582 --> 320 --> 221 --> 181 ALK Phos 206 --> 139 --> 133 --> 150 Lipase 2428 --> 346 (post ERCP pancreatitis , lipase 10,000 08/03/20) KUB 08/07/20 showed distention of small bowel and colon consistent with ileus Plan: Given that patient's pain has improved, clinically improving, and total bilirubin, wbc, and lfts improved, do not feel that cholecystectomy is urgent at this time. Plan is for patient to get established with PCP and PSC/instructor creeler back at home for further management. Okay from surgical standpoint for discharge Advised low fat diet Dr. Anderson has seen and examined pt, agrees with above. Admission and Anticipated Discharge Date Admission Date: August 02, 2020 Subjective feeling much better today, still having abdominal pain rating 3-4/10. Moving his bowels and tolerating low fiber diet. no nausea or vomiting still feels a little bloated urinating well without Pike catheter waiting for Dr. Berkowitz to see him today for possible discharge. States plan is to establish with PCP back at home and Dr. Fields talked with PSC /instructor creeler at [place] for patient to get established with back at home. [employer]anner met with patient yesterday Physical Exam Constitutional: WD/WN, vitals as above no acute distress and not ill appearing Respiratory: normal respiratory effort; no respiratory distress and no labored breathing Gastrointestinal (Abdomen): Inspection/Auscultation: abdomen normal to inspection and normal bowel sounds; abdomen not distended Perc ussion/Palpation: abdomen soft; abdomen nontender, no guarding and abdomen not rigid Skin: no rashes, warm and dry + jaundice (sclerae but improved) Psychiatric: A+Ox3, euthymic affect Results & Data ([facility]) Vital Signs (Past 12 Hours) Vital Signs Temp Pulse Resp BP Pulse Ox 08/08/20 07:50 37.0 C 62 16 150/97 H 96 08/07/20 23:23 37.1 C 59 L 18 150/96 H 95 Laboratory Results 08/08/20 08/08/20 Range/Units 05:24 05:24 WBC 7.82 (4.8-10.8) K/uL RBC 3.50 L (4.7-6.1) M/uL Hgb 12.1 L (14.0-18.0) g/dL Hct 35.0 L (42-52) % MCV 100.0 (80-100) fL MCH 34.6 H (25-34) pg MCHC 34.6 (32-36) g/dL RDW Std Deviation 44.7 (36.4-46.3) fL RDW Coeff of Chris 12.3 (11.5-14.5) % Plt Count 258 (130-400) K/uL MPV 9.4 (7.4-10.4) fL Immature Gran % (Auto) 0.3 % Neut % (Auto) 71.3 % Lymph % (Auto) 8.4 % [place] % (Auto) 19.3 % Eos % (Auto) 0.6 % Baso % (Auto) 0.1 % Neut # (Auto) 5.57 (1.4-6.5) K/uL Lymph # (Auto) 0.66 L (1.2-3.4) K/uL [place] # (Auto) 1.51 H (0.11-0.59) K/uL Eos # (Auto) 0.05 (0-0.5) K/uL Baso # (Auto) 0.01 (0-0.2) K/uL Immature Gran # (Auto) 0.02 (0.00-0.02) K/uL Sodium 136 (136-145) mmol/L Potassium 3.3 L (3.5-5.1) mmol/L Chloride 102 (98-107) mmol/L Carbon Dioxide 27 (21-32) mmol/L Anion Gap 7.0 (3-11) BUN 10 (7-18) mg/dl Creatinine 0.65 (0.6-1.4) mg/dl Est Cr Clr Drug Dosing 152.4 ml/min Est GFR ( Amer) 126.9 ml/min Est GFR (Non-Af Amer) 109.5 ml/min BUN/Creatinine Ratio 15.9 (10-20) Glucose 106 H (70-99) mg/dl Calcium 8.9 (8.5-10.1) mg/dl Phosphorus 2.4 L (2.5-4.9) mg/dl Magnesium 2.3 (1.8-2.4) mg/dl Total Bilirubin 1.8 H (0.2-1) mg/dl Direct Bilirubin 1.0 H (0-0.2) mg/dl AST 37 (15-37) U/L ALT 181 H (12-78) U/L Alkaline Phosphatase 150 H (45-117) U/L Total Protein 6.2 L (6.4-8.2) gm/dl Albumin 2.3 L (3.4-5.0) gm/dl TSH 1.930 (0.300-4.500) uIu/ml
[2020-08-08] MEDS ORDERED: POTASSIUM CHLORIDE CRTAB 20 MEQ TABCR PO STA (10:03)
[2020-08-08] MEDS ORDERED: POTASSIUM PHOS 3 MMOL/1 ML INFUSION IV STA (10:03)
[2020-08-08] MEDS ORDERED: POTASSIUM PHOSPHATE 15 MMOL in SODIUM CHLORIDE 0.9% 250 ML IV SCH (10:30)
--- NOTE | 2020-08-08 10:40 | Discharge Summary ---
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 Initially, he waited to see if it would go away and tried to eat some breakfast but then it got much worse and became severe. Pain is nonradiating, feels like a fist punching into his gut, and was associated with sweating, but no nausea or vomiting. He had a bowel movement this morning that he reports was "dry" and unusual for him but no blood. He denies any fevers or chills. He has no prior history of gallbladder or pancreas problems. He does drink 2 or 3 alcoholic drinks every day. In the ER, he was found to have elevated LFTs and an obstructive pattern, normal lipase, and CT of the abdomen/pelvis showed mildly distended gallbladder with mild gallbladder wall thickening and borderline CBD enlargement with borderline CBD wall thickening, no cholelithiasis noted, and mildly prominent central intrahepatic biliary ducts. Gallbladder ultrasound showed distended gallbladder with gallbladder wall thickening, no gallstones, and CBD was only 3 mm in diameter, and trace perihepatic ascites. In the ER, he received IV Dilaudid x2 doses, 1 L normal saline, and IV Zofran, as well as IV Zosyn. He will be admitted for acute cholecystitis with suspected choledocholithiasis. Principal Diagnosis Acute cholecystitis with choledocholithiasis, Post-ERCP pancreatitis, Urinary retention Discharge Exam Constitutional WD/WN, vitals as above Eyes + scleral abnormality (Scleral icterus) ENMT external ear and nose normal, oropharynx normal Neck trachea midline, no thyromegaly Respiratory normal respiratory effort, lungs clear to auscultation Cardiovascular RRR, no murmur, no edema Extremities: no calf tenderness Chest (Breasts) Chest: normal inspection of chest Gastrointestinal (Abdomen) normal bowel sounds, soft, nontender, no hepatosplenomegaly Musculoskeletal Extremities: extremities normal to inspection; no cyanosis and no clubbing Skin no rashes, warm and dry Neurologic moves all extremities and awake; no focal motor deficits Psychiatric A+Ox3, euthymic affect Lymphatic no lymphedema Discharge Data Allergies Allergy/AdvReac Type Severity Reaction Status Date / Time No Known Allergies Allergy Unverified 08/02/20 14:15 Consultations 08/02/20 15:56 ED Decision to Admit Stat 08/02/20 17:32 Consult Gastroenterology Routine 08/02/20 18:17 Consult General Surgery Routine 08/03/20 10:12 Burn CD for patient Stat Procedures Performed Operation Date: 08/03/20 07:30 Actual Procedures p Endoscopic Retrograde Cholangiopancreatography(Not Applicable) - Asuncion Menendez MD Ordered Studies 08/02/20 12:12 CT abd pelvis IV con only Stat 08/02/20 13:45 US gallbladder Stat 08/02/20 17:32 MR MRCP Stat 08/03/20 FL ERCP biliary ductal Routine 08/03/20 20:07 CT abd pelvis IV con only Urgent Abdomen/Pelvis CT 08/02/20 12:12 CT abd pelvis IV con only CLINICAL HISTORY: Epigastric pain COMPARISON STUDY: None. TECHNIQUE: Patient was scanned in a dynamic helical fashion during intravenous administration of 89 cc of Optiray 300 A dose lowering technique was utilized adhering to the principles of ALARA. CT DOSE: 511.12 mGy.cm FINDINGS: Lower chest: There are bibasilar atelectatic changes. Liver: There is mild hepatic steatosis. No focal hepatic masses are visualized. There is minimal ductal prominence. Gallbladder: Mildly distended. There is mild gallbladder wall thickening. No calculi are visualized on CT scanning. There is borderline common bile duct enlargement. There is borderline common bile duct wall thickening. Spleen: Normal in size and attenuation. Pancreas: Unremarkable. Adrenal glands: Unremarkable. Kidneys: There is symmetric renal cortical enhancement. The kidneys are normal in size without hydronephrosis. Bowel: There are no transition zones indicate bowel obstruction. There is no evidence of acute diverticulitis. The appendix is not visualized with certainty. There are no findings to indicate acute appendicitis. Peritoneum: There is trace free pelvic fluid. There is no free intraperitoneal air. Vasculature: The abdominal aorta is normal in course and caliber. Adenopathy: None. Pelvic viscera: The bladder, and pelvic viscera are unremarkable. Skeletal structures: No destructive osseous lesions are seen. IMPRESSION: 1. No evidence of bowel obstruction. No evidence of free air 2. Mild gallbladder distention, and mild gallbladder wall thickening. Borderline common bile duct enlargement and wall thickening. Minimally prominent central intrahepatic biliary ducts. Clinical correlation with regards to cholecystitis is recommended. A biliary ultrasound should be considered in follow-up. ACT 112: Negative or not required by law. Electronically signed by: Jacob Jose M.D. 08/02/2020 1:38 PM Gallbladder Ultrasound 08/02/20 13:45 ULTRASOUND RIGHT UPPER QUADRANT ABDOMEN CLINICAL HISTORY: Right upper quadrant abdominal pain. COMPARISON STUDY: Abdominal CT performed the same day 08/02/2020. TECHNIQUE: Real-time, grayscale, and color flow sonography of the right upper quadrant of the abdomen was performed. Images are reviewed in the transverse and longitudinal planes. FINDINGS: Liver: The liver is mildly enlarged and demonstrates heterogeneously increased echotexture consistent with hepatic steatosis. There is no intrahepatic biliary ductal dilatation. The main portal vein is patent. Gallbladder: The gallbladder is is distended. The gallbladder wall is mildly thickened and edematous, measuring up to 4 mm. No shadowing gallstones are ident ified. A sonographic Gastelum's sign is reportedly absent; however, the patient received analgesia. The common bile duct measures up to 0.3 cm in diameter. Pancreas: Visualized portions of the pancreatic head and body are normal in appearance. Right kidney: Survey images of the right kidney demonstrate normal size and echotexture. There is no hydronephrosis. Ascites: There is trace prostatic ascites. IMPRESSION: 1. Abnormal gallbladder as above. Although no shadowing gallstones are identified, findings are concerning for acute cholecystitis. Clinical and laboratory correlation will be required. If clinically warranted a nuclear hepatobiliary scan could be considered for further assessment. 2. Hepatomegaly and hepatic steatosis. 3. Trace perihepatic ascites. ACT 112: Negative or not required by law. Electronically signed by: Leif Granda M.D. 08/02/2020 3:42 PM Cholangiopancreatography MRI 08/02/20 17:32 MRCP CLINICAL HISTORY: Right upper quadrant abdominal pain. Abnormal CT and ultrasound. COMPARISON STUDY: Abdominal CT and abdominal ultrasound performed the same day 08/02/2020. TECHNIQUE: Abdominal MRCP is performed utilizing various T2-weighted sequences in the axial and coronal planes. IV contrast was not administered for this examination. 3-D reformats are created and assessed. FINDINGS: The gallbladder is distended. The gallbladder wall is thickened and edematous and there is trace pericholecystic fluid. No gallstones are identified within the gallbladder lumen. There is mild intrahepatic biliary ductal dilatation. The common bile duct at the hepatic hilum measures up to 7 mm in diameter. There is an apparent filling defect within the midportion of the common bile duct (coronal image #72). The distal common duct appears normal in caliber at the ampulla. This could represent choledocholithiasis or stricture. The intra and extrahepatic bile ducts demonstrate a mildly beaded appearance. The pancreatic duct is normal in caliber. The liver is mildly enlarged and steatotic. The unenhanced spleen, adrenal glands, kidneys, and pancreas are grossly normal. The abdominal aorta is normal in caliber. There is no evidence of bowel obstruction. There is trace perihepatic ascites. The bony structures are intact as imaged. No pleural effusion is identified. IMPRESSION: 1. Abnormal gallbladder, typical in appearance for acute cholecystitis. 2. There is mild intra and extrahepatic biliary ductal dilatation. 3. There is an apparent filling defect within the midportion of the common bile duct which could represent choledocholithiasis or stricture. Choledocholithiasis is favored. Surgical or endoscopic assessment is recommended. 4. The intra and extrahepatic bile ducts are slightly beaded in appearance. This is nonspecific and of indeterminant significance. Electronically signed by: Leif Granda M.D. 08/02/2020 8:21 PM Endo Retro Cholangiopancreatogram 08/03/20 00:00 [place] ERCP biliary ductal CLINICAL HISTORY: ERCP TO BE DONE COMPARISON STUDY: CT of the abdomen and pelvis, MRCP and right upper quadrant ultrasound August 02, 2020. FLUOROSCOPY TIME: 4 minutes and 5 seconds. FLUOROSCOPIC IMAGES: 19 FINDINGS: Fluoroscopy was provided during ERCP. There is cannulation of the common bile duct. Multiple filling defects within the common bile duct reflect choledocholithiasis. Balloon sweep through the common bile duct was performed. Note is made of multifocal irregularity of the intra and extra hepatic bile ducts with a beaded appearance. IMPRESSION: 1. Fluoroscopy provided during ERCP. 2. Choledocholithiasis. In addition, multifocal irregularity of the intra and extrahepatic bile ducts suggestive of strictures with associated dilatation of intrahepatic bile ducts. The findings raise the possibility of primary sclerosing cholangitis. ACT 112: Negative or not required by law. Electronically signed by: Ladarius Donohue M.D. 08/03/2020 9:35 AM Abdomen/Pelvis CT 08/03/20 20:07 CT SCAN OF THE ABDOMEN AND PELVIS WITH IV CONTRAST CLINICAL HISTORY: Generalized abdominal pain status post ERCP. COMPARISON STUDY: Abdominal CT dated 08/02/2020. MRCP dated 08/02/2020. TECHNIQUE: Following the IV administration of 84 cc of Optiray 300, CT scan of the abdomen and pelvis is performed from the lung bases to the proximal femora. Images are reviewed in the axial, sagittal, and coronal planes. IV contrast was administered without complication. A dose lowering technique was utilized adheri ng to the principles of ALARA. CT DOSE: 472.26 mGy.cm FINDINGS: Lung bases: The heart is normal in size and without pericardial effusion. The lung bases are clear noting dependent atelectasis. Liver: The contrast-enhanced liver is normal in size, contour, and attenuation. There is mild intrahepatic biliary ductal dilatation. The hepatic veins and portal veins are patent. Gallbladder: The gallbladder is mildly distended and filled with IV contrast. Noting scattered foci of atherosclerotic calcification there is mild wall thickening and enhancement of the common bile duct. Spleen: Normal in size and attenuation. Pancreas: The pancreas is mildly enlarged and edematous. There is peripancreatic stranding and fluid consistent with acute pancreatitis. The gland enhances homogeneously. The splenic vein is patent. No organized peripancreatic fluid collection is identified. Adrenal glands: Unremarkable. Kidneys: The contrast enhanced kidneys are normal in size and without hydr onephrosis. The kidneys enhance symmetrically. Abdominal vasculature: The abdominal aorta is normal in course and caliber. Bowel: There is no bowel obstruction. The appendix is normal as visualized. Peritoneum: There is a small volume of abdominopelvic ascites. No intraperitoneal free air is identified. Lymphadenopathy: None. Pelvic viscera: The bladder wall appears mildly thickened. The prostate and seminal vesicles are normal as imaged. Skeletal structures: There is mild lumbosacral spondylosis. A benign-appearing and expansile fat attenuation lesion in the right iliac wing is unchanged and may resent a hemangioma. A hemangioma is also seen in the body of L1. No lytic or blastic lesions are seen. IMPRESSION: 1. Findings are consistent with acute pancreatitis. Correlate with clinical findings and serum amylase/lipase levels. 2. The pancreas enhances homogeneously. No organized peripancreatic fluid collection is identified. 3. The gallbladder is mildly distended and filled with contrast consistent with recent ERCP. 4. Mild wall thickening and enhancement of the wall of the common bile duct is nonspecific and may be related to recent procedure. 5. Mild intrahepatic biliary ductal dilatation persists. 6. Small volume of abdominopelvic ascites. 7. The bladder wall appears mildly thickened. Correlate with clinical findings and urinalysis. 8. Additional findings as above. ACT 112: Negative or not required by law. Electronically signed by: Leif Granda M.D. 08/04/2020 7:36 AM Chest X-Ray 08/05/20 19:16 XR chest 1V portable CLINICAL HISTORY: hypoxia COMPARISON STUDY: No previous studies for comparison. FINDINGS: There is no pneumothorax. There is a small left pleural effusion with left basilar opacity. Right basilar opacity favors atelectasis. Cardiac size is at the upper limits of normal. There is no evidence for pulmonary edema. Lung volumes are mildly diminished. IMPRESSION: 1. Small left pleural effusion with left basilar opacity that favors atelectasis. Consolidation could appear similar although is considered less likely. 2. Right basilar opacity consistent with atelectasis. 3. Mildly diminished lung volumes. ACT 112: Negative or not required by law. Electronically signed by: Ladarius Donohue M.D. 08/05/2020 8:31 PM KUB X-Ray 08/07/20 09:08 KUB HISTORY: Acute generalized abdominal pain with constipation constipation, hx pancreatitis COMPARISON: Chest radiograph 08/05/2020, CT abdomen pelvis 08/03/2020 FINDINGS: Small pleural effusions with bibasilar opacities. No significant fecal retention to suggest constipation. Nonobstructive bowel gas pattern. Mild distention of gas-filled small and large bowel. Large bowel loops measure up to 7.6 cm. Small bowel loops measure up to 3.2 cm. Pelvic basin phleboliths. No renal calculi identified. No pneumoperitoneum or pneumatosis. No fracture. IMPRESSION: 1. Mild gaseous distention of the large and small bowel suggestive of ileus. 2. No pneumoperitoneum. 3. Small pleural effusions with bibasilar opacities. ACT 112: Negative or not required by law. The above report was generated using voice recognition software. It may contain grammatical, syntax or spelling errors. Electronically signed by: Viral Vora M.D. 08/07/2020 10:03 AM Hospital Course (1) Acute cholecystitis: Presents with acute right upper quadrant pain, elevated LFTs in obstructive pattern, and borderline dilated CBD and dilated intrahepatic biliary ducts With evidence of acute cholecystitis both on CT abdomen/pelvis and RUQ US. MRCP suspicious for filling defects in the CBD, and confirms acute cholecystitis. s/p ERCP 08/03 - shows multiple biliary tree strictures, main duct was dilated via procedure (no stent placed) and 2 small black stones were removed GI suspects possible PSC, also with cystic duct stricture likely cause of acute cholecystitis - received IV Zosyn and convert to p.o. antibiotics on discharge with Cipro and Flagyl to complete 10 day course - Marko/LFTs continue to be downtrending therefore Surgeon held off on cholecystectomy at this time. Recommend following up with general surgery in [place] after he returns home Doing well, shabnam low fat diet, moving bowels, afebrile prior to discharge (2) Choledocholithiasis: Status post ERCP as above with stricture dilated and choledocholithiasis removed -Needs follow-up ERCP in 2 months as per GI Follow-up with GI as an outpatient for possible PSC (3) Biliary stricture: As above, GI suspects PSC Will need close outpatient follow-up with GI and PCP once he is discharged as he lives in [place] CD burned for him which has all of his imaging studies including the fluoroscopy from the ERCP on it; also, GI today contacted [facility] and forwarded all the remaining studies -Also recommended he discontinue all outpatient supplements at this time including milk thistle - CHRISTOPHER, Anti-smooth muscle AB, Anti-mitochondrial AB all tested and negative Establish with GI and hepatology back home - Repeat ERCP in 2 months to treat the left main duct stricture, may consider a spyglass exam or EUS - Perform a colonoscopy electively as OP. (4) Ileus: With ileus related to acute pancreatitis and also opioid induced-now resolved prior to discharge after treatment with senna, Miralax, ambulation, reduction in opioid use KUB with gaseous distention (5) Post-ERCP acute pancreatitis: Resolved- severe epigastric pain and found to have post-ERCP pancreatitis on evening of 08/03 Lipase back to normal, epigastric pain resolved IV fluids discontinued (6) Urinary retention: Pike cath placed 5/9 due to urinary retention. Bladder scan recorded at 516 ml prior to this. Suspect related to opiate pain medication -Pike removed the day prior to discharge and was voiding without difficulty (7) Hypoxia: Notably hypoxic overnight on 08/05. Given Lasix 20mg IV and IVFs discontinued (for pancreatitis). CXR with atelectasis only, incentive spirometry ordered. Now resolved (8) Elevated LFTs: as above, secondary to choledocholithiasis and acute cholecystitis-now significantly improved on day of discharge f/u with PCP, GI (9) Abdominal pain: As above, secondary to acute aissatou, choledocholithiasis, pancreatitis and ileus now resolved (10) Hyperlipidemia: Continue to hold home statin until LFTs normalized as outpt (11) Macrocytosis without anemia: MCV 105 but not anemic Suspect secondary to EtOH use-has 2-3 drinks daily B12 and folate levels normal advised cessation of EtOH (12) DVT prophylaxis: SCDs, add Lovenox SQ 40 mg daily advised VIJAY hose and frequent ambulation on car ride back to [place] on day of discharge Disposition-dc to home Full code Total Time Total Time Spent Total Time Spent (In Minutes): 35 min Total Time Includes: Examination of the Patient, Discharge Planning and Med ication Reconciliation Discharge Plan Discharge Items Patient Disposition: Home - Self-Care Reason For Visit: ACUTE CHOLECYSTITIS Discharge Diagnosis: Acute cholecystitis, Choledocholithiasis, biliary stricture, Post-ERCP pancreatitis, ileus Condition on Discharge: Good Activity: As commented below Lifting: Gradually increase as tolerated Bathing: No limitations Exercise/Sports: Gradually increase as tolerated Driving/Machine Use: No driving if taking hydrocodone Weightbearing: Full weightbearing Non-emergency contact: Primary Care Provider, Surgeon and Welfare Case Worker Call non-emergency contact if: you have any medication questions, your symptoms worsen, your pain is not controlled, your pain is worsening, your pain is unusual for you, your pain is concerning for you, you have a fever and your temperature is above 101 Follow-up/Referrals: PCPADELSO [Primary Care Provider] - Diet: Low Fat Addtl Attending Provider Instructions: Please finish out the course of antibiotics for the gallbladder infection with Cipro and Flagyl for 3 more days. You can take hydrocodone for moderate pain and tylenol for mild pain. Please follow up with your PCP, and get established with the GI/[facility] Installer at [facility] as we discussed for further evaluation of your bile duct stricture. You also need a routine screening colonoscopy. You will also need a consultation with a Surgeon in your area to discuss the possibility of removing your gallbladder. Please HOLD off on taking your atorvastatin and your Valtrex for now until your liver tests are back to normal. Your PCP or the GI specialist can repeat your blood work in 1 week. Do not take any of your supplements for now either. Please wear the compression stockings for your long car ride home and stop once on the hour to walk around and stretch your legs to prevent blood clots. It was a pleasure taking care of you! -Melba Berkowitz M.D. Pending Studies at Discharge: No Stand-Alone Forms: My [facility] Medications and DC Order Prescriptions: New acetaminophen 500 mg Tablet 1,000 mg PO Q8H PRN (Reason: pain) Qty: 30 RF: 0 hydrocodone-acetaminophen 5-325 mg Tablet 1 tab PO Q4H PRN (Reason: moderate pain) Qty: 7 RF: 0 Continued loratadine 10 mg Tablet 10 mg PO DAILY PRN (Reason: Allergy Symptoms) RF: 0 Discontinued atorvastatin 20 mg tablet 40 mg PO HS RF: 0 valacyclovir 500 mg tablet 500 mg PO UD RF: 0 multivitamin Tablet 1 tab PO DAILY RF: 0 milk thistle 500 mg Capsule 0 mg PO DAILY RF: 0 selenium 100 mcg Tablet 100 mcg PO DAILY RF: 0 turmeric 400 mg Capsule 400 mg PO DAILY RF: 0 Discharge Orders: Discharge Order (Routine); Ordered 08/08/20 Ordered By: Melba Zaldivar/Other Patient Handouts: Ileus, Low-Fat Cooking Tips, ERCP Endoscopic Retrograde ..., Treating Gallstones, Understanding Pancreatitis, Discharge Instructions for Acute ..., Understanding Intestinal Obstruction Admission Data Admit Date/Time: 08/02/20 17:32 Attending Provider: Melba Berkowitz Admit Provider: Melba Berkowitz Primary Care Provider: PCP,NO Other Providers: Melba Berkowitz ; Asuncion Menendez ; Jose M Franklin Other Interventions: Discharge Summary Assessment (RN) Last Done: 08/08/20 11:28 Coding Level of Care Code D/C Day Management >30 mins Diagnoses Acute cholecystitis K81.0 Choledocholithiasis K80.50 Biliary stricture K83.1 Ileus K56.7 Post-ERCP acute pancreatitis K91.89; K85.90 Urinary retention R33.9 Hypoxia R09.02 Elevated LFTs R79.89 Abdominal pain R10.11 Abdominal location: right upper quadrant Hyperlipidemia E78.5 Hyperlipidemia type: unspecified Macrocytosis without anemia D75.89 DVT prophylaxis Z29.9
[2020-08-08] MEDS ORDERED: POT PHOSPHATE MONOBASIC W/ SOD TAB PO ONE (11:00)
== END 2020-08-08 13:34 | disposition home or self-care (01) | DRG 444 ==
LOC: ED 10:52 → 3W 17:32 → SUATTDRO 17:32 → 3W 18:37